=== PATIENT | male | born 1935 | race Caucasian/White ===

== ENCOUNTER 2017-02-20 17:01 | Emergency (ER) | payer MEDICARE, BC ==
[2017-02-20 17:40] VITALS: RESP 18
[2017-02-20] MEDS ORDERED: SODIUM CHLORIDE 0.9% 1,000 ML IV ONE (19:37)
[2017-02-20] MEDS ORDERED: MORPHINE SULFATE 4 MG/ML SYRINGE IVP STA (19:37)
[2017-02-20] MEDS ORDERED: RX INFO: IV CONTRAST WAS GIVEN 1 EACH MISC MISCELLANE PRN (19:37)
[2017-02-20] MEDS ORDERED: ONDANSETRON 4 MG/2 ML VIAL IVP STA (19:37)
--- NOTE | 2017-02-20 20:32 | ED ---
Abdominal Pain HPI - General Chief Complaint: Abdominal Pain Stated Complaint: ABDOMINAL PAIN X 1 DAYS Source: patient Mode of arrival: ambulatory Limitations: no limitations - History of Present Illness Initial Comments: 81-year-old male with past medical history of COPD, GI bleed, osteoporosis, prostate disorder, peptic ulcer disease, bleeding ulcer, upper endoscopy and lower endoscopy presented for evaluation of abdominal pain since last night at 10 PM. He states that he is feeling fine right up until this point and then has been having diffuse abdominal pain. He states that he previously has a perforated viscus that required surgical intervention and that this feels mildly similar. He states his last dose about 8 hours ago and he denies any chest pain, shortness of breath, fevers, chills, vomiting but does admit to nausea. - Related Data Home Medications Medication Instructions Recorded Confirmed Aspirin EC [Ecotrin Low Dose] 81 mg PO DAILY 09/20/14 02/20/17 Tamsulosin HCl [Flomax] 0.4 mg PO DAILY 09/25/14 02/20/17 [id number] [id number] 1 tab PO DAILY PRN 02/20/17 02/20/17 [Excedrin] Previous Rx's Medication Instructions Recorded HYDROcodone/APAP 5-325MG [[place] 1 - 2 tab PO Q6HR PRN #14 tab 02/20/17 5-325] Ibuprofen [Motrin] 800 mg PO Q8HR PRN #20 tab 02/20/17 Polyethylene Glycol 3350 [Miralax] 17 gm PO DAILY #30 packet 02/20/17 Allergies Allergy/AdvReac Type Severity Reaction Status Date / Time No Known Allergies Allergy Verified 02/20/17 19:17 Review of Systems ROS Statement: Those systems with pertinent positive or pertinent negative responses have been documented in the HPI. ROS Other: All systems not noted in ROS Statement are negative. Constitutional: Denies: fever, chills Eyes: Denies: eye pain, eye discharge, vision change ENT: Denies: ear pain, throat pain Respiratory: Denies: cough, dyspnea, wheezes, hemoptysis, stridor Cardiovascular: Denies: chest pain, palpitations, dyspnea on exertion, orthopnea , edema Endocrine: Denies: fatigue, polydipsia, polyuria Gastrointestinal: Reports: abdominal pain, nausea. Denies: vomiting, diarrhea, constipation, hematemesis, melena, hematochezia Genitourinary: Denies: urgency, dysuria Musculoskeletal: Denies: back pain, arthralgia, myalgia Skin: Denies: rash, lesions Neurological: Denies: headache, weakness, numbness Psychiatric: Denies: anxiety, depression Hematological/Lymphatic: Denies: easy bleeding, easy bruising Past Medical History Past Medical History: COPD, GI Bleed, Osteoarthritis (OA), Prostate Disorder Additional Past Medical History / Comment(s): PUD/bleeding ulcer/BPH/OA/tobacco use. History of Any Multi-Drug Resistant Organisms: None Reported Past Surgical History: No Surgical Hx Reported Additional Past Surgical History / Comment(s): upper endoscopy, colonoscopy, Past Anesthesia/Blood Transfusion Reactions: No Reported Reaction Past Psychological History: No Psychological Hx Reported Additional Psychological History / Comment(s): Pt resides in a home with and adult oscar and her family. He is independent. Pt drives a car. Smoking Status: Former smoker Past Alcohol Use History: None Reported, Rare Past Drug Use History: None Reported - Past Family History Father Family Medical History: No Reported History, COPD, Vascular Disorder (Father at age of 59 from cerebral aneurysm and he also had COPD) Mother Family Medical History: No Reported History, Hypertension (Mother at age of 79 she had a history of hypertension) Brother(s) Family Medical History: Coronary Artery Disease (CAD) (Brother at age 48 from massive myocardial infarction.) Sister(s) Family Medical History: No Reported History (One sister no major medical problem.) Daughter(s) Family Medical History: No Reported History (2 daughter one of them at age of 32 from a drug overdose.) General Exam Limitations: no limitations General appearance: alert, in no apparent distress Head exam: Present: atraumatic, normocephalic, normal inspection Eye exam: Present: normal appearance, PERRL, EOMI. Absent: scleral icterus, conjunctival injection, periorbital swelling ENT exam: Present: normal exam, mucous membranes moist Neck exam: Present: normal inspection. Absent: tenderness, meningismus, lymphadenopathy Respiratory exam: Present: normal lung sounds bilaterally. Absent: respiratory distress, wheezes, rales, rhonchi, stridor Cardiovascular Exam: Present: regular rate, normal rhythm, normal heart sounds. Absent: systolic murmur, diastolic murmur, rubs, gallop, clicks GI/Abdominal exam: Present: soft, tenderness, normal bowel sounds. Absent: distended, guarding, rebound, rigid Rectal exam: Present: deferred Extremities exam: Present: normal inspection, full ROM, normal capillary refill. Absent: tenderness, pedal edema, joint swelling, calf tenderness Back exam: Present: normal inspection Neurological exam: Present: alert, oriented X3, CN II-XII intact Psychiatric exam: Present: normal affect, normal mood Skin exam: Present: warm, dry, intact, normal color. Absent: rash Course Vital Signs 02/20/17 02/20/17 02/20/17 17:36 20:30 21:28 Temperature 98 F Pulse Rate 93 102 H 97 Respiratory 18 18 18 Rate Blood Pressure 178/99 153/79 160/80 O2 Sat by Pulse 96 97 100 Oximetry 02/20/17 23:02 Temperature 98.3 F Pulse Rate 98 Respiratory 18 Rate Blood Pressure 140/93 O2 Sat by Pulse 97 Oximetry Medical Decision Making - Medical Decision Making 81-year-old male with a past medical history of COPD, GI bleed, OA, prostate disorder, upper endoscopy, lower endoscopy presented for evaluation of diffuse abdominal pain since 10:00 last night. He has a past medical history of an abdominal perforation and states this feels similar. On physical examination he has a firm abdomen to palpation but the patient states that he works out a lot and it is only mildly tighter than normal. No pulsatile masses are palpated. Concern for recurrent perforation versus bowel traction. We'll obtain CT abdomen and pelvis with IV contrast, labs, EKG, chest x-ray and provide pain control and IV fluids. Labs revealed a mild leukocytosis but otherwise no other significant abnormalities. CT abdomen and pelvis showed prominent bilateral pelvic adenopathy consistent with metastatic carcinoma. The patient was reevaluated and had improvement in his pain and nausea. He was informed of these results with his family present and offered admission as he does not currently have a primary care physician and this would help get him established with both a PCP as well as hematology oncology. He acknowledged the benefit of this but stated that he would rather go home tonight as he is feeling much better. He was informed that he would be given referrals for both the on-call medicine physician as well as to referrals for hematology oncology. He was advised to make appointments and follow-up but to return if his symptoms should worsen or persist. The patient acknowledged an understanding of this information and agreed with this plan of care. - Lab Data Result diagrams: 02/20/17 20:15 02/20/17 20:15 Lab Results 02/20/17 02/20/17 02/20/17 Range/Units 20:15 20:15 20:15 WBC 12.7 H (3.8-10.6) k/uL RBC 5.82 (4.30-5.90) m/uL Hgb 16.5 (13.0-17.5) gm/dL Hct 47.7 (39.0-53.0) % MCV 82.0 (80.0-100.0) fL MCH 28.3 (25.0-35.0) pg MCHC 34.5 (31.0-37.0) g/dL RDW 14.1 (11.5-15.5) % Plt Count 194 (150-450) k/uL Neutrophils % 86 % Lymphocytes % 7 % Monocytes % 5 % Eosinophils % 1 % Basophils % 0 % Neutrophils # 10.9 H (1.3-7.7) k/uL Lymphocytes # 0.8 L (1.0-4.8) k/uL Monocytes # 0.6 (0-1.0) k/uL Eosinophils # 0.2 (0-0.7) k/uL Basophils # 0.1 (0-0.2) k/uL PT (9.0-12.0) sec INR (<1.1) APTT (22.0-30.0) sec Sodium 140 (137-145) mmol/L Potassium 3.8 (3.5-5.1) mmol/L Chloride 104 (98-107) mmol/L Carbon Dioxide 24 (22-30) mmol/L Anion Gap 12 mmol/L BUN 8 L (9-20) mg/dL Creatinine 1.00 (0.66-1.25) mg/dL Est GFR (MDRD) Af Amer >60 (>60 ml/min/1.73 sqM) Est GFR (MDRD) Non-Af >60 (>60 ml/min/1.73 sqM) Glucose 107 H (74-99) mg/dL Plasma Lactic Acid Nish 1.0 (0.7-2.0) mmol/L Calcium 9.6 (8.4-10.2) mg/dL Total Bilirubin 0.8 (0.2-1.3) mg/dL AST 22 (17-59) U/L ALT 32 (21-72) U/L Alkaline Phosphatase 60 (38-126) U/L Troponin I (0.000-0.034) ng/mL NT-Pro-B Natriuret Pep pg/mL Total Protein 6.9 (6.3-8.2) g/dL Albumin 4.1 (3.5-5.0) g/dL Lipase 48 (23-300) U/L 02/20/17 02/20/17 02/20/17 Range/Units 20:15 20:15 20:15 WBC (3.8-10.6) k/uL RBC (4.30-5.90) m/uL Hgb (13.0-17.5) gm/dL Hct (39.0-53.0) % MCV (80.0-100.0) fL MCH (25.0-35.0) pg MCHC (31.0-37.0) g/dL RDW (11.5-15.5) % Plt Count (150-450) k/uL Neutrophils % % Lymphocytes % % Monocytes % % Eosinophils % % Basophils % % Neutrophils # (1.3-7.7) k/uL Lymphocytes # (1.0-4.8) k/uL Monocytes # (0-1.0) k/uL Eosinophils # (0-0.7) k/uL Basophils # (0-0.2) k/uL PT 10.3 (9.0-12.0) sec INR 1.0 (<1.1) APTT 25.8 (22.0-30.0) sec Sodium (137-145) mmol/L Potassium (3.5-5.1) mmol/L Chloride (98-107) mmol/L Carbon Dioxide (22-30) mmol/L Anion Gap mmol/L BUN (9-20) mg/dL Creatinine (0.66-1.25) mg/dL Est GFR (MDRD) Af Amer (>60 ml/min/1.73 sqM) Est GFR (MDRD) Non-Af (>60 ml/min/1.73 sqM) Glucose (74-99) mg/dL Plasma Lactic Acid Nish (0.7-2.0) mmol/L Calcium (8.4-10.2) mg/dL Total Bilirubin (0.2-1.3) mg/dL AST (17-59) U/L ALT (21-72) U/L Alkaline Phosphatase (38-126) U/L Troponin I <0.012 (0.000-0.034) ng/mL NT-Pro-B Natriuret Pep 110 pg/mL Total Protein (6.3-8.2) g/dL Albumin (3.5-5.0) g/dL Lipase (23-300) U/L 02/20/17 20:24 Normal sinus rhythm with right bundle branch block and a ventricular rate of 98 , PA interval 194, QRS 120, QT/QTC 352/449. Disposition Clinical Impression: Abdominal pain, Pelvic lymphadenopathy, Nausea Disposition: HOME SELF-CARE Condition: Stable Instructions: Abdominal Pain (ED) Additional Instructions: Please use medication as discussed. Please follow up with family doctor if symptoms have not improved over the next two days. Please return to the emergency room if your symptoms increase or worsen or for any other concerns. Prescriptions: HYDROcodone/APAP 5-325MG [[place] 5-325] 1 - 2 tab PO Q6HR PRN #14 tab PRN Reason: Analgesia Ibuprofen [Motrin] 800 mg PO Q8HR PRN #20 tab PRN Reason: Analgesia Polyethylene Glycol 3350 [Miralax] 17 gm PO DAILY #30 packet Referrals: None,Stated [Primary Care Provider] - 1-2 days Franco Gill MD [STAFF PHYSICIAN] - 1-2 days Bridgett Amanda MD [STAFF PHYSICIAN] - 1-2 days Nelson Barraza MD [STAFF PHYSICIAN] - 1-2 days Time of Disposition: 22:44
[2017-02-20 20:36] LABS: Basophils # (A) 0.1 k/uL (0-0.2); Basophils % (A) 0 %; CH 29.2; CHCM 35.8; Eosinophils # (A) 0.2 k/uL (0-0.7); Eosinophils % (A) 1 %; HCT 47.7 % (39.0-53.0); HGB 16.5 gm/dL (13.0-17.5); Luc % (Auto) 1; Lymphocytes # (A) 0.8 k/uL (1.0-4.8); Lymphocytes % (A) 7 %; MCH 28.3 pg (25.0-35.0); MCHC 34.5 g/dL (31.0-37.0); Monocytes # (A) 0.6 k/uL (0-1.0); Monocytes % (A) 5 %; Neutrophils # (A) 10.9 k/uL (1.3-7.7); Neutrophils % (A) 86 %; RBC 5.82 m/uL (4.30-5.90); RDW 14.1 % (11.5-15.5); WBC 12.7 k/uL (3.8-10.6)
[2017-02-20 20:45] LABS: Partial Thromboplastin Time 25.8 sec (22.0-30.0); Prothrombin Time 10.3 sec (9.0-12.0)
[2017-02-20 20:48] LABS: ALT 32 U/L (21-72); AST 22 U/L (17-59); Alkaline Phosphatase 60 U/L (38-126); Anion Gap 12 mmol/L; Blood Urea Nitrogen 8 mg/dL (9-20); Calcium 9.6 mg/dL (8.4-10.2); Carbon Dioxide 24 mmol/L (22-30); Chloride 104 mmol/L (98-107); Glucose 107 mg/dL (74-99); Non-African American GFR(MDRD) >60 (>60 ml/min/1.73 sqM); Potassium 3.8 mmol/L (3.5-5.1); Sodium 140 mmol/L (137-145); Total Bilirubin 0.8 mg/dL (0.2-1.3); Total Protein 6.9 g/dL (6.3-8.2)
[2017-02-20] MEDS ORDERED: HYDROmorphone 1 MG/ML 1 ML SYRINGE IVP STA (21:54)
--- NOTE | 2017-02-20 22:05 | XR ---
EXAMINATION TYPE: XR chest 2V DATE OF EXAM: 02/20/2017 8:49 PM HISTORY: Pain TECHNIQUE: Frontal and lateral views of the chest are obtained. FINDINGS: There is no focal air space opacity, pleural effusion, or pneumothorax seen. The cardiac silhouette size is within normal limits. The osseous structures are intact. IMPRESSION: No acute cardiopulmonary process.
--- NOTE | 2017-02-20 22:16 | CT ---
EXAMINATION TYPE: CT abdomen pelvis w con DATE OF EXAM: 02/20/2017 9:24 PM COMPARISON: 08/28/2015 HISTORY: Generalized abdominal pain with nausea and constipation. CT DLP: 1500.00 mGycm Automated exposure control for dose reduction was used. TECHNIQUE: Helical acquisition of images was performed from the lung bases through the pelvis. CONTRAST: Performed without Oral Contrast and with IV Contrast, patient injected with 100 mL of Omnipaque 300. FINDINGS: LUNG BASES: No significant abnormality is appreciated. LIVER/GB: No significant abnormality is appreciated. PANCREAS: No significant abnormality is seen. SPLEEN: No significant abnormality is seen. ADRENALS: No significant abnormality is seen. KIDNEYS: No significant abnormality is seen. FREE AIR: No free air is visualized. RETROPERITONEAL ADENOPATHY: None visualized REPRODUCTIVE ORGANS: No significant abnormality is seen URINARY BLADDER: No significant abnormality is seen. PELVIC ADENOPATHY: There is right upper inguinal and right external iliac adenopathy, with the latte r measuring 2.6 x 2.1 cm in cross-section. This right internal adenopathy measuring 4.1 x 2.7 cm in c ross-section. There is left internal iliac adenopathy measuring 2.6 x 2.0 cm. PROSTATE AND URINARY BLADDER: There is heterogeneous attenuation of the prostate parenchyma with mode rate-plus prostate enlargement, and there is asymmetric prominence of the seminal vesicles, larger on the right. The urinary bladder is mildly distended, and there is relatively mild diffuse bladder mu ral thickening, particularly involving the dome of the urinary bladder. 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 OSSEOUS STRUCTURES: No significant abnormality is seen. BOWEL: No significant abnormality is seen. OTHER: Generalized atherosclerotic calcifications are seen throughout the arterial anatomy, without a neurysmal dilation. IMPRESSION: THERE IS PROMINENT BILATERAL PELVIC ADENOPATHY, CONSISTENT WITH METASTATIC CARCINOMA.
[2017-02-20 23:04] VITALS: BP 140/93; PULSE 98; TEMP 98.3
== END 2017-02-20 22:50 | disposition home or self-care (01) ==
LOC: EC 17:01
DX: R10.9 Unspecified abdominal pain (principal); R11.0 Nausea; R59.0 Localized enlarged lymph nodes; I45.10 Unspecified right bundle-branch block; Z79.82 Long term (current) use of aspirin; Z79.899 Other long term (current) drug therapy; Z87.891 Personal history of nicotine dependence
CPT/HCPCS: 99285; 96374; 96375 ×2; 96361; 36415; 93005; 83880; 80053; 83605; 83690; 84484; 85025; 85610; 85730; 71020; 74177; J2270; J2405; J1170; Q9967

== ENCOUNTER 2017-03-06 14:48 | Inpatient (IN) | payer MEDICARE, BC ==
[2017-03-06] MEDS ORDERED: diphenhydrAMINE 50 MG/ML 1 ML VIAL IVP STA (16:06)
[2017-03-06] MEDS ORDERED: HYDROmorphone 1 MG/ML 1 ML SYRINGE IVP STA ×2 (16:06→18:04)
[2017-03-06] MEDS ORDERED: SODIUM CHLORIDE 0.9% 1,000 ML IV STA (16:06)
[2017-03-06] MEDS ORDERED: METOCLOPRAMIDE 5 MG/ML 2 ML VIAL IVP STA (16:06)
--- NOTE | 2017-03-06 16:06 | ED ---
Abdominal Pain HPI - General Chief Complaint: Abdominal Pain Stated Complaint: Abd Pain Time Seen by Provider: 03/06/17 15:55 Source: patient, RN notes reviewed, old records reviewed Mode of arrival: ambulatory Limitations: no limitations - History of Present Illness Initial Comments: This is a pleasant 81-year-old male presenting to the emergency department with 2 days of right upper quadrant and right lower quadrant abdominal pain. Patient reports that the pain will last for 3-4 minutes and then go away. He reports that he did have one episode of vomiting 2 days ago. He reports that the pain seems to be exacerbated with eating. Patient states that because the pain is worse with leaning has not been having a normal diet over the past few days therefore is not had normal bowel movements. Patient states that he has been diagnosed with prostate cancer and had a CAT scan done 2 weeks ago. Patient reports that he does have a follow-up appointment because the CAT scan showed increased pelvic lymphadenopathy consistent with metastases from prostate cancer. Patient reports that he does have follow-up appointment with his oncologist within the next few weeks. They are informed of these results and if there is something related to this, they want to consult. Patient reports that he's had no fever or chills. Denies any difficulty urinating. Denies any pain radiating towards the back.Patient has a history of peptic ulcer disease, COPD, GI bleed, osteoporosis, prostate cancer. Patient denies any recent fever, chills, shortness of breath, chest pain, back pain, numbness or tingling, dysuria or hematuria, constipation or diarrhea, headaches or visual changes, or any other current symptoms - Related Data Home Medications Medication Instructions Recorded Confirmed Aspirin EC [Ecotrin Low Dose] 81 mg PO DAILY 09/20/14 03/06/17 Tamsulosin HCl [Flomax] 0.4 mg PO DAILY 09/25/14 03/06/17 [id number] 1 tab PO DAILY PRN 02/20/17 03/06/17 [Excedrin] Cyanocobalamin [Vitamin B-12] 500 mcg PO DAILY 03/06/17 03/06/17 Fluticasone Nasal Levan [Flonase 1 spray EA NOSTRIL DAILY 03/06/17 03/06/17 Nasal Levan] Lisinopril [Zestril] 2.5 mg PO DAILY 03/06/17 03/06/17 Allergies Allergy/AdvReac Type Severity Reaction Status Date / Time No Known Allergies Allergy Verified 03/06/17 17:08 Review of Systems ROS Statement: Those systems with pertinent positive or pertinent negative responses have been documented in the HPI. ROS Other: All systems not noted in ROS Statement are negative. Past Medical History Past Medical History: COPD, GI Bleed, Osteoarthritis (OA), Prostate Disorder Additional Past Medical History / Comment(s): PUD/bleeding ulcer/BPH/OA/tobacco use. History of Any Multi-Drug Resistant Organisms: None Reported Past Surgical History: No Surgical Hx Reported Additional Past Surgical History / Comment(s): upper endoscopy, colonoscopy, Past Anesthesia/Blood Transfusion Reactions: No Reported Reaction Past Psychological History: No Psychological Hx Reported Additional Psychological History / Comment(s): Pt resides in a home with and adult oscar and her family. He is independent. Pt drives a car. Smoking Status: Former smoker Past Alcohol Use History: None Reported, Rare Past Drug Use History: None Reported - Past Family History Father Family Medical History: No Reported History, COPD, Vascular Disorder (Father at age of 59 from cerebral aneurysm and he also had COPD) Mother Family Medical History: No Reported History, Hypertension (Mother at age of 79 she had a history of hypertension) Brother(s) Family Medical History: Coronary Artery Disease (CAD) (Brother at age 48 from massive myocardial infarction.) Sister(s) Family Medical History: No Reported History (One sister no major medical problem.) Daughter(s) Family Medical History: No Reported History (2 daughter one of them at age of 32 from a drug overdose.) General Exam Limitations: no limitations General appearance: alert, in no apparent distress Head exam: Present: atraumatic, normocephalic, normal inspection Eye exam: Present: normal appearance, PERRL, EOMI. Absent: scleral icterus, conjunctival injection, periorbital swelling ENT exam: Present: normal exam, mucous membranes moist Neck exam: Present: normal inspection. Absent: tenderness, meningismus, lymphadenopathy Respiratory exam: Present: normal lung sounds bilaterally. Absent: respiratory distress, wheezes, rales, rhonchi, stridor Cardiovascular Exam: Present: regular rate, normal rhythm, normal heart sounds. Absent: systolic murmur, diastolic murmur, rubs, gallop, clicks GI/Abdominal exam: Present: soft, tenderness (Patient is tender to palpation over the right upper quadrant and right lower quadrant.), normal bowel sounds. Absent: distended, guarding, rebound, rigid Extremities exam: Present: normal inspection, full ROM, normal capillary refill. Absent: tenderness, pedal edema, joint swelling, calf tenderness Back exam: Present: normal inspection Neurological exam: Present: alert, oriented X3, CN II-XII intact Psychiatric exam: Present: normal affect, normal mood Skin exam: Present: warm, dry, intact, normal color. Absent: rash Course Vital Signs 03/06/17 03/06/17 03/06/17 15:04 16:46 17:45 Temperature 96.8 F L Pulse Rate 97 91 95 Respiratory 18 20 18 Rate Blood Pressure 125/69 148/92 137/95 O2 Sat by Pulse 97 98 98 Oximetry 03/06/17 03/06/17 03/06/17 19:15 20:10 21:37 Temperature 97.6 F Pulse Rate 78 89 89 Respiratory 16 22 18 Rate Blood Pressure 142/70 153/79 120/76 O2 Sat by Pulse 97 97 96 Oximetry Medical Decision Making - Medical Decision Making A 1-year-old male presenting to emergency Department with right lower quadrant abdominal pain. Patient was given IV fluids and lab work and pain medication. Lab work was relatively unremarkable. Patient is significantly tender in the right lower quadrant. Patient was given a CT abdomen and pelvis with contrast. Evidence is evident a small bowel obstruction. Patient had nasogastric tube placed and 2 L of fluid was drained from the intestines. Patient CAT scan showed evidence of a dilated pancreatic duct no focal pancreatic findings. Amylase and lipase are normal. Patient CAT scan did show multiple areas of pelvic lymphadenopathy and sclerotic lesion on the iliac bone which could represent metastases. is currently complaining to see Dr. lucio thornton for a biopsy of his prostate and further workup. I discussed the case with Dr. Contreras and patient will be admitted for a small bowel obstruction and further evaluation of his pancreas and dilation and pelvic lymphadenopathy and other findings from the CAT scan. Discussed the case with the nurse practitioner and patient will be admitted to Dr. Saldana. She discussed consult to Dr. Zhao for surgery as well as Dr. lucio thornton for prostate enlargement and further evaluation. Patient agrees to admission. - Lab Data Result diagrams: 03/06/17 16:40 03/06/17 16:40 Lab Results 03/06/17 03/06/17 03/06/17 Range/Units 16:40 16:40 16:40 WBC 12.4 H (3.8-10.6) k/uL RBC 5.93 H (4.30-5.90) m/uL Hgb 16.5 (13.0-17.5) gm/dL Hct 47.2 (39.0-53.0) % MCV 79.6 L (80.0-100.0) fL MCH 27.8 (25.0-35.0) pg MCHC 35.0 (31.0-37.0) g/dL RDW 13.1 (11.5-15.5) % Plt Count 523 H D (150-450) k/uL Neutrophils % 80 % Lymphocytes % 12 % Monocytes % 3 % Eosinophils % 3 % Basophils % 0 % Neutrophils # 9.9 H (1.3-7.7) k/uL Lymphocytes # 1.5 (1.0-4.8) k/uL Monocytes # 0.4 (0-1.0) k/uL Eosinophils # 0.3 (0-0.7) k/uL Basophils # 0.0 (0-0.2) k/uL Poikilocytosis Slight PT (9.0-12.0) sec INR (<1.1) APTT (22.0-30.0) sec Sodium 140 (137-145) mmol/L Potassium 3.9 (3.5-5.1) mmol/L Chloride 99 (98-107) mmol/L Carbon Dioxide 31 H (22-30) mmol/L Anion Gap 10 mmol/L BUN 18 (9-20) mg/dL Creatinine 0.93 (0.66-1.25) mg/dL Est GFR (MDRD) Af Amer >60 (>60 ml/min/1.73 sqM) Est GFR (MDRD) Non-Af >60 (>60 ml/min/1.73 sqM) Glucose 137 H (74-99) mg/dL Plasma Lactic Acid Nish 1.9 (0.7-2.0) mmol/L Calcium 10.5 H (8.4-10.2) mg/dL Total Bilirubin 0.6 (0.2-1.3) mg/dL AST 24 (17-59) U/L ALT 27 (21-72) U/L Alkaline Phosphatase 102 (38-126) U/L Troponin I (0.000-0.034) ng/mL Total Protein 7.2 (6.3-8.2) g/dL Albumin 3.8 (3.5-5.0) g/dL Amylase 60 (30-110) U/L Lipase 75 (23-300) U/L Urine Color Urine Appearance (Clear) Urine pH (5.0-8.0) Ur Specific Wynne (1.001-1.035) Urine Protein (Negative) Urine Glucose (UA) (Negative) Urine Ketones (Negative) Urine Blood (Negative) Urine Nitrite (Negative) Urine Bilirubin (Negative) Urine Urobilinogen (<2.0) mg/dL Ur Leukocyte Esterase (Negative) Urine RBC (0-5) /hpf Urine WBC (0-5) /hpf Ur Squamous Epith Cells (0-4) /hpf Urine Bacteria (None) /hpf Hyaline Casts (0-2) /lpf Urine Mucus (None) /hpf 03/06/17 03/06/17 03/06/17 Range/Units 16:40 16:40 17:53 WBC (3.8-10.6) k/uL RBC (4.30-5.90) m/uL Hgb (13.0-17.5) gm/dL Hct (39.0-53.0) % MCV (80.0-100.0) fL MCH (25.0-35.0) pg MCHC (31.0-37.0) g/dL RDW (11.5-15.5) % Plt Count (150-450) k/uL Neutrophils % % Lymphocytes % % Monocytes % % Eosinophils % % Basophils % % Neutrophils # (1.3-7.7) k/uL Lymphocytes # (1.0-4.8) k/uL Monocytes # (0-1.0) k/uL Eosinophils # (0-0.7) k/uL Basophils # (0-0.2) k/uL Poikilocytosis PT 10.1 (9.0-12.0) sec INR 1.0 (<1.1) APTT 28.5 (22.0-30.0) sec Sodium (137-145) mmol/L Potassium (3.5-5.1) mmol/L Chloride (98-107) mmol/L Carbon Dioxide (22-30) mmol/L Anion Gap mmol/L BUN (9-20) mg/dL Creatinine (0.66-1.25) mg/dL Est GFR (MDRD) Af Amer (>60 ml/min/1.73 sqM) Est GFR (MDRD) Non-Af (>60 ml/min/1.73 sqM) Glucose (74-99) mg/dL Plasma Lactic Acid Nish (0.7-2.0) mmol/L Calcium (8.4-10.2) mg/dL Total Bilirubin (0.2-1.3) mg/dL AST (17-59) U/L ALT (21-72) U/L Alkaline Phosphatase (38-126) U/L Troponin I <0.012 (0.000-0.034) ng/mL Total Protein (6.3-8.2) g/dL Albumin (3.5-5.0) g/dL Amylase (30-110) U/L Lipase (23-300) U/L Urine Color Yellow Urine Appearance Clear (Clear) Urine pH 5.5 (5.0-8.0) Ur Specific Wynne 1.050 H (1.001-1.035) Urine Protein Trace H (Negative) Urine Glucose (UA) Negative (Negative) Urine Ketones Negative (Negative) Urine Blood Negative (Negative) Urine Nitrite Negative (Negative) Urine Bilirubin Negative (Negative) Urine Urobilinogen 2.0 (<2.0) mg/dL Ur Leukocyte Esterase Trace H (Negative) Urine RBC 3 (0-5) /hpf Urine WBC 6 H (0-5) /hpf Ur Squamous Epith Cells <1 (0-4) /hpf Urine Bacteria Rare H (None) /hpf Hyaline Casts 7 H (0-2) /lpf Urine Mucus Occasional H (None) /hpf 03/06/17 16:43 EKG shows sinus rhythm. Evidence of right bundle branch block. Ventricular rate 79. Ecchymoses. There is duration 134 seconds. QT QTc is 4/467. No evidence of ST elevation or T-wave inversion. No evidence of a short ventricular arrhythmias. EKG was compared to 02/20/2017. - Radiology Data Radiology results: report reviewed Scattered air-fluid levels with minimally dilated loops of small bowel favored to represent ileus. No acute cardiopulmonary process. Unchanged from prior exam. CT abdomen and pelvis just findings of small bowel obstruction with transition point in the right lower quadrant surrounding mesenteric edema/inflammatory fat stranding. Extensive pelvic adenopathy with largest colonic operation a lymph node measuring 2.5 x 4.2 cm. Consideration could be given to percutaneous biopsy. Heterogeneous and grossly enlarged prostate. Given extensive local adenopathy correlation with PSA could strong consideration for prostate biopsy should be given. Also a solitary irregular sclerotic lesion within the left iliac bone that given the constellation of the above findings could be represent metastasis focused versus irregular bone island. Phone scan could be performed for further evaluation. Also there is evidence of dilation of the main pancreatic duct without focal pancreatic lesion. MRCP could be performed for further observation for underlying mass versus stricture. Disposition Clinical Impression: Small bowel obstruction, Pancreatic duct dilated, Pelvic lymphadenopathy, BPH ( benign prostatic hyperplasia) Disposition: ADMITTED IP TO THIS HOSP Condition: Stable Time of Disposition: 19:06
[2017-03-06 17:02] LABS: Basophils % (A) 0 %; CH 28.5; CHCM 35.9; Eosinophils # (A) 0.3 k/uL (0-0.7); Eosinophils % (A) 3 %; HCT 47.2 % (39.0-53.0); HGB 16.5 gm/dL (13.0-17.5); Luc # (Auto) 0.18; Luc % (Auto) 1; Lymphocytes # (A) 1.5 k/uL (1.0-4.8); Lymphocytes % (A) 12 %; MCH 27.8 pg (25.0-35.0); MCV 79.6 fL (80.0-100.0); Monocytes # (A) 0.4 k/uL (0-1.0); Monocytes % (A) 3 %; Neutrophils # (A) 9.9 k/uL (1.3-7.7); Neutrophils % (A) 80 %; Poikilocytosis Slight; RBC 5.93 m/uL (4.30-5.90); RDW 13.1 % (11.5-15.5); WBC 12.4 k/uL (3.8-10.6); WBC (Perox) 12.94
[2017-03-06] MEDS ORDERED: RX INFO: IV CONTRAST WAS GIVEN 1 EACH MISC MISCELLANE PRN (17:09)
[2017-03-06 17:10] LABS: ALT 27 U/L (21-72); AST 24 U/L (17-59); Alkaline Phosphatase 102 U/L (38-126); Amylase 60 U/L (30-110); Anion Gap 10 mmol/L; Blood Urea Nitrogen 18 mg/dL (9-20); Calcium 10.5 mg/dL (8.4-10.2); Carbon Dioxide 31 mmol/L (22-30); Chloride 99 mmol/L (98-107); Glucose 137 mg/dL (74-99); Non-African American GFR(MDRD) >60 (>60 ml/min/1.73 sqM); Potassium 3.9 mmol/L (3.5-5.1); Sodium 140 mmol/L (137-145); Total Bilirubin 0.6 mg/dL (0.2-1.3); Total Protein 7.2 g/dL (6.3-8.2)
--- NOTE | 2017-03-06 17:11 | XR ---
EXAMINATION TYPE: XR chest 2V DATE OF EXAM: 03/06/2017 COMPARISON: NONE HISTORY: Nausea and right-sided chest pain/abdominal pain. TECHNIQUE: Frontal and lateral views of the chest are obtained. FINDINGS: There is no pleural effusion or pneumothorax. Subtle increased density in the left lung ba ses thought to represent overlapping structures as it is not reproduced on the lateral image. No foca l consolidation. The cardiac silhouette size is within normal limits. The osseous structures are in tact. Degenerative changes are appreciated of the visualized thoracic spine and right acromioclavicul ar joint. IMPRESSION: No acute cardiopulmonary process, unchanged from the prior exam.
--- NOTE | 2017-03-06 17:13 | XR ---
EXAMINATION TYPE: XR KUB DATE OF EXAM: 03/06/2017 COMPARISON: NONE HISTORY: Abdominal pain and nausea TECHNIQUE: Single view upright abdominal radiograph was performed. FINDINGS: Few air-fluid levels are scattered throughout the abdomen within mildly dilated loops of sm all bowel. Largest loop of small bowel measures up to 3.5 cm within the mid abdomen. No abnormal calc ifications are appreciated within the abdomen or pelvis. Air is noted throughout the descending colon and sigmoid colon as well as within the rectal vault. Atheromatous changes are appreciated of the il iac arteries and their branches. Degenerative changes are seen of the femoral acetabular joints and l umbosacral spine. IMPRESSION: Scattered air-fluid levels within minimally dilated loops of small bowel favored to repre sent ileus.
[2017-03-06 17:15] LABS: Partial Thromboplastin Time 28.5 sec (22.0-30.0); Prothrombin Time 10.1 sec (9.0-12.0)
[2017-03-06 18:04] LABS: Appearance,Urine Clear (Clear); Bacteria,Urine Rare /hpf; Bilirubin,Urine Negative (Negative); Glucose,Urine (UA) Negative (Negative); Ketones,Urine Negative (Negative); Leukocyte Esterase,Urine Trace (Negative); Mucus,Urine Occasional /hpf; Nitrite,Urine Negative (Negative); PH, Urine 5.5 (5.0-8.0); Particle Count 5193; Protein,Urine Trace (Negative); RBC,Urine 3 /hpf (0-5); Squamous Epithelial Cell,Urine <1 /hpf (0-4); UA Billing (MACRO vs. MICRO) MICRO; WBC,Urine 6 /hpf (0-5)
--- NOTE | 2017-03-06 18:45 | CT ---
EXAMINATION TYPE: CT abdomen pelvis w con DATE OF EXAM: 03/06/2017 COMPARISON: NONE HISTORY: Right sided pain with nausea CT DLP: 940.9 mGycm Automated exposure control for dose reduction was used. TECHNIQUE: Helical acquisition of images was performed from the lung bases through the pelvis. CONTRAST: Performed without Oral Contrast and with IV Contrast, patient injected with 100 mL of Omnipaque 300. FINDINGS: LUNG BASES: Minimal bibasilar subsegmental atelectasis. LIVER/GB: Few scattered hypoattenuated hepatic lesions are seen predominating within the left lobe th at are subcentimeter and too small to accurately characterize, although may simply represent hepatic cysts. PANCREAS: The main pancreatic duct is dilated beginning at the pancreatic head/body junction extendin g throughout the pancreatic head, appearing to be dilated as it meets the common bile duct near the a mpulla of Vater. No radiographic sequela of chronic pancreatitis are noted. No side branch dilation i s seen. No evidence of acute pancreatitis. No discrete pancreatic mass or abnormal pancreatic enhance ment is appreciated. No intrahepatic or extrahepatic biliary ductal dilatation is seen. SPLEEN: No significant abnormality is seen. ADRENALS: No significant abnormality is seen. KIDNEYS: No significant abnormality is seen. FREE AIR: No free air is visualized. RETROPERITONEAL ADENOPATHY: None visualized REPRODUCTIVE ORGANS: The prostate is grossly enlarged and heterogenous containing calcifications with in the central gland. Prostate measures up to 6.6 cm in greatest transverse dimension with impression upon the posterior anterior urinary bladder. URINARY BLADDER: No significant abnormality is seen. PELVIC ADENOPATHY: Extensive high density pelvic adenopathy is appreciated greatest within the right iliac chain with the largest conglomeration of lymph nodes measuring up to 2.5 cm in short axis by 4 .2 cm situated between the internal and external iliac vasculature. Similarly on the left along the p elvic sidewall there is a second conglomeration of lymph nodes injuring 2.5 cm in short axis. Large e xternal chain iliac node anterior to the acetabulum measures 2.0 cm in short axis. Superficial inguin al lymphadenopathy is less pronounced. No evidence of periaortic or mesenteric adenopathy. OSSEOUS STRUCTURES: Solitary sclerotic lesion is seen within the left iliac bone with irregular jason ins. BOWEL: Large descending duodenal diverticulum is noted. There is gastrectasis without evidence of ga stric outlet obstruction. Numerous loops of small bowel are dilated predominating within the low cent ral abdomen measuring up to 4.0 cm. Transition point with loops of distally decompressed small bowel appears to be located within the right lower quadrant anterior to the psoas muscle. Mesenteric fat st randing is seen within the right lower quadrant. No evidence of pneumatosis intestinalis. Numerous si gmoid diverticula are noted without pericolonic fat stranding. Anastomotic site is seen within the sm all bowel within the right mid abdomen. OTHER: IMPRESSION: 1. FINDINGS SUGGESTING SMALL BOWEL OBSTRUCTION WITH TRANSITION POINT IN THE RIGHT LOWER QUADRANT AND SURROUNDING MESENTERIC EDEMA/INFLAMMATORY FAT STRANDING. 2. EXTENSIVE PELVIC ADENOPATHY WITH THE LARGEST CONGLOMERATION OF LYMPH NODES MEASURING 2.5 X 4.2 CM. CONSIDERATION COULD BE GIVEN TO PERCUTANEOUS BIOPSY. 3. HETEROGENOUS AND GROSSLY ENLARGED PROSTATE. GIVEN EXTENSIVE LOCAL PELVIC ADENOPATHY CORRELATION WI TH PSA, DIGITAL RECTAL EXAM AND CONSIDERATION FOR PROSTATE BIOPSY SHOULD BE GIVEN. 4. SOLITARY IRREGULAR SCLEROTIC LESION WITHIN THE LEFT ILIAC BONE THAT GIVEN THE CONSTELLATION OF ABO VE FINDINGS COULD REPRESENT METASTATIC FOCUS VERSUS IRREGULAR BONE ISLAND. BONE SCAN COULD BE PERFORM ED FOR FURTHER EVALUATION. 5. DILATION OF THE MAIN PANCREATIC DUCT WITHOUT FOCAL PANCREATIC LESION. MRCP COULD BE PERFORMED FOR FURTHER EVALUATION TO EVALUATE FOR UNDERLYING MASS VERSUS STRICTURE.
[2017-03-06] MEDS ORDERED: LORazepam 2 MG/ML SYRINGE IV PRN (19:29)
[2017-03-06] MEDS ORDERED: NALOXONE 0.4 MG/ML 1 ML VIAL IV PRN (19:29)
[2017-03-06] MEDS: HYDROmorphone 1 MG/ML 1 ML SYRINGE IV PRN (20:08)
[2017-03-06] MEDS: SODIUM CHLORIDE 0.9% 1,000 ML IV SCH (22:52)
[2017-03-06 23:00] VITALS: RESP 16
[2017-03-06] MEDS ORDERED: ONDANSETRON 4 MG/2 ML VIAL IVP PRN (23:23)
[2017-03-06] MEDS ORDERED: BENZOCAINE/MENTHOL LOZENG 1 EACH LOZENGE MUCOUS MEM PRN (23:26)
[2017-03-07] MEDS: HYDROmorphone 1 MG/ML 1 ML SYRINGE IV PRN (00:57)
[2017-03-07 01:43] LABS: Glucose,Whole Blood 170 mg/dL (75-99)
[2017-03-07 07:06] LABS: Glucose,Whole Blood 140 mg/dL (75-99)
[2017-03-07] MEDS: SODIUM CHLORIDE 0.9% 1,000 ML IV SCH ×3 (07:36→20:03)
[2017-03-07] MEDS: HEPARIN SODIUM,PORCINE 5,000 UNIT/ML 1 ML VIAL SQ SCH ×2 (07:56→20:06)
[2017-03-07 08:12] LABS: Basophils % (A) 0 %; CHCM 34.6; Eosinophils % (A) 0 %; HCT 45.4 % (39.0-53.0); HDW 3.55; HGB 15.1 gm/dL (13.0-17.5); Luc # (Auto) 0.15; Luc % (Auto) 1; Lymphocytes % (A) 9 %; MCHC 33.2 g/dL (31.0-37.0); MCV 81.3 fL (80.0-100.0); Monocytes # (A) 0.6 k/uL (0-1.0); Monocytes % (A) 5 %; Neutrophils % (A) 85 %; Poikilocytosis Slight; RBC 5.58 m/uL (4.30-5.90); RDW 13.4 % (11.5-15.5); WBC 11.8 k/uL (3.8-10.6); WBC (Perox) 11.82
[2017-03-07 08:20] LABS: Anion Gap 9 mmol/L; Blood Urea Nitrogen 26 mg/dL (9-20); Calcium 9.6 mg/dL (8.4-10.2); Carbon Dioxide 30 mmol/L (22-30); Chloride 103 mmol/L (98-107); Glucose 133 mg/dL (74-99); Magnesium 2.2 mg/dL (1.6-2.3); Non-African American GFR(MDRD) >60 (>60 ml/min/1.73 sqM); Potassium 4.3 mmol/L (3.5-5.1); Sodium 142 mmol/L (137-145)
[2017-03-07] MEDS: PANTOPRAZOLE 40 MG/10 ML VIAL IV SCH (09:49)
[2017-03-07] MEDS ORDERED: KETOROLAC 30 MG/ML 1 ML VIAL IVP PRN (10:06)
[2017-03-07 12:03] LABS: Glucose,Whole Blood 113 mg/dL (75-99)
[2017-03-07] MEDS: HYDROmorphone 1 MG/ML 1 ML SYRINGE IVP PRN ×2 (14:25→20:03)
--- NOTE | 2017-03-07 15:12 | HP ---
DATE OF ADMISSION: Patient is a very pleasant 81-year-old gentleman who came in with complaints of diffuse mild abdominal pain. Patient was having nausea, vomiting. Patient was subsequently admitted. He was found to have a partial small bowel obstruction. Patient was subsequently admitted. Patient's CT of the abdomen also showed some significant adenopathy along with pancreatic bile ductal dilatation. Patient has prostate cancer, follows with Urology as an outpatient. Patient had leukocytosis without any signs or symptoms of sepsis. Patient has an NG tube which drained about 1.8 liters since yesterday. Patient is at present on 125 mL of normal saline with mildly worsening creatinine. The NG tube drainage did slow down. REVIEW OF SYSTEMS: CONSTITUTIONAL: No fever, no malaise, no fatigue. HEENT: No recent visual problems or hearing problems. Denied any sore throat. CARDIOVASCULAR: No chest pain, orthopnea, PND, no palpitations, no syncope. PULMONARY: No shortness of breath, no cough, no hemoptysis. GASTROINTESTINAL: As described in HPI. NEUROLOGICAL: No headaches, no weakness, no numbness. HEMATOLOGICAL: Denies any bleeding or petechiae. GENITOURINARY: Denies any burning micturition, frequency, or urgency. MUSCULOSKELETAL/RHEUMATOLOGICAL: Denies any joint pain, swelling, or any muscle pain. ENDOCRINE: Denies any polyuria or polydipsia. The rest of the 14 point review of systems is negative. Home medications include: 1. Aspirin. 2. Tamsulosin. 3. Cyanocobalamin. 4. Fluticasone. 5. Lisinopril. ALLERGIES: NO KNOWN DRUG ALLERGIES. Past medical history is significant for: 1. COPD, but patient is not taking any medications at home. 2. GI bleed in the past. 3. Prostate cancer, for which patient follows with Urology. SOCIAL HISTORY: Former smoker. Denied any alcohol abuse or any drug abuse. FAMILY HISTORY: Father had COPD and at age 59 with cerebral aneurysm. Mother had hypertension, at age 79. Brother had coronary artery disease. PHYSICAL EXAMINATION: VITAL SIGNS: Temperature 98.4, pulse of 89, respiratory rate of 16. Blood pressure is 119/61. Saturating at 92% on room air. GENERAL: The patient is alert and oriented x3, not in any acute distress. Well developed, well nourished. HEENT: Pupils are round and equally reacting to light. EOMI. No scleral icterus. No conjunctival pallor. Normocephalic, atraumatic. No pharyngeal erythema. No thyromegaly. CARDIOVASCULAR: S1 and S2 present. No murmurs, rubs, or gallops. PULMONARY: Chest is clear to auscultation, no wheezing or crackles. ABDOMEN: Patient does have fairly good bowel sounds. Abdomen distention improved apparently since yesterday. No abdominal pain. Patient has an NG tube in place. MUSCULOSKELETAL: No joint swelling or deformity. EXTREMITIES: No cyanosis, clubbing, or pedal edema. NEUROLOGICAL: Gross neurological examination did not reveal any focal deficits. SKIN: No rashes. LABORATORY DATA: CBC, CMP are abnormal for leukocytosis with WBC count of 12,400; now came down to 11,800. BUN of 26, creatinine 1.16. ASSESSMENT AND PLAN: 1. Partial small bowel obstruction. Patient has an NG tube. Conservative measures. IV fluids at 125 mL/hour. 2. Chronic obstructive pulmonary disease without any acute exacerbation. Will use albuterol as needed. 3. Prostate cancer, for which he is following with Urology. Patient has metastatic disease as well. 4. Hypertension. Hold off antihypertensives because of severe nausea, vomiting. Patient is on Lisinopril, which will be held at this point of time. 5. Tachycardia secondary to dehydration, which is expected to improve with IV fluids. 6. Leukocytosis, reactive response secondary to partial small bowel obstruction. I did not see signs or symptoms of infection, particularly pneumonia or UTI at this time, although patient's urine showed rare bacteria.
--- NOTE | 2017-03-07 16:23 | P.GSCN ---
History of Present Illness Consult date: 03/07/17 Reason for Consult: Bowel obstruction History of present illness: Patient came to the hospital with complaints of crampy abdominal pain and bloating and nausea. He was having vomiting but that was a minor issue he states. This was going on for the last few weeks reportedly. He is having bowel function he states. Even today is passing flatus. A CAT scan was performed which revealed findings consistent with either ileus or bowel obstruction. The distended small bowel is seen entering into the right lower quadrant were gradually tapers. The patient has a history of a previous bowel obstruction. He did not know the cause for that. There is evidence of a previous small bowel resection on CAT scan. This was performed [place] [address] Medina. He is complaining of pain at the nasogastric tube site. He says his abdominal pain has now resolved. He did have quite significant nasogastric output over 2 L in the first several hours. His white blood cell count is 11.8. Hemodynamically he is stable. The CAT scan additionally shows a distended pancreatic duct. Proximal pancreatic pathology has not been completely ruled out. Review of Systems The patient denies any acute changes in his vision or hearing, no dysphagia or odynophagia, no chest pain or shortness of breath, no dysuria or hematuria, no headache, no runny nose, no rectal bleeding or melena, no unexplained weight loss Past Medical History Past Medical History: COPD, GI Bleed, Osteoarthritis (OA), Prostate Disorder Additional Past Medical History / Comment(s): PUD/bleeding ulcer/BPH/OA/tobacco use. History of Any Multi-Drug Resistant Organisms: None Reported Past Surgical History: No Surgical Hx Reported Additional Past Surgical History / Comment(s): upper endoscopy, colonoscopy, Past Anesthesia/Blood Transfusion Reactions: No Reported Reaction Past Psychological History: No Psychological Hx Reported Additional Psychological History / Comment(s): Pt resides in a home with and adult oscar and her family. He is independent. Pt drives a car. Smoking Status: Former smoker Past Alcohol Use History: None Reported, Rare Additional Past Alcohol Use History / Comment(s): smoked from 1946 to 1974 2 ppd. Past Drug Use History: None Reported Additional Drug Use History / Comment(s): used cocaine in the s - Past Family History Father Family Medical History: No Reported History, COPD, Vascular Disorder (Father at age of 59 from cerebral aneurysm and he also had COPD) Additional Family Medical History / Comment(s): age 59 cerebral anuerysm Mother Family Medical History: No Reported History, Hypertension (Mother at age of 79 she had a history of hypertension) Brother(s) Family Medical History: Coronary Artery Disease (CAD) (Brother at age 48 from massive myocardial infarction.) Additional Family Medical History / Comment(s): at age 48 massive mi Sister(s) Family Medical History: No Reported History (One sister no major medical problem.) Daughter(s) Family Medical History: No Reported History (2 daughter one of them at age of 32 from a drug overdose.) Medications and Allergies Home Medications Medication Instructions Recorded Confirmed Type Aspirin EC [Ecotrin Low Dose] 81 mg PO DAILY 09/20/14 03/06/17 History Tamsulosin HCl [Flomax] 0.4 mg PO DAILY 09/25/14 03/06/17 History [id number] 1 tab PO DAILY PRN 02/20/17 03/06/17 History [Excedrin] Cyanocobalamin [Vitamin B-12] 500 mcg PO DAILY 03/06/17 03/06/17 History Fluticasone Nasal [employer] [Flonase 1 spray EA NOSTRIL DAILY 03/06/17 03/06/17 History Nasal [employer]] Lisinopril [Zestril] 2.5 mg PO DAILY 03/06/17 03/06/17 History Allergies Allergy/AdvReac Type Severity Reaction Status Date / Time No Known Allergies Allergy Verified 03/06/17 17:08 Surgical - Exam Vital Signs Temp Pulse Resp BP Pulse Ox 96.8 F L 97 18 125/69 97 03/06/17 15:04 03/06/17 15:04 03/06/17 15:04 03/06/17 15:04 03/06/17 15:04 Physical exam: General: Well-developed, well-nourished HEENT: Normocephalic, sclerae nonicteric Abdomen: Nontender, nondistended, positive bowel sounds, previous incision noted Extremities: No edema Neuro: Alert and oriented Results - Labs 03/07/17 07:40 03/07/17 07:40 Abnormal Lab Results - Last 24 Hours (Table) 03/06/17 03/06/17 03/06/17 Range/Units 16:40 16:40 17:53 WBC 12.4 H (3.8-10.6) k/uL RBC 5.93 H (4.30-5.90) m/uL MCV 79.6 L (80.0-100.0) fL Plt Count 523 H D (150-450) k/uL Neutrophils # 9.9 H (1.3-7.7) k/uL Carbon Dioxide 31 H (22-30) mmol/L BUN (9-20) mg/dL Glucose 137 H (74-99) mg/dL POC Glucose (mg/dL) (75-99) mg/dL Calcium 10.5 H (8.4-10.2) mg/dL Ur Specific [place] 1.050 H (1.001-1.035) Urine Protein Trace H (Negative) Ur Leukocyte Esterase Trace H (Negative) Urine WBC 6 H (0-5) /hpf Urine Bacteria Rare H (None) /hpf Hyaline Casts 7 H (0-2) /lpf Urine Mucus Occasional H (None) /hpf 03/07/17 03/07/17 03/07/17 Range/Units 01:30 07:05 07:40 WBC 11.8 H (3.8-10.6) k/uL RBC (4.30-5.90) m/uL MCV (80.0-100.0) fL Plt Count 528 H (150-450) k/uL Neutrophils # 10.0 H (1.3-7.7) k/uL Carbon Dioxide (22-30) mmol/L BUN (9-20) mg/dL Glucose (74-99) mg/dL POC Glucose (mg/dL) 170 H 140 H (75-99) mg/dL Calcium (8.4-10.2) mg/dL Ur Specific [place] (1.001-1.035) Urine Protein (Negative) Ur Leukocyte Esterase (Negative) Urine WBC (0-5) /hpf Urine Bacteria (None) /hpf Hyaline Casts (0-2) /lpf Urine Mucus (None) /hpf 03/07/17 03/07/17 Range/Units 07:40 12:02 WBC (3.8-10.6) k/uL RBC (4.30-5.90) m/uL MCV (80.0-100.0) fL Plt Count (150-450) k/uL Neutrophils # (1.3-7.7) k/uL Carbon Dioxide (22-30) mmol/L BUN 26 H (9-20) mg/dL Glucose 133 H (74-99) mg/dL POC Glucose (mg/dL) 113 H (75-99) mg/dL Calcium (8.4-10.2) mg/dL Ur Specific [place] (1.001-1.035) Urine Protein (Negative) Ur Leukocyte Esterase (Negative) Urine WBC (0-5) /hpf Urine Bacteria (None) /hpf Hyaline Casts (0-2) /lpf Urine Mucus (None) /hpf Diabetes panel 03/06/17 03/07/17 Range/Units 16:40 07:40 Sodium 140 142 (137-145) mmol/L Potassium 3.9 4.3 (3.5-5.1) mmol/L Chloride 99 103 (98-107) mmol/L Carbon Dioxide 31 H 30 (22-30) mmol/L BUN 18 26 H (9-20) mg/dL Creatinine 0.93 1.16 (0.66-1.25) mg/dL Glucose 137 H 133 H (74-99) mg/dL Calcium 10.5 H 9.6 (8.4-10.2) mg/dL AST 24 (17-59) U/L ALT 27 (21-72) U/L Alkaline Phosphatase 102 (38-126) U/L Total Protein 7.2 (6.3-8.2) g/dL Albumin 3.8 (3.5-5.0) g/dL Calcium panel 03/06/17 03/07/17 Range/Units 16:40 07:40 Calcium 10.5 H 9.6 (8.4-10.2) mg/dL Albumin 3.8 (3.5-5.0) g/dL Pituitary panel 03/06/17 03/07/17 Range/Units 16:40 07:40 Sodium 140 142 (137-145) mmol/L Potassium 3.9 4.3 (3.5-5.1) mmol/L Chloride 99 103 (98-107) mmol/L Carbon Dioxide 31 H 30 (22-30) mmol/L BUN 18 26 H (9-20) mg/dL Creatinine 0.93 1.16 (0.66-1.25) mg/dL Glucose 137 H 133 H (74-99) mg/dL Calcium 10.5 H 9.6 (8.4-10.2) mg/dL Adrenal panel 03/06/17 03/07/17 Range/Units 16:40 07:40 Sodium 140 142 (137-145) mmol/L Potassium 3.9 4.3 (3.5-5.1) mmol/L Chloride 99 103 (98-107) mmol/L Carbon Dioxide 31 H 30 (22-30) mmol/L BUN 18 26 H (9-20) mg/dL Creatinine 0.93 1.16 (0.66-1.25) mg/dL Glucose 137 H 133 H (74-99) mg/dL Calcium 10.5 H 9.6 (8.4-10.2) mg/dL Total Bilirubin 0.6 (0.2-1.3) mg/dL AST 24 (17-59) U/L ALT 27 (21-72) U/L Alkaline Phosphatase 102 (38-126) U/L Total Protein 7.2 (6.3-8.2) g/dL Albumin 3.8 (3.5-5.0) g/dL Assessment and Plan (1) Small bowel obstruction Narrative/Plan: Suspect small bowel obstruction secondary to intra-abdominal adhesions. Underlying ileus is certainly still a possibility however. Would continue conservative approach at this time. Repeat x-rays are pending for tomorrow. Keep nasogastric tube to suction. Patient will require further workup of his dilated pancreatic duct at some point. Status: Acute
[2017-03-07 17:48] LABS: Glucose,Whole Blood 109 mg/dL (75-99)
--- NOTE | 2017-03-07 18:09 | P.CONS ---
History of Present Illness - Reason for Consult Consult date: 03/07/17 Lymphadenopathy. 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 He had an enlarged prostate at that time and elevated PSA. He was following with the urology for possible prostate cancer. However he states that he was never definitely diagnosed with the prostate cancer or had a biopsy. According to the patient, he has not followed with urology for 1-2 years now due to family issues. The patient consented to the emergency room with complains of somewhat diffuse abdominal pain, along with the nausea over the last few days. He was found to have evidence of possible small bowel obstruction and was admitted with NG tube placed. He had CT of the abdomen and pelvis done, which showed the transition point in the right lower quadrant. Enlarged prostate, as well as significant adenopathy in the pelvis and lower abdomen was noted. In addition, dilatation of the pancreatic duct throughout the body of the pancreas was seen, without any definite mass .Consult was therefore placed a further evaluation. Review of Systems Constitutional: Reports poor appetite, Reports weight loss Eyes: denies blurred vision, denies pain Ears: deny: decreased hearing, ear discharge, earache, tinnitus Ears, nose, mouth and throat: Denies headache, Denies sore throat Cardiovascular: Reports decreased exercise tolerance Respiratory: Denies cough Gastrointestinal: Reports abdominal pain, Reports nausea Genitourinary: Reports as per HPI, Reports urinary frequency, Reports urinary hesitancy Musculoskeletal: Denies myalgias Integumentary: Denies pruritus, Denies rash Neurological: Reports weakness Psychiatric: Denies anxiety, Denies depression Endocrine: Reports fatigue, Reports weight change Hematologic/Lymphatic: Reports as per HPI, Reports lymphadenopathy Past Medical History Past Medical History: COPD, GI Bleed, Osteoarthritis (OA), Prostate Disorder Additional Past Medical History / Comment(s): PUD/bleeding ulcer/BPH/OA/tobacco use. History of Any Multi-Drug Resistant Organisms: None Reported Past Surgical History: No Surgical Hx Reported Additional Past Surgical History / Comment(s): upper endoscopy, colonoscopy, Past Anesthesia/Blood Transfusion Reactions: No Reported Reaction Past Psychological History: No Psychological Hx Reported Additional Psychological History / Comment(s): Pt resides in a home with and adult oscar and her family. He is independent. Pt drives a car. Smoking Status: Former smoker Past Alcohol Use History: None Reported, Rare Additional Past Alcohol Use History / Comment(s): smoked from 1946 to 1974 2 ppd. Past Drug Use History: None Reported Additional Drug Use History / Comment(s): used cocaine in the - Past Family History Father Family Medical History: No Reported History, COPD, Vascular Disorder (Father at age of 59 from cerebral aneurysm and he also had COPD) Additional Family Medical History / Comment(s): age 59 cerebral anuerysm Mother Family Medical History: No Reported History, Hypertension (Mother at age of 79 she had a history of hypertension) Brother(s) Family Medical History: Coronary Artery Disease (CAD) (Brother at age 48 from massive myocardial infarction.) Additional Family Medical History / Comment(s): at age 48 massive mi Sister(s) Family Medical History: No Reported History (One sister no major medical problem.) Daughter(s) Family Medical History: No Reported History (2 daughter one of them at age of 32 from a drug overdose.) Medications and Allergies Home Medications Medication Instructions Recorded Confirmed Type Aspirin EC [Ecotrin Low Dose] 81 mg PO DAILY 09/20/14 03/06/17 History Tamsulosin HCl [Flomax] 0.4 mg PO DAILY 09/25/14 03/06/17 History [id number] 1 tab PO DAILY PRN 02/20/17 03/06/17 History [Excedrin] Cyanocobalamin [Vitamin B-12] 500 mcg PO DAILY 03/06/17 03/06/17 History Fluticasone Nasal [place] [Flonase 1 spray EA NOSTRIL DAILY 03/06/17 03/06/17 History Nasal [place]] Lisinopril [Zestril] 2.5 mg PO DAILY 03/06/17 03/06/17 History Allergies Allergy/AdvReac Type Severity Reaction Status Date / Time No Known Allergies Allergy Verified 03/06/17 17:08 Physical Exam Vitals: Vital Signs Temp Pulse Pulse Resp BP BP BP 03/07/17 14:55 98 F 86 16 127/83 03/07/17 07:00 98.4 F 89 16 119/61 03/07/17 00:45 97.9 F 03/06/17 22:50 104 H 16 127/88 03/06/17 21:37 89 18 120/76 03/06/17 20:10 97.6 F 89 22 153/79 03/06/17 19:15 78 16 142/70 Pulse Ox 03/07/17 14:55 96 03/07/17 07:00 92 L 03/07/17 00:45 03/06/17 22:50 96 03/06/17 21:37 96 03/06/17 20:10 97 03/06/17 19:15 97 Intake and Output 03/07/17 03/07/17 03/07/17 06:59 14:59 22:59 Intake Total 960 Output Total 150 150 Balance 810 -150 Intake: IV 960 Sodium Chloride 0.9% 1, 960 000 ml @ 120 mls/hr IV . Q8H20M [facility] Rx#:[id number] Output: Urine 150 150 Other: Voiding Method Urinal Urinal Urinal # Voids 2 - Constitutional General appearance: no acute distress - EENT Eyes: EOMI, PERRLA ENT: hearing grossly normal, normal oropharynx - Neck Neck: no lymphadenopathy Thyroid: bilateral: normal size - Respiratory Respiratory: bilateral: CTA - Cardiovascular Rhythm: regular Heart sounds: normal: S1, S2 - Gastrointestinal General gastrointestinal: normal bowel sounds, soft - Integumentary Integumentary: normal - Neurologic Neurologic: CNII-XII intact - Musculoskeletal Musculoskeletal: generalized weakness, strength equal bilaterally - Psychiatric Psychiatric: A&O x's 3, appropriate affect Results CBC & Chem 7: 03/07/17 07:40 03/07/17 07:40 Labs: Abnormal Lab Results - Last 24 Hours (Table) 03/06/17 03/07/17 03/07/17 Range/Units 17:53 01:30 07:05 WBC (3.8-10.6) k/uL Plt Count (150-450) k/uL Neutrophils # (1.3-7.7) k/uL BUN (9-20) mg/dL Glucose (74-99) mg/dL POC Glucose (mg/dL) 170 H 140 H (75-99) mg/dL Ur Specific [place] 1.050 H (1.001-1.035) Urine Protein Trace H (Negative) Ur Leukocyte Esterase Trace H (Negative) Urine WBC 6 H (0-5) /hpf Urine Bacteria Rare H (None) /hpf Hyaline Casts 7 H (0-2) /lpf Urine Mucus Occasional H (None) /hpf 03/07/17 03/07/17 03/07/17 Range/Units 07:40 07:40 12:02 WBC 11.8 H (3.8-10.6) k/uL Plt Count 528 H (150-450) k/uL Neutrophils # 10.0 H (1.3-7.7) k/uL BUN 26 H (9-20) mg/dL Glucose 133 H (74-99) mg/dL POC Glucose (mg/dL) 113 H (75-99) mg/dL Ur Specific [place] (1.001-1.035) Urine Protein (Negative) Ur Leukocyte Esterase (Negative) Urine WBC (0-5) /hpf Urine Bacteria (None) /hpf Hyaline Casts (0-2) /lpf Urine Mucus (None) /hpf 03/07/17 Range/Units 17:46 WBC (3.8-10.6) k/uL Plt Count (150-450) k/uL Neutrophils # (1.3-7.7) k/uL BUN (9-20) mg/dL Glucose (74-99) mg/dL POC Glucose (mg/dL) 109 H (75-99) mg/dL Ur Specific [place] (1.001-1.035) Urine Protein (Negative) Ur Leukocyte Esterase (Negative) Urine WBC (0-5) /hpf Urine Bacteria (None) /hpf Hyaline Casts (0-2) /lpf Urine Mucus (None) /hpf Chest x-ray: report reviewed Abdominal x-ray: report reviewed CT scan - abdomen: report reviewed CT scan - pelvis: report reviewed Assessment and Plan (1) Pelvic lymphadenopathy Narrative/Plan: The appearance is certainly suspicious for malignancy, though primary site is not known at this time. According to the patient's chart, there was a history of prostate cancer. The patient states that there was suspicion but no definite diagnosis. According to the patient's history it appears that a previously the patient had BPH or at most an early stage prostate cancer He has not had any urology follow-up for your more. Therefore progression of the prostate cancer during that time to metastatic disease is certainly possible. He has been seen by urology. I will order a PSA. If this is markedly elevated, then it would support the adenopathy being related to prostate cancer. The patient was also noted to have a dilated pancreatic duct without any definite mass seen. This could be due to underdiagnose chronic hepatitis, but malignancy is not ruled out. CA 19-9 will also be ordered. If this is elevated , and PSA normal to low, then pancreatic malignancy with lymph node metastasis would need to be considered. In either of these 2 situations, the patient was subsequently need a biopsy Status: Acute (2) Small bowel obstruction Narrative/Plan: Dr. Zhao's note was reviewed. The patient has had a prior history of bowel obstruction and underwent resection. At this time it appears that the obstruction is most likely related to adhesions, rather than the adenopathy. He is being managed conservatively. Defer to Dr. Zhao for further management. Status: Acute
--- NOTE | 2017-03-07 21:50 | CONS ---
DATE OF CONSULTATION: 03/07/2017 REASON FOR CONSULTATION: Pelvic adenopathy and possible prostate cancer. The patient is an 81-year-old male admitted through the emergency room on 03/06 for evaluation of intermittent nausea, vomiting and abdominal distention. The patient says this first began on February 12. He was seen in the emergency room on 02/20 due to abdominal pain and released later that day. A CT scan of the abdomen at that time showed bilateral adenopathy in the region of the internal iliac vessels. The patient says that his intermittent nausea and vomiting continued. A CT scan of the abdomen and pelvis yesterday showed changes consistent with a small-bowel obstruction. The patient was admitted and has had placement of an NG tube and says he feels much better. Repeat CT scan continued to show adenopathy in the right and left internal iliac region with a diameter of lymph nodes between 2.5 and 3 cm. There was evidence of an enlarged prostate. There was also evidence of a sclerotic lesion near the left iliac bone near the sacroiliac junction which was felt to be possible metastatic disease. Nonspecific dilation of the pancreatic duct was noted. No renal abnormalities were present. The patient is well known to me. He was seen by me initially in 12/2014 due to symptoms of bladder outflow obstruction and a PSA of 13. The PSA had been rising gradually over the previous several years from a level of 8 in 10/2011 to the 13 noted in 12/2014. The patient had a long history of bladder outflow obstruction and had been taking tamsulosin. I discussed the possibility that the elevated PSA could be from a slowly growing prostate cancer or prostatic enlargement, as the patient did have a symmetrically enlarged prostate. The patient elected not to proceed with biopsies and instead was started on finasteride. His PSA fell from a 13 in 12/2014 to 10 in 03/2015. 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 A CT urogram at that time showed no abnormalities of the upper urinary system and no pelvic adenopathy. The sclerotic lesion in the left iliac bone was present at that time and had also been present on a CT scan in09/2014. The patient did not return for followup cystoscopy until 04/2016, but at that time no cystoscopic abnormalities were noted. He said that he did not return for his scheduled appointment after that because of a combination of financial difficulties and an illness involving his . The patient has had no gross hematuria since 2014. He says he usually voids every 2 to 4 hours during the day and 2 or 3 times at night. He complains of occasional urgency, but does not have incontinence. Patient's past medical history is significant in regard to a small-bowel obstruction treated by Dr. Medina apparently with resection small-bowel in 09/2014. He has also undergone tonsillectomy and vasectomy. The patient says the only medications that he took on a regular basis were: 1. Tamsulosin and 2. Aspirin. REVIEW OF SYSTEMS: Significant mainly in regard to the above. The patient denies any bone pain. He says his abdominal pain is much better. He is passing flatus. SOCIAL HISTORY: The patient is a former smoker who smoked 2 packs per day for approximately 30 years before quitting this in 1974. Physical exam reveals a well-developed, 81-year-old male who is alert and oriented. Afebrile, blood pressure 127/83. HEENT: Nasogastric tube is in place and is draining green-brown material. No supraclavicular or cervical adenopathy. CHEST: Breathing is unlabored. ABDOMEN: Soft. No hepatosplenomegaly. No focal tenderness. GENITALIA: Both testicles are descended. No hernias noted. RECTAL: Not performed at this time. However, the patient's previous exam showed a prostate volume of over 50 mL which was symmetric in size and consistency. Additional laboratory evaluation on admission included a BUN of 18, creatinine 0.93. Calcium was 10.5. IMPRESSION: Pelvic adenopathy. This has occurred over the last 18 months. Patient does have a history of low-grade bladder cancer, but it would be unusual for this to be metastatic. He does have prostatic enlargement with an elevated PSA in the past and it is possible that the adenopathy could be from prostate cancer; however, other causes cannot be excluded. RECOMMENDATION: PSA will be obtained. If PSA has risen markedly from 2014, then this would support a diagnosis of prostate cancer; however, I believe that eventually biopsy of the pelvic nodes may be necessary for confirmation. It does not appear that the bone lesion is new, as this has been present as long as 09/2014 and does not appear changed. Thank you for allowing me to participate in the care of this gentleman. KAY
[2017-03-08] MEDS: HYDROmorphone 1 MG/ML 1 ML SYRINGE IVP PRN ×2 (00:10→14:55)
[2017-03-08 02:09] LABS: Glucose,Whole Blood 98 mg/dL (75-99)
[2017-03-08] MEDS: SODIUM CHLORIDE 0.9% 1,000 ML IV SCH ×4 (06:15→23:36)
[2017-03-08 06:22] LABS: Glucose,Whole Blood 83 mg/dL (75-99)
[2017-03-08] MEDS: PANTOPRAZOLE 40 MG/10 ML VIAL IV SCH (08:25)
[2017-03-08] MEDS: HEPARIN SODIUM,PORCINE 5,000 UNIT/ML 1 ML VIAL SQ SCH ×2 (08:25→21:17)
[2017-03-08] MEDS ORDERED: MELATONIN 5 MG TABLET PO PRN (11:01)
[2017-03-08] MEDS ORDERED: LORazepam 2 MG/ML SYRINGE IV PRN (11:01)
--- NOTE | 2017-03-08 11:15 | P.PN ---
Subjective Principal diagnosis: Ileus versus small bowel obstruction The patient is denying any pain today he did have bowel movement this morning which was formed. Objective - Vital Signs Vital signs: Vital Signs Temp 97.7 F 03/08/17 07:00 Pulse 69 03/08/17 07:00 Resp 16 03/08/17 07:00 BP 167/74 03/08/17 07:00 Pulse Ox 94 L 03/08/17 07:00 Intake & Output 03/07/17 03/08/17 03/08/17 18:59 06:59 18:59 Intake Total 2140 Output Total 150 750 Balance -150 1390 Intake: IV 960 Sodium Chloride 0.9% 1, 960 000 ml @ 120 mls/hr IV . Q8H20M [facility] Rx#:[id number] Oral 1180 Output: Gastric Drainage 250 Urine 150 500 Other: Voiding Method Urinal Urinal Urinal # Voids 1 - Constitutional General appearance: Present: cooperative, no acute distress - Respiratory Respiratory: bilateral: CTA - Cardiovascular Rhythm: regular - Gastrointestinal General gastrointestinal: Present: decreased bowel sounds, distended (Some distention with tympany to percussion), soft. Absent: tenderness - Labs CBC & Chem 7: 03/07/17 07:40 03/07/17 07:40 Labs: Abnormal Lab Results - Last 24 Hours (Table) 03/07/17 03/07/17 Range/Units 12:02 17:46 POC Glucose (mg/dL) 113 H 109 H (75-99) mg/dL Assessment and Plan (1) Pelvic lymphadenopathy Status: Acute (2) Small bowel obstruction Status: Acute (3) Abdominal pain Status: Acute Plan: This is likely a ileus or partial small bowel obstruction. We'll repeat his x- ray today. If it shows improvement we'll clamp the tube and start him on some clear liquid diet. Further recommendations to follow.
[2017-03-08 11:51] LABS: Anion Gap 8 mmol/L; Blood Urea Nitrogen 21 mg/dL (9-20); Calcium 9.4 mg/dL (8.4-10.2); Carbon Dioxide 30 mmol/L (22-30); Chloride 108 mmol/L (98-107); Glucose 92 mg/dL (74-99); Non-African American GFR(MDRD) >60 (>60 ml/min/1.73 sqM); Potassium 3.9 mmol/L (3.5-5.1); Sodium 146 mmol/L (137-145)
--- NOTE | 2017-03-08 12:00 | XR ---
EXAMINATION TYPE: XR abdomen 2V DATE OF EXAM: 03/08/2017 COMPARISON: 03/06/2017 HISTORY: Pain TECHNIQUE: Supine and upright views of the abdomen are submitted. FINDINGS: NG tube is noted within the stomach. Dilatation of a mid abdominal small bowel loop measuring up to 3.9 cm. Ring of sutures identified wit hin the right upper quadrant. A few scattered air-fluid levels demonstrated. Gas and fecal material is seen in non-distended colon. No convincing evidence for pneumoperitoneum. No unusual calcifications. The lung bases are clear. The osseous structures are intact. IMPRESSION: 1. Nonspecific bowel gas pattern.
--- NOTE | 2017-03-08 16:32 | PN ---
Patient had a bowel movement today and patient is still ( ) through the NG tube. Does have bowel sounds. Getting an abdominal x-ray. Patient wanted to leave AMA, but I am able to convince him to stay tonight. REVIEW OF SYSTEMS: CARDIOVASCULAR: No chest pain, no orthopnea, no PND, no palpitations. PULMONARY: Denied any shortness of breath. No cough or hemoptysis. GASTROINTESTINAL: Patient has discomfort secondary to the NG tube. NEUROLOGIC: No headaches, no weakness, no numbness. Medications are reviewed. PHYSICAL EXAMINATION: VITAL SIGNS: Temperature 97.7, pulse of 69, respiratory rate of 16, blood pressure is 161/74, saturating at 94% on room air. GASTROINTESTINAL: Patient has an NG tube in place. Abdomen is still distended and tympanic a little bit, but better than yesterday. NG tube in place, still draining. GENERAL: The patient is alert and oriented x3, not in any acute distress. Well developed, well nourished. HEENT: Pupils are round and equally reacting to light. EOMI. No scleral icterus. No conjunctival pallor. Normocephalic, atraumatic. No pharyngeal erythema. No thyromegaly. CARDIOVASCULAR: S1 and S2 present. No murmurs, rubs, or gallops. PULMONARY: Chest is clear to auscultation, no wheezing or crackles. MUSCULOSKELETAL: No joint swelling or deformity. EXTREMITIES: No cyanosis, clubbing, or pedal edema. NEUROLOGICAL: Gross neurological examination did not reveal any focal deficits. SKIN: No rashes. LABORATORY DATA: None available from today. ASSESSMENT AND PLAN: 1. Partial small bowel obstruction, conservative measures IV fluids and NG tube. Surgery is following the patient. 2. Chronic obstructive pulmonary disease without any acute exacerbation. 3. Prostate cancer, metastatic disease. Urology and Oncology are following the patient. 4. Hypertension. Hold off lisinopril at this point of time. 5. Tachycardia improved at this point of time secondary to intravascular volume depletion. 6. Acute renal failure secondary to intravascular volume depletion, prerenal azotemia. Continue with IV fluids, leukocytosis, reactive response. Repeat electrolytes and CBC tomorrow.
[2017-03-08 20:20] LABS: Glucose,Whole Blood 97 mg/dL (75-99)
[2017-03-09] MEDS: SODIUM CHLORIDE 0.9% 1,000 ML IV SCH ×2 (06:14→11:20)
[2017-03-09 07:16] LABS: Glucose,Whole Blood 88 mg/dL (75-99)
[2017-03-09 07:25] LABS: CH 27.7; CHCM 34.1; HDW 3.62; HGB 12.4 gm/dL (13.0-17.5); MCH 27.4 pg (25.0-35.0); MCHC 33.7 g/dL (31.0-37.0); MCV 81.4 fL (80.0-100.0); Mean Platelet Volume 6.7; Poikilocytosis Slight; RBC 4.54 m/uL (4.30-5.90); RDW 13.2 % (11.5-15.5); WBC 6.6 k/uL (3.8-10.6)
[2017-03-09 07:36] LABS: Anion Gap 6 mmol/L; Blood Urea Nitrogen 17 mg/dL (9-20); Calcium 9.1 mg/dL (8.4-10.2); Carbon Dioxide 29 mmol/L (22-30); Chloride 107 mmol/L (98-107); Glucose 81 mg/dL (74-99); Non-African American GFR(MDRD) >60 (>60 ml/min/1.73 sqM); Potassium 3.9 mmol/L (3.5-5.1); Sodium 142 mmol/L (137-145)
[2017-03-09 07:56] VITALS: BP 130/70; PULSE 62; TEMP 97.7
--- NOTE | 2017-03-09 10:24 | P.PN ---
Subjective The patient's NG tube was removed yesterday. He was started on a clear liquid diet. He is tolerating and that without problems. He is stooling. Anxious to go home. Objective - Vital Signs Vital signs: Vital Signs Temp 97.7 F 03/09/17 07:00 Pulse 62 03/09/17 07:00 Resp 16 03/09/17 07:00 BP 130/70 03/09/17 07:00 Pulse Ox 97 03/09/17 07:00 Intake & Output 03/08/17 03/09/17 03/09/17 18:59 06:59 18:59 Intake Total 960 1460 Output Total 500 400 400 Balance 460 1060 -400 Weight 79.379 kg Intake: IV 960 480 Sodium Chloride 0.9% 1, 960 480 000 ml @ 120 mls/hr IV . Q8H20M [facility] Rx#:[id number] Oral 980 Output: Gastric Drainage 500 Urine 400 400 Other: Voiding Method Urinal Toilet Toilet Urinal Urinal # Voids 2 2 # Bowel Movements 2 2 - Constitutional General appearance: Present: cooperative, no acute distress - Gastrointestinal General gastrointestinal: Present: normal bowel sounds, soft. Absent: tenderness - Labs CBC & Chem 7: 03/09/17 06:56 03/09/17 06:56 Labs: Abnormal Lab Results - Last 24 Hours (Table) 03/08/17 03/09/17 Range/Units 11:05 06:56 Hgb 12.4 L (13.0-17.5) gm/dL Hct 37.0 L (39.0-53.0) % Sodium 146 H (137-145) mmol/L Chloride 108 H (98-107) mmol/L BUN 21 H (9-20) mg/dL Assessment and Plan (1) Pelvic lymphadenopathy Status: Acute (2) Small bowel obstruction Status: Resolved (3) Abdominal pain Status: Acute Plan: We will advance his diet. If he is able to tolerate that, from a surgical standpoint he could be discharged later this afternoon. Outpatient workup for his prostate abnormality and lymphadenopathy
[2017-03-09] MEDS: PANTOPRAZOLE 40 MG/10 ML VIAL IV SCH (11:19)
[2017-03-09] MEDS: HEPARIN SODIUM,PORCINE 5,000 UNIT/ML 1 ML VIAL SQ SCH (11:19)
[2017-03-09 11:56] LABS: Glucose,Whole Blood 99 mg/dL (75-99)
--- NOTE | 2017-03-10 08:55 | DS ---
DATE OF ADMISSION: 03/06/2017 DATE OF DISCHARGE: 03/09/2017 Patient is admitted for small bowel obstruction and patient has prostate cancer with possible metastatic disease. Patient is otherwise clinically doing well. Patient will follow with Dr. Candy Kruse as an outpatient, Dr. Gill as an outpatient and patient moved his bowels. We are advancing the diet. This afternoon is able to tolerate this, patient will be discharged. Patient does have good bowel sounds at this point of time. Patient was seen and examined on the day of discharge. Vitals are stable. PHYSICAL EXAMINATION: GENERAL: The patient is alert and oriented x3, not in any acute distress. Well developed, well nourished. HEENT: Pupils are round and equally reacting to light. EOMI. No scleral icterus. No conjunctival pallor. Normocephalic, atraumatic. No pharyngeal erythema. No thyromegaly. CARDIOVASCULAR: S1 and S2 present. No murmurs, rubs, or gallops. PULMONARY: Chest is clear to auscultation, no wheezing or crackles. ABDOMEN: Soft, nontender, nondistended, normoactive bowel sounds. No palpable organomegaly. MUSCULOSKELETAL: No joint swelling or deformity. EXTREMITIES: No cyanosis, clubbing, or pedal edema. NEUROLOGICAL: Gross neurological examination did not reveal any focal deficits. SKIN: No rashes. FINAL DIAGNOSES: 1. Partial small bowel obstruction. 2. Prostate cancer probably metastatic disease. Patient will follow with Oncology as an outpatient. 3. Hypertension. Lisinopril can be restarted. 4. Acute renal failure secondary to intravascular volume depletion. The prerenal azotemia is resolved at this point of time. Patient will be discharged today. DISCHARGE DIET: Cardiac. Activity as tolerated. Follow with Dr. Candy Kruse in about 3 to 7 days. Spent greater than 35minutes in total discharge process.
== END 2017-03-09 15:18 | disposition home or self-care (01) | DRG 389 ==
LOC: EC 14:48 → 5ONC 21:18
PROVIDERS: ADMIT Hospitalist; ATTEND Hospitalist
DX: K56.5 Intestinal adhesions [bands] with obstruction (postinfection) (principal); N17.9 Acute kidney failure, unspecified; C79.9 Secondary malignant neoplasm of unspecified site; J44.9 Chronic obstructive pulmonary disease, unspecified; E86.0 Dehydration; K86.89 Other specified diseases of pancreas; C61 Malignant neoplasm of prostate; I10 Essential (primary) hypertension; N40.0 Benign prostatic hyperplasia without lower urinary tract symptoms; N32.0 Bladder-neck obstruction; M19.90 Unspecified osteoarthritis, unspecified site; M81.0 Age-related osteoporosis without current pathological fracture; Z85.51 Personal history of malignant neoplasm of bladder; Z87.891 Personal history of nicotine dependence; Z79.82 Long term (current) use of aspirin; Z79.899 Other long term (current) drug therapy; Z82.49 Family history of ischemic heart disease and other diseases of the circulatory system
CPT/HCPCS: 36415; 71020; 74000; 74020; 74177; 80048; 80053; 81001; 82150; 83605; 83690; 83735; 84153; 84484; 85025; 85027; 85610; 85730; 86301; 93005; 96361; 96374; 96375; 96376; 99285

== ENCOUNTER → 2017-03-26 | Outpatient (CLI) | payer MEDICARE, BC ==
--- NOTE | 2017-03-26 13:33 | FL ---
EXAMINATION TYPE: FL UGI air w small bowel DATE OF EXAM: 03/26/2017 COMPARISON: CT abdomen and pelvis March 06, 2017 HISTORY: Abdominal and pelvic pain. Left-sided pain and constipation. History of prior small bowel archer rgery and prostate cancer. History of recent admission for partial small bowel obstruction. TECHNIQUE: A double contrast UGI study is performed with small bowel follow through. A total of 60 s econds of fluoroscopic time was utilized during procedure. FINDINGS: Batch Unloader image of the abdomen shows no gross abnormality. The esophagus shows normal motility and emptying into the stomach. A small sliding type hiatal hernia is present. The stomach shows normal distensibility, peristalsis, and mucosal folds. No evidence of any mass or ulcer disease. A few episodes of gastroesophageal reflux were seen during real-time performance of st udy. The duodenal bulb and sweep are unremarkable. The small bowel study shows normal transit to the colon in less than 120 minutes. There is normal mu cosal fold pattern throughout the small bowel. There is no evidence of any stricture or filling defe ct noted. Site of small bowel sutures right midabdomen is less well seen on fluoroscopy versus recent CT. The terminal ileum is difficult to distinctly visualize due to densely opacified overlying dista l small bowel loops. IMPRESSION: No obstruction currently. Small sliding-type hiatal hernia with occasional gastroesophag eal reflux noted.
--- NOTE | 2017-03-26 15:59 | NM ---
EXAMINATION TYPE: NM bone scan whole body DATE OF EXAM: 03/26/2017 COMPARISON: CT abdomen pelvis 03/06/2017 HISTORY: Prostate carcinoma, C 61 Delayed whole-body scanning was performed following the injection of 26.5 mCi Tc 99m MDP. Images acq uired 3 hours post injection. FINDINGS: There is uptake within the shoulders, sternoclavicular joints, findings are felt likely to be degener ative. Soft tissue uptake is normal. There is a mild spinal curvature. No abnormal increased uptake s een within the left ilium to suggest metastatic disease. IMPRESSION: Metastatic disease is not evident. Findings in the left ilium likely represent bone island.
== END | disposition home or self-care (01) ==
LOC: RADFLMAIN 10:04
PROVIDERS: ATTEND Internal Medicine Hematology & Oncology
DX: C61 Malignant neoplasm of prostate (principal); K44.9 Diaphragmatic hernia without obstruction or gangrene; K21.9 Gastro-esophageal reflux disease without esophagitis
CPT/HCPCS: 74249; 78306; A9503

== ENCOUNTER → 2017-03-29 | Outpatient (CLI) | payer MEDICARE, BC | LOC: RADMRIMAIN 09:02 | PROVIDERS: ATTEND Internal Medicine Hematology & Oncology | DX: Z53.9 Procedure and treatment not carried out, unspecified reason (principal) ==

== ENCOUNTER → 2017-04-04 | Outpatient (CLI) | payer MEDICARE, BC ==
--- NOTE | 2017-04-04 11:28 | MR ---
MRCP HISTORY: Pancreatitis Multiplanar multisequence imaging obtained through the abdomen. Three-dimensional reconstructions per formed through the biliary system Correlation to CT abdomen pelvis 03/06/2017 The central portion of the pancreatic duct is dilated measuring approximately 7 to 8 mm and tapers di stally. Soft tissue signal present at the level of the junction of the pancreatic duct and duodenum s how some questionable low signal on T2-weighted and possibly T1 weighted sequences. Cannot exclude an ampullary mass. Some small cystic foci are again noted within the left lobe of the liver. The spleen is borderline enlarged. No filling defect evident within the biliary system to suggest stone disease. Gallbladder shows no ab normal luminal signal. The kidneys, adrenal glands, pancreas are otherwise within normal limits. There is no evident ascites . IMPRESSION: Dilated distal pancreatic duct as described, consider endoscopy to exclude ampullary mass . Splenomegaly is borderline.
== END | disposition home or self-care (01) ==
LOC: RADMRIMAIN 08:56
PROVIDERS: ATTEND Internal Medicine Hematology & Oncology
DX: K86.89 Other specified diseases of pancreas (principal); R16.1 Splenomegaly, not elsewhere classified
CPT/HCPCS: 74181

== ENCOUNTER 2017-05-07 10:01 | Day surgery (SDC) | payer MEDICARE, BC ==
[2017-04-24 08:28] VITALS: BMI 25.8
[~2017-05-07 10:01] MED LIST: LACTATED RINGERS 1,000 ML IV SCH; LIDOCAINE 1% 20 ML VIAL (10MG/ML) FOR IV START INTRADERMA PRN
[2017-05-07] MEDS: LACTATED RINGERS 1,000 ML IV SCH ×2 (10:29→11:10)
[2017-05-07 10:33] VITALS: TEMP 97.8
[2017-05-07] MEDS ORDERED: PROPOFOL 10 MG/ML 20 ML VIAL IV ONE (11:15)
--- NOTE | 2017-05-07 11:29 | P.PCN ---
Date of Procedure: 05/07/17 Preoperative Diagnosis: Postoperative Diagnosis: Procedure(s) Performed: BRIEF HISTORY: Patient is a 82-year-old, pleasant, white male, scheduled for an upper endoscopy as a part of evaluation of intermittent dysphagia to solids and also abnormal MRCP that was done recently for evaluation of acute pancreatitis which showed a dilated pancreatic duct and possibly to ampullary mass could not be excluded. His and scheduled for an upper endoscopy for direct visualization. PROCEDURE PERFORMED: Esophagogastroduodenoscopy and biopsy. PREOPERATIVE DIAGNOSIS: Intermittent dysphagia to solids, abnormal MRCP rule out ampullary mass. IV sedation per anesthesia. PROCEDURE: After informed consent was obtained, the patient was brought into the endoscopy unit. IV sedation was administered by Anesthesia under continuous monitoring. Initially the Olympus GIF-140 video endoscope was inserted into the mouth. Esophagus intubated without any difficulty. It was gradually advanced into the stomach and duodenum and carefully examined. The bulb and the second part of the duodenum appeared normal. No ampullary mass identified. The scope at this time was withdrawn to the stomach, adequately insufflated with air, and upon careful examination, mucosa of the antrum, body, had diffuse gastritis and biopsies were done from this area. The cardia and the fundus appeared normal. The scope was then withdrawn into the esophagus. Moderate size hiatal hernia noted. The GE junction was located at 36 cm from the incisors. There was long segment of Waite's esophagus extended from 34-36 cm from the incisors and multiple biopsies were done from this area. The stomach esophagus appeared normal. There were no erosions or ulcerations seen and the patient tolerated the procedure well. IMPRESSION: 1. Long segment Waite's esophagus 2. Moderate hiatal hernia. 3. Diffuse antral gastritis 4. No evidence of any ampullary mass RECOMMENDATIONS: The findings of this examination were discussed with the patient was well as her family. He was advised to follow with the biopsy results. If the biopsy confirms the presence of Waite's esophagus, he can have a repeat upper endoscopy in 2 years. Implants: Indications for Procedure: Operative Findings: Description of Procedure:
[2017-05-07 11:33] VITALS: RESP 16
[2017-05-07 11:56] VITALS: BP 144/86; PULSE 61
== END 2017-05-07 12:24 | disposition home or self-care (01) ==
LOC: ORWHC2ENDO 10:01
PROVIDERS: ATTEND Internal Medicine Gastroenterology
DX: K29.50 Unspecified chronic gastritis without bleeding (principal); R13.10 Dysphagia, unspecified; K22.70 Barrett's esophagus without dysplasia; K44.9 Diaphragmatic hernia without obstruction or gangrene; I10 Essential (primary) hypertension; N40.0 Benign prostatic hyperplasia without lower urinary tract symptoms; K86.89 Other specified diseases of pancreas; Z79.82 Long term (current) use of aspirin; Z79.899 Other long term (current) drug therapy
CPT/HCPCS: 88305; 88342; 43239; J2704

== ENCOUNTER 2018-04-07 09:38 | Emergency (ER) | payer BC, MEDICARE ==
[2018-04-07 09:57] VITALS: BP 166/92; PULSE 102; RESP 18; TEMP 98
--- NOTE | 2018-04-07 10:18 | ED ---
General Adult HPI - General Chief complaint: Extremity Problem,Nontraumatic Stated complaint: Left leg swelling Time Seen by Provider: 04/07/18 10:00 Source: patient, RN notes reviewed Mode of arrival: ambulatory Limitations: no limitations - History of Present Illness Initial comments: Patient 82-year-old male presented to the emergency room today with chief complaint of scrotal swelling and left leg swelling over the last 2 days. Patient states first noticed the swelling 2 days ago. He states his leg feels tight with movements of bending. Also admits that his noticed some swelling into the scrotum and penile shaft. Patient states she's had a little bit of a difficult time urinating. He denies any other complaints. States he's never had similar symptoms in the past. Denies any history of blood clot. Denies any injury or trauma to these areas. Patient denies any recent fever, chills, shortness of breath, chest pain, back pain, abdominal pain, nausea or vomiting, numbness or tingling, headaches or visual changes, or any other complaints. - Related Data Home Medications Medication Instructions Recorded Confirmed Aspirin EC [Ecotrin Low Dose] 81 mg PO DAILY 09/20/14 04/07/18 Tamsulosin HCl [Flomax] 0.4 mg PO DAILY 09/25/14 04/07/18 Multivitamins, Thera [Multivitamin 1 tab PO DAILY 04/07/18 04/07/18 (formulary)] Allergies Allergy/AdvReac Type Severity Reaction Status Date / Time No Known Allergies Allergy Verified 04/07/18 10:23 Review of Systems ROS Statement: Those systems with pertinent positive or pertinent negative responses have been documented in the HPI. ROS Other: All systems not noted in ROS Statement are negative. Past Medical History Past Medical History: GI Bleed, Hearing Disorder / Deafness, Liver Disease, Osteoarthritis (OA), Prostate Disorder Additional Past Medical History / Comment(s): PUD/bleeding ulcer/BPH History of Any Multi-Drug Resistant Organisms: None Reported Past Surgical History: Bowel Resection Additional Past Surgical History / Comment(s): upper endoscopy, colonoscopy, BOWEL RESECTION Past Anesthesia/Blood Transfusion Reactions: No Reported Reaction Past Psychological History: No Psychological Hx Reported Smoking Status: Light tobacco smoker Past Alcohol Use History: Rare Past Drug Use History: None Reported - Past Family History Father Family Medical History: No Reported History, COPD, Vascular Disorder Additional Family Medical History / Comment(s): age 59 cerebral anuerysm Mother Family Medical History: No Reported History Brother(s) Family Medical History: Coronary Artery Disease (CAD) Additional Family Medical History / Comment(s): at age 48 massive mi Sister(s) Family Medical History: No Reported History Daughter(s) Family Medical History: No Reported History General Exam - General Exam Comments Initial Comments: General: The patient is awake and alert, in no distress, and does not appear acutely ill. Eye: Pupils are equal, round and reactive to light, extra-ocular movements are intact. No nystagmus. There is normal conjunctiva bilaterally. No signs of icterus. Ears, nose, mouth and throat: There are moist mucous membranes and no oral lesions. Neck: The neck is supple, there is no tenderness or JVD. Cardiovascular: There is a regular rate and rhythm. No murmur, rub or gallop is appreciated. Respiratory: Lungs are clear to auscultation, respirations are non-labored, breath sounds are equal. No wheezes, stridor, rales, or rhonchi. Gastrointestinal: Soft, non-distended, non-tender abdomen without masses or organomegaly noted. There is no rebound or guarding present. No CVA tenderness. Musculoskeletal: Normal ROM, no tenderness. Strength 5/5. Sensation intact. Pedal Pulses equal bilaterally 2+. Neurological: A&O x 3. CN II-XII intact, There are no obvious motor or sensory deficits. Coordination appears grossly intact. Speech is normal. Skin: Skin is warm and dry and no rashes or lesions are noted. Psychiatric: Cooperative, appropriate mood & affect, normal judgment. : Circumcised male with edema around the penile shaft. Able to retract foreskin. Patient does have edema down to the scrotum no specific tenderness on palpation. Limitations: no limitations Course Vital Signs 04/07/18 09:52 Temperature 98 F Pulse Rate 102 H Respiratory 18 Rate Blood Pressure 166/92 O2 Sat by Pulse 98 Oximetry Medical Decision Making - Medical Decision Making Patient's CT the abdomen and pelvis reviewed shows 1. Progression of metastatic disease. Extensive abdominal, pelvic, and superficial inguinal adenopathy with the largest lymph node now measuring 7.72.5 cm and previously measuring 3.82.4 cm. Numerous nose are centrally necrotic. 2. Diffuse inflammatory change within the pelvis. Etiologies could include urinary tract infection, colitis, or mesenteric edema as there is now scant pelvic ascites and pelvic anterior anasarca with scrotal wall edema. 3. New right sided mild hydronephrosis likely secondary to urinary bladder wall thickening. Diffusely enlarged prostate gland and the patient's known history of prostate cancer is suspected to invade within the posterior urinary bladder wall creating no wall thickening and obstructive hydronephrosis as read by radiologist . Patient's labs reviewed and are unremarkable. No sign of infection. These results were discussed in detail with the patient. Was discussed with patient recommendation for admission for further evaluation. He has declined. He states he would like to follow all patient. He states he does not want stay in the hospital. Patient is advised to follow-up with urology and family physician. - Lab Data Result diagrams: 04/07/18 11:11 04/07/18 11:11 Lab Results 04/07/18 04/07/18 04/07/18 Range/Units 11:11 11:11 11:11 WBC 7.2 (3.8-10.6) k/uL RBC 5.53 (4.30-5.90) m/uL Hgb 15.2 (13.0-17.5) gm/dL Hct 44.4 (39.0-53.0) % MCV 80.2 (80.0-100.0) fL MCH 27.5 (25.0-35.0) pg MCHC 34.3 (31.0-37.0) g/dL RDW 14.2 (11.5-15.5) % Plt Count 268 (150-450) k/uL Neutrophils % 70 % Lymphocytes % 20 % Monocytes % 5 % Eosinophils % 2 % Basophils % 1 % Neutrophils # 5.0 (1.3-7.7) k/uL Lymphocytes # 1.5 (1.0-4.8) k/uL Monocytes # 0.4 (0-1.0) k/uL Eosinophils # 0.1 (0-0.7) k/uL Basophils # 0.1 (0-0.2) k/uL PT (9.0-12.0) sec INR (<1.2) APTT (22.0-30.0) sec Sodium 140 (137-145) mmol/L Potassium 4.4 (3.5-5.1) mmol/L Chloride 104 (98-107) mmol/L Carbon Dioxide 24 (22-30) mmol/L Anion Gap 12 mmol/L BUN 11 (9-20) mg/dL Creatinine 0.95 (0.66-1.25) mg/dL Est GFR (CKD-EPI)AfAm 85 (>60 ml/min/1.73 sqM) Est GFR (CKD-EPI)NonAf 74 (>60 ml/min/1.73 sqM) Glucose 91 (74-99) mg/dL Calcium 9.4 (8.4-10.2) mg/dL Total Bilirubin 0.6 (0.2-1.3) mg/dL AST 19 (17-59) U/L ALT 21 (21-72) U/L Alkaline Phosphatase 59 (38-126) U/L NT-Pro-B Natriuret Pep 116 pg/mL Total Protein 7.1 (6.3-8.2) g/dL Albumin 3.9 (3.5-5.0) g/dL Urine Color Urine Appearance (Clear) Urine pH (5.0-8.0) Ur Specific [place] (1.001-1.035) Urine Protein (Negative) Urine Glucose (UA) (Negative) Urine Ketones (Negative) Urine Blood (Negative) Urine Nitrite (Negative) Urine Bilirubin (Negative) Urine Urobilinogen (<2.0) mg/dL Ur Leukocyte Esterase (Negative) Urine RBC (0-5) /hpf Urine WBC (0-5) /hpf Ur Squamous Epith Cells (0-4) /hpf 04/07/18 04/07/18 Range/Units 11:11 11:11 WBC (3.8-10.6) k/uL RBC (4.30-5.90) m/uL Hgb (13.0-17.5) gm/dL Hct (39.0-53.0) % MCV (80.0-100.0) fL MCH (25.0-35.0) pg MCHC (31.0-37.0) g/dL RDW (11.5-15.5) % Plt Count (150-450) k/uL Neutrophils % % Lymphocytes % % Monocytes % % Eosinophils % % Basophils % % Neutrophils # (1.3-7.7) k/uL Lymphocytes # (1.0-4.8) k/uL Monocytes # (0-1.0) k/uL Eosinophils # (0-0.7) k/uL Basophils # (0-0.2) k/uL PT 9.8 (9.0-12.0) sec INR 1.0 (<1.2) APTT 24.7 (22.0-30.0) sec Sodium (137-145) mmol/L Potassium (3.5-5.1) mmol/L Chloride (98-107) mmol/L Carbon Dioxide (22-30) mmol/L Anion Gap mmol/L BUN (9-20) mg/dL Creatinine (0.66-1.25) mg/dL Est GFR (CKD-EPI)AfAm (>60 ml/min/1.73 sqM) Est GFR (CKD-EPI)NonAf (>60 ml/min/1.73 sqM) Glucose (74-99) mg/dL Calcium (8.4-10.2) mg/dL Total Bilirubin (0.2-1.3) mg/dL AST (17-59) U/L ALT (21-72) U/L Alkaline Phosphatase (38-126) U/L NT-Pro-B Natriuret Pep pg/mL Total Protein (6.3-8.2) g/dL Albumin (3.5-5.0) g/dL Urine Color Yellow Urine Appearance Clear (Clear) Urine pH 5.5 (5.0-8.0) Ur Specific [place] 1.012 (1.001-1.035) Urine Protein Negative (Negative) Urine Glucose (UA) Negative (Negative) Urine Ketones Negative (Negative) Urine Blood Negative (Negative) Urine Nitrite Negative (Negative) Urine Bilirubin Negative (Negative) Urine Urobilinogen <2.0 (<2.0) mg/dL Ur Leukocyte Esterase Trace H (Negative) Urine RBC <1 (0-5) /hpf Urine WBC 3 (0-5) /hpf Ur Squamous Epith Cells <1 (0-4) /hpf Disposition Clinical Impression: Prostate cancer Disposition: HOME SELF-CARE Condition: Good Instructions: Edema (ED) Additional Instructions: Please follow-up with urologist and family physician over the next 2 days. Return here to the emergency room if any symptoms increase or worsen or for any other concerns. Is patient prescribed a controlled substance at d/c from ED?: No Referrals: Candy Kruse DO [Primary Care Provider] - 1-2 days Nahun Miles MD [STAFF PHYSICIAN] - 1-2 days Time of Disposition: 15:19
[2018-04-07 11:39] LABS: Basophils # (A) 0.1 k/uL (0-0.2); Basophils % (A) 1 %; Eosinophils # (A) 0.1 k/uL (0-0.7); Eosinophils % (A) 2 %; HCT 44.4 % (39.0-53.0); HGB 15.2 gm/dL (13.0-17.5); Lymphocytes # (A) 1.5 k/uL (1.0-4.8); Lymphocytes % (A) 20 %; MCH 27.5 pg (25.0-35.0); MCHC 34.3 g/dL (31.0-37.0); MCV 80.2 fL (80.0-100.0); Mean Platelet Volume 6.4; Monocytes # (A) 0.4 k/uL (0-1.0); Monocytes % (A) 5 %; Neutrophils % (A) 70 %; Platelet Count 268 k/uL (150-450); RBC 5.53 m/uL (4.30-5.90); RDW 14.2 % (11.5-15.5); WBC 7.2 k/uL (3.8-10.6)
[2018-04-07 11:43] LABS: Partial Thromboplastin Time 24.7 sec (22.0-30.0); Prothrombin Time 9.8 sec (9.0-12.0)
[2018-04-07 11:50] LABS: Albumin 3.9 g/dL (3.5-5.0); Calcium 9.4 mg/dL (8.4-10.2); Potassium 4.4 mmol/L (3.5-5.1); Total Bilirubin 0.6 mg/dL (0.2-1.3); Total Protein 7.1 g/dL (6.3-8.2)
[2018-04-07 11:56] LABS: Appearance,Urine Clear (Clear); Bilirubin,Urine Negative (Negative); Blood,Urine Negative (Negative); Color,Urine Yellow; Glucose,Urine (UA) Negative (Negative); Ketones,Urine Negative (Negative); Leukocyte Esterase,Urine Trace (Negative); Nitrite,Urine Negative (Negative); PH, Urine 5.5 (5.0-8.0); Protein,Urine Negative (Negative); RBC,Urine <1 /hpf (0-5); Specific Gravity,Urine 1.012 (1.001-1.035); Squamous Epithelial Cell,Urine <1 /hpf (0-4); Urobilinogen,Urine <2.0 mg/dL (<2.0); WBC,Urine 3 /hpf (0-5)
--- NOTE | 2018-04-07 12:06 | US ---
EXAMINATION TYPE: US venous doppler duplex LE LT DATE OF EXAM: 04/07/2018 11:48 AM COMPARISON: NONE CLINICAL HISTORY: Pain. Swelling SIDE PERFORMED: Left TECHNIQUE: The lower extremity deep venous system is examined utilizing real time linear array sonog natasha with graded compression, doppler sonography and color-flow sonography. VESSELS IMAGED: External Iliac Vein (EIV) Common Femoral Vein Deep Femoral Vein Greater Saphenous Vein * Femoral Vein Popliteal Vein Small Saphenous Vein * Proximal Calf Veins (* superficial vessels) Left Leg: Negative for DVT Within the left groin, there are multiple enlarged probable lymph nodes, largest measuring 3.8 x 1.5 x 2.9 cm IMPRESSION: No sonographic evidence of deep venous arthrosis within the left lower extremity. Multipl e enlarged left inguinal lymph nodes are again seen as seen on the prior CT abdomen pelvis dated 2016 and are again concerning for metastasis.
--- NOTE | 2018-04-07 12:19 | US ---
EXAMINATION TYPE: US scrotum with doppler. Grayscale and color Doppler Duplex imaging performed of t he scrotum. DATE OF EXAM: 04/07/2018 COMPARISON: NONE CLINICAL HISTORY: Pain. Swelling left testicle EXAM MEASUREMENTS: TESTICLES: Right Testicle: 4.2 x 1.6 x 2.3 cm Left Testicle: 3.7 x 1.3 x 2.8 cm EPIDIDYMIS HEAD: Right Epididymis: 1.0 cm Left Epididymis: 1.1 cm Doppler performed to assess for testicular vascularity; good bilateral color flow and waveforms are s een. There is no evidence of testicular torsion. Presence of varicoceles: No Heterogeneous testicles bilaterally. Epididymal cyst visualized right side measuring 0.4 cm. Epididym al cyst visualized left side measuring 0.4 cm. Two intratesticular cysts visualized within the left t esticle, largest measuring 1.4 x 1.0 x 1.3 cm Small left-sided hydrocele present. IMPRESSION: Scrotal edema. Testicular torsion is not evident. Intratesticular cystic foci on the left are indeterminate.
--- NOTE | 2018-04-07 14:56 | CT ---
EXAMINATION TYPE: CT abdomen pelvis w con DATE OF EXAM: 04/07/2018 COMPARISON: 03/06/2017 HISTORY: Left leg swelling and abdominal pain. CT DLP: 984 mGycm Automated exposure control for dose reduction was used. TECHNIQUE: Helical acquisition of images was performed from the lung bases through the pelvis. CONTRAST: Performed without Oral Contrast and with IV Contrast, patient injected with 100 mL of Isovue 300. FINDINGS: LUNG BASES: No significant abnormality is appreciated. There is a small hiatal hernia. LIVER/GB: Gallbladder is elongated. Multiple subcentimeter hypoattenuated hepatic lesions are again s een as seen on the prior of 03/06/2017. These are again too small to accurately characterize. PANCREAS: Degree of main pancreatic duct dilatation is similar to the prior predominantly within the pancreatic head. No radiographic sequela of chronic pancreatitis is seen. No side branch dilatation. No peripancreatic fat stranding. No discrete pancreatic masses identified. SPLEEN: No significant abnormality is seen. ADRENALS: No significant abnormality is seen. KIDNEYS: There is new right-sided hydronephrosis, mild in degree as well as ureteral dilatation witho ut radiopaque obstructing calculus. There is urinary bladder wall thickening that may account for the hydronephrosis. The kidneys enhance symmetrically. No left-sided hydronephrosis is seen. FREE AIR: No free air is visualized. ADENOPATHY: Again there is pelvic and retroperitoneal adenopathy that has progressed in the interim. The largest right iliac/pelvic sidewall lymph node on series 5 image 75 measures 7.7 x 2.5 cm and pr eviously measured approximately 3.8 x 2.4 cm. Centrally necrotic markedly enlarged adenopathy is also seen within the bilateral superficial inguinal regions, external iliac chain, common iliac chains, i nternal iliac chains, periaortic region, extending to the aortocaval region near the right adrenal gl and such as on series 5 image 20 measuring 1.2 cm in short axis. Numerous enlarged mesenteric lymph n odes are also seen. REPRODUCTIVE ORGANS: Prostate gland is diffusely enlarged and heterogenous with numerous calcificatio ns. Urinary bladder wall thickening may relate to pelvic outlet obstruction or infection. OSSEOUS STRUCTURES: No new significant abnormality is seen. Again there is a probable bone island wi thin the left iliac wing as this is not avid on nuclear medicine bone scan of 03/26/2017. BOWEL: Inflammatory fat stranding localized within the pelvis could additionally relate to component of colitis with multiple enlarged pericolonic lymph nodes posterior left lateral to the sigmoid colo n with numerous sigmoid diverticula such as on series 5 image 62. Alternatively mesenteric congestion is favored. No dilated bowel. OTHER: New anasarca, scrotal edema, mesenteric congestion, and small amount of abdominal free fluid a re seen within the pelvis. Extensive atherosclerosis is seen of the abdominal aorta and its branches. IMPRESSION: 1. PROGRESSION OF METASTATIC DISEASE. EXTENSIVE ABDOMINAL, PELVIC, AND SUPERFICIAL INGUINAL ADENOPATH Y WITH THE LARGEST LYMPH NODE NOW MEASURING 7. 7 X 2.5 CM AND PREVIOUSLY MEASURING 3. 8 X 2.4 CM. NUM EROUS LYMPH NODES ARE CENTRALLY NECROTIC. 2. DIFFUSE INFLAMMATORY CHANGE WITHIN THE PELVIS. ETIOLOGIES COULD INCLUDE URINARY TRACT INFECTION, C OLITIS, OR MESENTERIC EDEMA THERE IS NOW SCANT PELVIC ASCITES AND PELVIC ANTERIOR ANASARCA WITH SC ROTAL WALL EDEMA. 3. NEW RIGHT-SIDED MILD HYDRONEPHROSIS LIKELY SECONDARY TO THE URINARY BLADDER WALL THICKENING. DIFFU SELY ENLARGED PROSTATE GLAND IN THE PATIENT'S KNOWN HISTORY OF PROSTATE CANCER IS SUSPECTED TO INVADE WITHIN THE POSTERIOR URINARY BLADDER WALL CREATING A WALL THICKENING AND OBSTRUCTIVE HYDRONEPHROSIS. URETERAL STENT COULD BE CONSIDERED.
== END 2018-04-07 15:40 | disposition home or self-care (01) ==
LOC: EC 09:38
DX: C61 Malignant neoplasm of prostate (principal); N13.30 Unspecified hydronephrosis; R59.0 Localized enlarged lymph nodes; F17.200 Nicotine dependence, unspecified, uncomplicated; Z79.82 Long term (current) use of aspirin; Z79.899 Other long term (current) drug therapy; M79.89 Other specified soft tissue disorders
CPT/HCPCS: 99284 ×2; 36415; 83880; 80053; 85025; 85610; 85730; 81001; 87086; 93975; 76870; 93971; 74177; Q9967

== ENCOUNTER 2018-05-11 11:14 | Inpatient (IN) | payer MEDICARE ==
[2018-05-11] MEDS ORDERED: PANTOPRAZOLE 40 MG/10 ML VIAL IVP STA (11:54)
--- NOTE | 2018-05-11 11:56 | ED ---
General Adult HPI - General Chief complaint: GI Bleed Stated complaint: Blood in stool/sob Time Seen by Provider: 05/11/18 11:36 Source: patient, RN notes reviewed, old records reviewed Mode of arrival: wheelchair Limitations: no limitations - History of Present Illness Initial comments: 83-year-old male presents with an episode of bright red rectal bleeding. This happened early this morning. Patient describes this as a significant amount of blood. Patient is not on any anticoagulation, he is on 81 mg aspirin. He is uncertain of when his last colonoscopy was. Denies any pain associated with this rectal bleeding. Episode was not accompanied by any stool. This was described as dark blood with streaking of bright red blood. Patient has history of prostate cancer, currently on oral chemotherapy. Patient has no complaint of abdominal pain, no nausea vomiting. No fever or chills. He does feel lightheaded and somewhat fatigued. - Related Data Home Medications Medication Instructions Recorded Confirmed Aspirin EC [Ecotrin Low Dose] 81 mg PO DAILY 09/20/14 05/11/18 Tamsulosin HCl [Flomax] 0.4 mg PO DAILY 09/25/14 05/11/18 Multivitamins, Thera [Multivitamin 1 tab PO DAILY 04/07/18 05/11/18 (formulary)] Abiraterone Acetate [Zytiga] 1,000 mg PO BID 05/11/18 05/11/18 predniSONE 5 mg PO DAILY 05/11/18 05/11/18 Allergies Allergy/AdvReac Type Severity Reaction Status Date / Time No Known Allergies Allergy Verified 05/11/18 11:34 Review of Systems ROS Statement: Those systems with pertinent positive or pertinent negative responses have been documented in the HPI. ROS Other: All systems not noted in ROS Statement are negative. Past Medical History Past Medical History: Cancer, GI Bleed, Hearing Disorder / Deafness, Liver Disease, Osteoarthritis (OA), Prostate Disorder Additional Past Medical History / Comment(s): PUD/bleeding ulcer/BPH, prostate cancer History of Any Multi-Drug Resistant Organisms: None Reported Past Surgical History: Bowel Resection Additional Past Surgical History / Comment(s): upper endoscopy, colonoscopy, BOWEL RESECTION Past Anesthesia/Blood Transfusion Reactions: No Reported Reaction Past Psychological History: No Psychological Hx Reported Smoking Status: Light tobacco smoker Past Alcohol Use History: Rare Past Drug Use History: None Reported - Past Family History Father Family Medical History: No Reported History, COPD, Vascular Disorder Additional Family Medical History / Comment(s): age 59 cerebral anuerysm Mother Family Medical History: No Reported History Brother(s) Family Medical History: Coronary Artery Disease (CAD) Additional Family Medical History / Comment(s): at age 48 massive mi Sister(s) Family Medical History: No Reported History Daughter(s) Family Medical History: No Reported History General Exam Limitations: no limitations General appearance: alert, in no apparent distress Head exam: Present: atraumatic, normocephalic Eye exam: Present: normal appearance, PERRL ENT exam: Present: normal exam Neck exam: Present: normal inspection. Absent: tenderness, meningismus Respiratory exam: Present: normal lung sounds bilaterally. Absent: respiratory distress, wheezes Cardiovascular Exam: Present: regular rate, normal rhythm GI/Abdominal exam: Present: soft. Absent: distended, tenderness, guarding Rectal exam: Present: normal rectal tone, bloody stool. Absent: hemorrhoids, tenderness Extremities exam: Present: normal inspection, full ROM, normal capillary refill. Absent: pedal edema Neurological exam: Present: alert, oriented X3, CN II-XII intact. Absent: motor sensory deficit Psychiatric exam: Present: normal affect, normal mood Skin exam: Present: warm, dry, intact. Absent: cyanosis, diaphoretic Course Vital Signs 05/11/18 05/11/18 11:32 11:59 Temperature 97.7 F Pulse Rate 114 H 88 Respiratory 20 18 Rate Blood Pressure 122/79 124/77 O2 Sat by Pulse 96 Oximetry EKG Findings - EKG Comments: EKG Findings:: EKG: Normal sinus rhythm, right bundle branch block, rate of 100 , MO interval 146, QRS duration 132, QTC 513, there is no ST segment elevation. Medical Decision Making - Medical Decision Making 83-year-old male presenting with history suggestive of lower GI bleed. On exam there is bright red blood per rectum. No active bleeding. No episodes of hematochezia while in the emergency department. Hemoglobin is 10 however one month ago as hemoglobin was 15. Vital signs remained stable. He will be admitted to the hospital for further evaluation and treatment. Gastroenterology placed on consult. - Lab Data Result diagrams: 05/11/18 11:55 05/11/18 11:55 Lab Results 05/11/18 05/11/18 05/11/18 Range/Units 11:55 11:55 11:55 WBC 9.6 (3.8-10.6) k/uL RBC 3.84 L (4.30-5.90) m/uL Hgb 10.2 L D (13.0-17.5) gm/dL Hct 30.4 L (39.0-53.0) % MCV 79.3 L (80.0-100.0) fL MCH 26.6 (25.0-35.0) pg MCHC 33.6 (31.0-37.0) g/dL RDW 14.4 (11.5-15.5) % Plt Count 438 (150-450) k/uL Neutrophils % 78 % Lymphocytes % 16 % Monocytes % 3 % Eosinophils % 2 % Basophils % 0 % Neutrophils # 7.5 (1.3-7.7) k/uL Lymphocytes # 1.6 (1.0-4.8) k/uL Monocytes # 0.3 (0-1.0) k/uL Eosinophils # 0.2 (0-0.7) k/uL Basophils # 0.0 (0-0.2) k/uL PT (9.0-12.0) sec INR (<1.2) APTT (22.0-30.0) sec Sodium 141 (137-145) mmol/L Potassium 3.3 L (3.5-5.1) mmol/L Chloride 105 (98-107) mmol/L Carbon Dioxide 29 (22-30) mmol/L Anion Gap 7 mmol/L BUN 38 H (9-20) mg/dL Creatinine 1.30 H (0.66-1.25) mg/dL Est GFR (CKD-EPI)AfAm 58 (>60 ml/min/1.73 sqM) Est GFR (CKD-EPI)NonAf 50 (>60 ml/min/1.73 sqM) Glucose 120 H (74-99) mg/dL Plasma Lactic Acid Nish (0.7-2.0) mmol/L Calcium 8.8 (8.4-10.2) mg/dL Magnesium 2.2 (1.6-2.3) mg/dL Total Bilirubin 0.3 (0.2-1.3) mg/dL AST 31 (17-59) U/L ALT 50 (21-72) U/L Alkaline Phosphatase 70 (38-126) U/L Total Creatine Kinase <20 L (55-170) U/L CK-MB (CK-2) <0.2 (0.0-2.4) ng/mL CK-MB (CK-2) Rel Index Troponin I <0.012 (0.000-0.034) ng/mL Total Protein 5.4 L (6.3-8.2) g/dL Albumin 2.7 L (3.5-5.0) g/dL Blood Type Blood Type Recheck Antibody Screen Spec Expiration Date 05/11/18 05/11/18 05/11/18 Range/Units 11:55 11:55 11:55 WBC (3.8-10.6) k/uL RBC (4.30-5.90) m/uL Hgb (13.0-17.5) gm/dL Hct (39.0-53.0) % MCV (80.0-100.0) fL MCH (25.0-35.0) pg MCHC (31.0-37.0) g/dL RDW (11.5-15.5) % Plt Count (150-450) k/uL Neutrophils % % Lymphocytes % % Monocytes % % Eosinophils % % Basophils % % Neutrophils # (1.3-7.7) k/uL Lymphocytes # (1.0-4.8) k/uL Monocytes # (0-1.0) k/uL Eosinophils # (0-0.7) k/uL Basophils # (0-0.2) k/uL PT 9.7 (9.0-12.0) sec INR 1.0 (<1.2) APTT 20.9 L (22.0-30.0) sec Sodium (137-145) mmol/L Potassium (3.5-5.1) mmol/L Chloride (98-107) mmol/L Carbon Dioxide (22-30) mmol/L Anion Gap mmol/L BUN (9-20) mg/dL Creatinine (0.66-1.25) mg/dL Est GFR (CKD-EPI)AfAm (>60 ml/min/1.73 sqM) Est GFR (CKD-EPI)NonAf (>60 ml/min/1.73 sqM) Glucose (74-99) mg/dL Plasma Lactic Acid Nish 1.7 (0.7-2.0) mmol/L Calcium (8.4-10.2) mg/dL Magnesium (1.6-2.3) mg/dL Total Bilirubin (0.2-1.3) mg/dL AST (17-59) U/L ALT (21-72) U/L Alkaline Phosphatase (38-126) U/L Total Creatine Kinase (55-170) U/L CK-MB (CK-2) (0.0-2.4) ng/mL CK-MB (CK-2) Rel Index Troponin I (0.000-0.034) ng/mL Total Protein (6.3-8.2) g/dL Albumin (3.5-5.0) g/dL Blood Type B Positive Blood Type Recheck CABO Indicated Antibody Screen NEGATIVE Spec Expiration Date 05/14/2018 - 2355 Disposition Clinical Impression: Hematochezia Disposition: ADMITTED IP TO THIS [facility] Condition: Stable Is patient prescribed a controlled substance at d/c from ED?: No Referrals: Candy Kruse DO [Primary Care Provider] - 1-2 days Decision to Admit Reason: Admit from EC Decision Date: 05/11/18 Decision Time: 12:51
[2018-05-11] MEDS ORDERED: SODIUM CHLORIDE 0.9% 1,000 ML IV SCH (12:00)
[2018-05-11 12:19] LABS: Albumin 2.7 g/dL (3.5-5.0); Calcium 8.8 mg/dL (8.4-10.2); Magnesium 2.2 mg/dL (1.6-2.3); Potassium 3.3 mmol/L (3.5-5.1); Total Bilirubin 0.3 mg/dL (0.2-1.3); Total Protein 5.4 g/dL (6.3-8.2)
[2018-05-11 12:24] LABS: Prothrombin Time 9.7 sec (9.0-12.0)
[2018-05-11 12:28] LABS: Basophils % (A) 0 %; Eosinophils # (A) 0.2 k/uL (0-0.7); Eosinophils % (A) 2 %; HCT 30.4 % (39.0-53.0); Lymphocytes # (A) 1.6 k/uL (1.0-4.8); Lymphocytes % (A) 16 %; MCH 26.6 pg (25.0-35.0); MCHC 33.6 g/dL (31.0-37.0); MCV 79.3 fL (80.0-100.0); Mean Platelet Volume 6.8; Monocytes # (A) 0.3 k/uL (0-1.0); Monocytes % (A) 3 %; Neutrophils # (A) 7.5 k/uL (1.3-7.7); Neutrophils % (A) 78 %; Partial Thromboplastin Time 20.9 sec (22.0-30.0); Platelet Count 438 k/uL (150-450); RBC 3.84 m/uL (4.30-5.90); RDW 14.4 % (11.5-15.5); WBC 9.6 k/uL (3.8-10.6)
[2018-05-11 12:31] LABS: Creatine Kinase <20 U/L (55-170)
[2018-05-11 12:32] LABS: HGB 10.2 gm/dL (13.0-17.5)
[2018-05-11 12:43] LABS: Creatine Kinase MB <0.2 ng/mL (0.0-2.4); Troponin I <0.012 ng/mL (0.000-0.034)
[2018-05-11] MEDS ORDERED: NALOXONE 0.4 MG/ML 1 ML VIAL IV PRN (12:48)
[2018-05-11] MEDS ORDERED: ACETAMINOPHEN TAB 325 MG TAB PO PRN (13:26)
[2018-05-11] MEDS: SODIUM CHLORIDE 0.9% 1,000 ML IV SCH (13:42)
--- NOTE | 2018-05-11 13:53 | P.HPIM ---
History of Present Illness Chief Complaint: Bright red blood per rectum This is a 83-year-old male diagnosed with state cancer about a year ago currently on chemotherapy and prednisone, otherwise healthy, who suddenly passed bright red blood in his stool last night. Patient is usual state of health is taking his chemotherapy and prednisone with prostate cancer and been tolerating this well. Suddenly last night around 3 AM he woke up and felt that he is losing blood from his bottom. He then went to the bathroom where he noticed a large amount of red blood just pouring out of his bottom. He also noticed several formed blood clots. He did not notice any abdominal pain. He states that maybe a few days ago he has some discomfort on the right side of his stomach but nothing currently. There was no any stool in the blood. There was no mucus. There was no any abdominal pain nausea vomiting fever or chills. There is no heartburns. Along with this he fell this morning somewhat lightheaded and very tired and weak and that's why decided to come to emergency Department. Emergency department was found that his blood pressure stable and heart rate in 100-114 and hemoglobin of 10.4. A month ago his hemoglobin was 15. He was started on IV fluids and admitted for further evaluation. He does not recall any appetite or weight loss. He believes that he had colonoscopy many years ago I not sure if any recent colonoscopies. He denies any family history of any colon malignancies. He does not take any blood thinners. He does take baby aspirin daily for prophylaxis. He does not have any active or known cardiac disease or history of CVA he's been taking 5 mg of prednisone his chemotherapy. He denies any usage of NSAIDs or any new medications or [id number] medications. He denies any difficulties in urination. Denies any changes in the habits his bowel movements recently. Review of Systems Constitutional: Denies anorexia, Denies chills, Denies fatigue, Denies malaise Cardiovascular: Denies chest pain, Denies claudication, Denies decreased exercise tolerance, Denies dyspnea on exertion, Denies edema Respiratory: Denies congestion, Denies cough, Denies cough with sputum, Denies dyspnea, Denies excessive sputum Gastrointestinal: Reports as per HPI Genitourinary: Denies discharge, Denies dysuria, Denies flank pain, Denies polyuria Integumentary: Denies pruritus, Denies rash, Denies sores Neurological: Denies balance difficulties Psychiatric: Denies anxiety, Denies depression Endocrine: Denies excessive thirst, Denies fatigue, Denies heat intolerance, Denies nocturia Hematologic/Lymphatic: Denies easy bleeding, Denies easy bruising Past Medical History Past Medical History: Cancer, GI Bleed, Hearing Disorder / Deafness, Liver Disease, Osteoarthritis (OA), Prostate Disorder Additional Past Medical History / Comment(s): PUD/bleeding ulcer/BPH, prostate cancer History of Any Multi-Drug Resistant Organisms: None Reported Past Surgical History: Bowel Resection Additional Past Surgical History / Comment(s): upper endoscopy, colonoscopy, BOWEL RESECTION Past Anesthesia/Blood Transfusion Reactions: No Reported Reaction Past Psychological History: No Psychological Hx Reported Smoking Status: Light tobacco smoker Past Alcohol Use History: Rare Past Drug Use History: None Reported - Past Family History Father Family Medical History: No Reported History, COPD, Vascular Disorder Additional Family Medical History / Comment(s): age 59 cerebral anuerysm Mother Family Medical History: No Reported History Brother(s) Family Medical History: Coronary Artery Disease (CAD) Additional Family Medical History / Comment(s): at age 48 massive mi Sister(s) Family Medical History: No Reported History Daughter(s) Family Medical History: No Reported History Medications and Allergies Home Medications Medication Instructions Recorded Confirmed Type Aspirin EC [Ecotrin Low Dose] 81 mg PO DAILY 09/20/14 05/11/18 History Tamsulosin HCl [Flomax] 0.4 mg PO DAILY 09/25/14 05/11/18 History Multivitamins, Thera [Multivitamin 1 tab PO DAILY 04/07/18 05/11/18 History (formulary)] Abiraterone Acetate [Zytiga] 1,000 mg PO BID 05/11/18 05/11/18 History predniSONE 5 mg PO DAILY 05/11/18 05/11/18 History Allergies Allergy/AdvReac Type Severity Reaction Status Date / Time No Known Allergies Allergy Verified 05/11/18 11:34 Physical Exam Vitals: Vital Signs Temp Pulse Resp BP Pulse Ox 05/11/18 12:49 76 16 114/63 05/11/18 11:59 88 18 124/77 05/11/18 11:32 97.7 F 114 H 20 122/79 96 Intake and Output 05/10/18 05/11/18 05/11/18 22:59 06:59 14:59 Other: Weight 79.379 kg Gen.: Awake alert oriented 3 no any apparent distress, conversive and cooperative Head and neck examination: Atraumatic normocephalic anicteric sclera and moist mucous membranes without lesions no facial asymmetry neck is supple without any masses or JVD Cardiovascular: Regular rhythm and rate S1-S2 no significant murmurs Respiratory: Normal breathing effort, clear to auscultation bilaterally without any wheezing or crackles Abdomen: Soft and nontender nondistended no guarding or rebound bowel sounds are positive in all 4 quadrants, left inguinal area with small firm lymph nodes nontender reduce mobility size of a peanut no flank tenderness Extremities: Without peripheral edema swelling redness or tenderness Musculoskeletal: Joints without deformities or warmth Skin: Without any rashes Neurological: Cranial nerves are intact and no focal deficits Results CBC & Chem 7: 05/11/18 11:55 05/11/18 11:55 Labs: Abnormal Lab Results - Last 24 Hours (Table) 05/11/18 05/11/18 05/11/18 Range/Units 11:55 11:55 11:55 RBC 3.84 L (4.30-5.90) m/uL Hgb 10.2 L D (13.0-17.5) gm/dL Hct 30.4 L (39.0-53.0) % MCV 79.3 L (80.0-100.0) fL APTT (22.0-30.0) sec Potassium 3.3 L (3.5-5.1) mmol/L BUN 38 H (9-20) mg/dL Creatinine 1.30 H (0.66-1.25) mg/dL Glucose 120 H (74-99) mg/dL Total Creatine Kinase <20 L (55-170) U/L Total Protein 5.4 L (6.3-8.2) g/dL Albumin 2.7 L (3.5-5.0) g/dL 05/11/18 Range/Units 11:55 RBC (4.30-5.90) m/uL Hgb (13.0-17.5) gm/dL Hct (39.0-53.0) % MCV (80.0-100.0) fL APTT 20.9 L (22.0-30.0) sec Potassium (3.5-5.1) mmol/L BUN (9-20) mg/dL Creatinine (0.66-1.25) mg/dL Glucose (74-99) mg/dL Total Creatine Kinase (55-170) U/L Total Protein (6.3-8.2) g/dL Albumin (3.5-5.0) g/dL Thrombosis Risk Factor Assmnt - DVT/VTE Prophylaxis DVT/VTE Prophylaxis: Mechanical Prophylaxis ordered Assessment and Plan Plan: 1. Acute GI bleed, likely lower GI consult NPO Type and screen IV fluids Monitor hemoglobin Admit to stepdown unit for closer observation 2. Acute anemia of blood loss Monitor hemoglobin every 6 hours Will transfuse if hemoglobin less than 7 or if patient symptomatic despite levels above 7 3. Acute kidney injury This could be prerenal due to: Depletion 90 fluids started Given the history of prostate cancer we'll check postvoiding residuals as well 4. Hypokalemia, mild Will replace and check magnesium 5. Prostate cancer Patient to his chemotherapy and prednisone this morning We'll hold chemotherapy He is on low risk for suppression of adrenal gland we will continue his home dose of prednisone We will need to hold Flomax due to effects in the blood pressure 6. Failure to thrive and protein calorie malnutrition, moderate Albumin 2.4 Currently nothing by mouth After that the appropriate high-protein diet PT/OT Case management to evaluate home situation Time with Patient: Greater than 30
[2018-05-11 18:09] LABS: Albumin 2.4 g/dL (3.5-5.0); Calcium 8.4 mg/dL (8.4-10.2); Potassium 3.7 mmol/L (3.5-5.1); Total Bilirubin 0.4 mg/dL (0.2-1.3); Total Protein 4.9 g/dL (6.3-8.2)
[2018-05-11 18:32] LABS: Basophils % (A) 0 %; Eosinophils # (A) 0.1 k/uL (0-0.7); Eosinophils % (A) 1 %; HCT 27.1 % (39.0-53.0); HGB 9.2 gm/dL (13.0-17.5); Lymphocytes # (A) 1.3 k/uL (1.0-4.8); Lymphocytes % (A) 16 %; MCH 27.2 pg (25.0-35.0); MCHC 33.8 g/dL (31.0-37.0); MCV 80.5 fL (80.0-100.0); Mean Platelet Volume 6.8; Monocytes # (A) 0.2 k/uL (0-1.0); Monocytes % (A) 3 %; Neutrophils # (A) 6.3 k/uL (1.3-7.7); Neutrophils % (A) 79 %; Platelet Count 389 k/uL (150-450); RBC 3.37 m/uL (4.30-5.90); RDW 14.3 % (11.5-15.5); WBC 7.9 k/uL (3.8-10.6)
[2018-05-11] MEDS: PANTOPRAZOLE 40 MG/10 ML VIAL IVP SCH (20:30)
[2018-05-11 22:56] LABS: HGB 8.8 gm/dL (13.0-17.5); MCH 26.9 pg (25.0-35.0); MCHC 33.6 g/dL (31.0-37.0); MCV 80.1 fL (80.0-100.0); Mean Platelet Volume 7.2; Platelet Count 379 k/uL (150-450); RBC 3.25 m/uL (4.30-5.90); RDW 14.3 % (11.5-15.5); WBC 7.1 k/uL (3.8-10.6)
[2018-05-12] MEDS: SODIUM CHLORIDE 0.9% 1,000 ML IV SCH (01:08)
[2018-05-12 06:26] LABS: HCT 26.8 % (39.0-53.0); HGB 8.8 gm/dL (13.0-17.5); MCH 26.4 pg (25.0-35.0); MCHC 32.9 g/dL (31.0-37.0); MCV 80.3 fL (80.0-100.0); Mean Platelet Volume 6.7; Platelet Count 364 k/uL (150-450); RBC 3.34 m/uL (4.30-5.90); RDW 14.4 % (11.5-15.5); WBC 7.2 k/uL (3.8-10.6)
[2018-05-12 06:47] LABS: Calcium 8.3 mg/dL (8.4-10.2); Potassium 3.4 mmol/L (3.5-5.1)
--- NOTE | 2018-05-12 08:24 | P.CONS ---
History of Present Illness - Reason for Consult Consult date: 05/12/18 rectal bleeding Requesting physician: Tegan Cope - History of Present Illness 83-year-old man recently diagnosed with metastatic prostate carcinoma status post recent lymph node biopsy 04/22/2018 maintained on chemotherapy and steroids without radiation. Additional past medical history of colonic diverticulosis per CT in 2017, dysphagia and abnormal MRCP 2017 status post EGD last May long segment with findings of of Waite's esophagus but no evidence of ampullary mass. Presents with increased weakness fatigue painless red clot blood-tinged bowel movements. No history GI bleed. He has a history of small bowel resection of 14 years ago for "piece of bowel was distended". Denies fever chills medical emesis or melena. No history of peptic ulcer disease. Last colonoscopy more than 10 years ago does not remember the findings. Denies NSAIDs takes a baby aspirin daily. Admission hemoglobin 10.2 decreased to 8.8 without blood transfusion. Previous hemoglobin one month ago 15.2. Current MCV 80. Platelet 364. INR 1.0. BUN 38. Creatinine 1.3. CEA 1 month ago 1.1. AFP was less than 2.5. Review of Systems Constitutional: Denies fever, chills, sweats, weight gain, or loss. Increased lethargy fatigue weakness. HEENT: Negative for migraines, blurred vision or loss, earaches, drainage, tinnitus, oral mucosal lesions, dysphagia, or odynophagia. Cardiac: Negative for chest pain, arrhythmias, or palpitation. Respiratory: Negative for shortness of breath, hemoptysis, cough, or sputum production. Gastrointestinal: See HPI for pertinent findings. Genitourinary: Currently receiving treatment for prostate cancer. Negative for hematuria, urgency, frequency, polyuria, dysuria, or penile discharge. Musculoskeletal: Negative for muscle aches, swelling, arthritis, and arthralgias. Neurologic: Negative for stroke or TIA. Endocrine: Negative for thyroid problems. Skin: Negative for rash or itching. Psychiatric: Negative history for depression and anxiety Past Medical History Past Medical History: Cancer, GI Bleed, Hearing Disorder / Deafness, Liver Disease, Osteoarthritis (OA), Prostate Disorder Additional Past Medical History / Comment(s): PUD/bleeding ulcer/BPH, prostate cancer, bladder cancer, past sbo, History of Any Multi-Drug Resistant Organisms: None Reported Past Surgical History: Bladder Surgery, Bowel Resection Additional Past Surgical History / Comment(s): upper endoscopy, colonoscopy,exp lap,BOWEL RESECTION Past Anesthesia/Blood Transfusion Reactions: No Reported Reaction Smoking Status: Former smoker - Past Family History Father Family Medical History: No Reported History, COPD, Vascular Disorder Additional Family Medical History / Comment(s): age 59 cerebral anuerysm Mother Family Medical History: No Reported History Brother(s) Family Medical History: Coronary Artery Disease (CAD) Additional Family Medical History / Comment(s): at age 48 massive mi Sister(s) Family Medical History: No Reported History Daughter(s) Family Medical History: No Reported History Medications and Allergies Home Medications Medication Instructions Recorded Confirmed Type Aspirin EC [Ecotrin Low Dose] 81 mg PO DAILY 09/20/14 05/11/18 History Tamsulosin HCl [Flomax] 0.4 mg PO DAILY 09/25/14 05/11/18 History Multivitamins, Thera [Multivitamin 1 tab PO DAILY 04/07/18 05/11/18 History (formulary)] Abiraterone Acetate [Zytiga] 1,000 mg PO BID 05/11/18 05/11/18 History predniSONE 5 mg PO DAILY 05/11/18 05/11/18 History Allergies Allergy/AdvReac Type Severity Reaction Status Date / Time No Known Allergies Allergy Verified 05/11/18 11:34 Physical Exam Vitals: Vital Signs Temp Pulse Pulse Resp BP BP Pulse Ox 05/12/18 04:00 97.1 F L 63 18 134/72 98 05/11/18 23:39 97.1 F L 69 18 149/77 99 05/11/18 20:00 97.2 F L 76 18 137/76 100 05/11/18 18:37 98.6 F 78 16 147/77 96 05/11/18 16:38 81 16 151/75 100 05/11/18 13:48 98 05/11/18 12:49 76 16 114/63 05/11/18 11:59 88 18 124/77 05/11/18 11:32 97.7 F 114 H 20 122/79 96 Intake and Output 05/11/18 05/12/18 05/12/18 22:59 06:59 14:59 Intake Total 1000 Output Total 950 Balance 50 Intake: Intake, IV Titration 1000 Amount Sodium Chloride 0.9% 1, 1000 000 ml @ 100 mls/hr IV . Q10H [facility] Rx#:[id number] Output: Urine 950 Other: Voiding Method Urinal Urinal Weight 80 kg General appearance: The patient is alert, oriented, in no acute distress. HET: Head is normocephalic and atraumatic. Pupils are equal and reactive. Oropharynx is clear without lesions. Neck: Supple without lymphadenopathy. Trachea midline. Heart: S1 S2. Regular rate and rhythm. Lungs: No crackles or wheezes are heard. Abdomen: Soft, nontender, nondistended with bowel sounds. No peritoneal signs. No palpable organomegaly or masses. Extremities: Normal skin color and turgor. No cyanosis, rash, ulceration, clubbing, or edema. Radial and pedal pulses are 2/4 bilaterally. Neurological: No focal deficits. Strength and sensation are grossly intact. Results CBC & Chem 7: 05/14/18 05:39 05/14/18 05:39 Labs: Abnormal Lab Results - Last 24 Hours (Table) 05/11/18 05/11/18 05/11/18 Range/Units 11:55 11:55 11:55 RBC 3.84 L (4.30-5.90) m/uL Hgb 10.2 L D (13.0-17.5) gm/dL Hct 30.4 L (39.0-53.0) % MCV 79.3 L (80.0-100.0) fL APTT (22.0-30.0) sec Potassium 3.3 L (3.5-5.1) mmol/L Chloride (98-107) mmol/L BUN 38 H (9-20) mg/dL Creatinine 1.30 H (0.66-1.25) mg/dL Glucose 120 H (74-99) mg/dL Calcium (8.4-10.2) mg/dL Total Creatine Kinase <20 L (55-170) U/L Total Protein 5.4 L (6.3-8.2) g/dL Albumin 2.7 L (3.5-5.0) g/dL 05/11/18 05/11/18 05/11/18 Range/Units 11:55 17:33 17:33 RBC 3.37 L (4.30-5.90) m/uL Hgb 9.2 L (13.0-17.5) gm/dL Hct 27.1 L (39.0-53.0) % MCV (80.0-100.0) fL APTT 20.9 L (22.0-30.0) sec Potassium (3.5-5.1) mmol/L Chloride (98-107) mmol/L BUN 35 H (9-20) mg/dL Creatinine 1.31 H (0.66-1.25) mg/dL Glucose (74-99) mg/dL Calcium (8.4-10.2) mg/dL Total Creatine Kinase (55-170) U/L Total Protein 4.9 L (6.3-8.2) g/dL Albumin 2.4 L (3.5-5.0) g/dL 05/11/18 05/12/18 05/12/18 Range/Units 22:41 06:08 06:08 RBC 3.25 L 3.34 L (4.30-5.90) m/uL Hgb 8.8 L 8.8 L (13.0-17.5) gm/dL Hct 26.0 L 26.8 L (39.0-53.0) % MCV (80.0-100.0) fL APTT (22.0-30.0) sec Potassium 3.4 L (3.5-5.1) mmol/L Chloride 111 H (98-107) mmol/L BUN 33 H (9-20) mg/dL Creatinine 1.29 H (0.66-1.25) mg/dL Glucose (74-99) mg/dL Calcium 8.3 L (8.4-10.2) mg/dL Total Creatine Kinase (55-170) U/L Total Protein (6.3-8.2) g/dL Albumin (3.5-5.0) g/dL Assessment and Plan (1) Hematochezia Narrative/Plan: Suspect colonic diverticular bleed however upper GI source cannot be excluded other differential considerations is local invasion into the rectal wall from prostate disease. Current Visit: Yes Status: Acute Code(s): K92.1 - MELENA SNOMED Code(s): 406077941 (2) Acute blood loss anemia Current Visit: Yes Status: Acute Code(s): D62 - ACUTE POSTHEMORRHAGIC ANEMIA SNOMED Code(s): 621574990 (3) Prostate cancer Narrative/Plan: Metastatic Current Visit: Yes Status: Acute Code(s): C61 - MALIGNANT NEOPLASM OF PROSTATE SNOMED Code(s): 950931724 (4) Barretts esophagus Current Visit: Yes Status: Acute Code(s): K22.70 - WAITE'S ESOPHAGUS WITHOUT DYSPLASIA SNOMED Code(s): 974470721 Plan: 1. EGD/colonoscopy tomorrow. Patient has requested an agreeable to endoscopic investigation of his bleeding. 2. Liquid diet today. 3. Continue Protonix 40 mg twice daily. Nothing by mouth after clear liquid breakfast tomorrow. 4. CBC monitoring. 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 The patient has indicated understanding and acceptance of the risks and procedures discussed. Thank you for this kind referral and the opportunity to participate in the care of your patient. This consultation was discussed with Dr. Cam. The impression and plan of care have been directed as dictated.
[2018-05-12] MEDS: PANTOPRAZOLE 40 MG/10 ML VIAL IVP SCH ×2 (08:54→20:39)
[2018-05-12] MEDS: predniSONE 5 MG TAB PO SCH (08:54)
[2018-05-12 09:14] LABS: Appearance,Urine Cloudy (Clear); Bacteria,Urine Rare /hpf; Bilirubin,Urine Negative (Negative); Blood,Urine Moderate (Negative); Color,Urine Light Yellow; Glucose,Urine (UA) Negative (Negative); Ketones,Urine Negative (Negative); Leukocyte Esterase,Urine Large (Negative); Mucus,Urine Rare /hpf; Nitrite,Urine Negative (Negative); PH, Urine 5.5 (5.0-8.0); Protein,Urine Trace (Negative); RBC,Urine 7 /hpf (0-5); Specific Gravity,Urine 1.009 (1.001-1.035); Squamous Epithelial Cell,Urine <1 /hpf (0-4); Urobilinogen,Urine <2.0 mg/dL (<2.0); WBC,Urine >182 /hpf (0-5)
--- NOTE | 2018-05-12 12:03 | P.PN ---
Subjective No new episodes of visible bleeding. Hb stablized at 8.8. Reports dizziness when standing up and fatigue. Some urinary frequency, but no dysuria or starining. Reports good urine output. Otherwise no new events or complaints. Objective - Vital Signs Vital signs: Vital Signs Temp 97.1 F L 05/12/18 11:47 Pulse 95 05/12/18 11:47 Resp 16 05/12/18 11:47 BP 136/77 05/12/18 11:47 Pulse Ox 97 05/12/18 11:47 Intake & Output 05/11/18 05/12/18 05/12/18 18:59 06:59 18:59 Intake Total 1000 0 Output Total 950 300 Balance 50 -300 Weight 79.379 kg 80 kg Intake: Intake, IV Titration 1000 Amount Sodium Chloride 0.9% 1, 1000 000 ml @ 100 mls/hr IV . Q10H [facility] Rx#:[id number] Blood Product 0 Rc As-1 Unit 0 [id number] Output: Urine 950 300 Other: Voiding Method Urinal Urinal Urinal - Constitutional General appearance: Present: cooperative, no acute distress - EENT Eyes: Present: anicteric sclerae, normal appearance - Neck Neck: Present: normal ROM. Absent: lymphadenopathy - Respiratory Respiratory: bilateral: CTA - Cardiovascular Heart sounds: normal: S1, S2 Abnormal Heart Sounds: Present: systolic murmur, diastolic murmur - Gastrointestinal General gastrointestinal: Present: normal bowel sounds, soft. Absent: organomegaly, rigid, tenderness - Integumentary Integumentary: Absent: pale, rash - Neurologic Neurologic: Present: CNII-XII intact - Musculoskeletal Musculoskeletal: Present: strength equal bilaterally - Psychiatric Psychiatric: Present: A&O x's 3, appropriate affect - Labs CBC & Chem 7: 05/12/18 06:08 05/12/18 06:08 Labs: Abnormal Lab Results - Last 24 Hours (Table) 05/11/18 05/11/18 05/11/18 Range/Units 11:55 11:55 11:55 RBC 3.84 L (4.30-5.90) m/uL Hgb 10.2 L D (13.0-17.5) gm/dL Hct 30.4 L (39.0-53.0) % MCV 79.3 L (80.0-100.0) fL APTT (22.0-30.0) sec Potassium 3.3 L (3.5-5.1) mmol/L Chloride (98-107) mmol/L BUN 38 H (9-20) mg/dL Creatinine 1.30 H (0.66-1.25) mg/dL Glucose 120 H (74-99) mg/dL Calcium (8.4-10.2) mg/dL Total Creatine Kinase <20 L (55-170) U/L Total Protein 5.4 L (6.3-8.2) g/dL Albumin 2.7 L (3.5-5.0) g/dL Urine Protein (Negative) Urine Blood (Negative) Ur Leukocyte Esterase (Negative) Urine RBC (0-5) /hpf Urine WBC (0-5) /hpf Urine WBC Clumps (None) /hpf Urine Bacteria (None) /hpf Urine Mucus (None) /hpf Crossmatch 05/11/18 05/11/18 05/11/18 Range/Units 11:55 11:55 17:33 RBC 3.37 L (4.30-5.90) m/uL Hgb 9.2 L (13.0-17.5) gm/dL Hct 27.1 L (39.0-53.0) % MCV (80.0-100.0) fL APTT 20.9 L (22.0-30.0) sec Potassium (3.5-5.1) mmol/L Chloride (98-107) mmol/L BUN (9-20) mg/dL Creatinine (0.66-1.25) mg/dL Glucose (74-99) mg/dL Calcium (8.4-10.2) mg/dL Total Creatine Kinase (55-170) U/L Total Protein (6.3-8.2) g/dL Albumin (3.5-5.0) g/dL Urine Protein (Negative) Urine Blood (Negative) Ur Leukocyte Esterase (Negative) Urine RBC (0-5) /hpf Urine WBC (0-5) /hpf Urine WBC Clumps (None) /hpf Urine Bacteria (None) /hpf Urine Mucus (None) /hpf Crossmatch See Detail 05/11/18 05/11/18 05/12/18 Range/Units 17:33 22:41 06:08 RBC 3.25 L (4.30-5.90) m/uL Hgb 8.8 L (13.0-17.5) gm/dL Hct 26.0 L (39.0-53.0) % MCV (80.0-100.0) fL APTT (22.0-30.0) sec Potassium 3.4 L (3.5-5.1) mmol/L Chloride 111 H (98-107) mmol/L BUN 35 H 33 H (9-20) mg/dL Creatinine 1.31 H 1.29 H (0.66-1.25) mg/dL Glucose (74-99) mg/dL Calcium 8.3 L (8.4-10.2) mg/dL Total Creatine Kinase (55-170) U/L Total Protein 4.9 L (6.3-8.2) g/dL Albumin 2.4 L (3.5-5.0) g/dL Urine Protein (Negative) Urine Blood (Negative) Ur Leukocyte Esterase (Negative) Urine RBC (0-5) /hpf Urine WBC (0-5) /hpf Urine WBC Clumps (None) /hpf Urine Bacteria (None) /hpf Urine Mucus (None) /hpf Crossmatch 05/12/18 05/12/18 Range/Units 06:08 07:55 RBC 3.34 L (4.30-5.90) m/uL Hgb 8.8 L (13.0-17.5) gm/dL Hct 26.8 L (39.0-53.0) % MCV (80.0-100.0) fL APTT (22.0-30.0) sec Potassium (3.5-5.1) mmol/L Chloride (98-107) mmol/L BUN (9-20) mg/dL Creatinine (0.66-1.25) mg/dL Glucose (74-99) mg/dL Calcium (8.4-10.2) mg/dL Total Creatine Kinase (55-170) U/L Total Protein (6.3-8.2) g/dL Albumin (3.5-5.0) g/dL Urine Protein Trace H (Negative) Urine Blood Moderate H (Negative) Ur Leukocyte Esterase Large H (Negative) Urine RBC 7 H (0-5) /hpf Urine WBC >182 H (0-5) /hpf Urine WBC Clumps Few H (None) /hpf Urine Bacteria Rare H (None) /hpf Urine Mucus Rare H (None) /hpf Crossmatch Assessment and Plan Plan: 1. Acute GI bleed cont H&H surrvailance EGD/colonoscopy in am 2. Acute anemia of blood loss hb 15 (in April) downt t o8.8, now stable symptomatic transfuse 1 U PRBC 3. Prostate ca currently on chemotx Prednisone contined no difficulties in voiding clinically Flomax on hold currently due to BP UA concerning for UTI, check urine culture 4. Acute on chronic kidney injury stable monitor urine output monitor PVR
[2018-05-12] MEDS ORDERED: PEG 3350-NA SULF,BICARB,CL/KCL 4,000 ML BOTTLE PO ONE (16:00)
[2018-05-12 17:03] LABS: Basophils % (A) 0 %; Eosinophils # (A) 0.2 k/uL (0-0.7); Eosinophils % (A) 2 %; HCT 30.3 % (39.0-53.0); HGB 9.8 gm/dL (13.0-17.5); Lymphocytes # (A) 1.5 k/uL (1.0-4.8); Lymphocytes % (A) 21 %; MCH 26.6 pg (25.0-35.0); MCHC 32.3 g/dL (31.0-37.0); MCV 82.4 fL (80.0-100.0); Mean Platelet Volume 6.3; Monocytes # (A) 0.2 k/uL (0-1.0); Monocytes % (A) 3 %; Neutrophils # (A) 5.2 k/uL (1.3-7.7); Neutrophils % (A) 73 %; Platelet Count 419 k/uL (150-450); RBC 3.67 m/uL (4.30-5.90); WBC 7.1 k/uL (3.8-10.6)
[2018-05-12] MEDS ORDERED: MIDAZOLAM 2 MG/2 ML VIAL IV PRN (18:44)
[2018-05-12] MEDS ORDERED: LIDOCAINE 1% 20 ML VIAL (10MG/ML) FOR IV START INTRADERMA PRN (18:44)
[2018-05-12] MEDS: LACTATED RINGERS 1,000 ML IV SCH (20:30)
[2018-05-13 00:36] VITALS: RESP 16
[2018-05-13] MEDS: LACTATED RINGERS 1,000 ML IV SCH ×2 (06:29→19:10)
[2018-05-13 06:43] LABS: HCT 29.2 % (39.0-53.0); HGB 9.7 gm/dL (13.0-17.5); MCH 26.7 pg (25.0-35.0); MCHC 33.2 g/dL (31.0-37.0); MCV 80.5 fL (80.0-100.0); Mean Platelet Volume 6.9; Platelet Count 437 k/uL (150-450); RBC 3.63 m/uL (4.30-5.90); RDW 14.8 % (11.5-15.5); WBC 7.8 k/uL (3.8-10.6)
[2018-05-13 07:03] LABS: Calcium 8.7 mg/dL (8.4-10.2); Potassium 3.5 mmol/L (3.5-5.1)
[2018-05-13] MEDS: PANTOPRAZOLE 40 MG/10 ML VIAL IVP SCH ×2 (09:22→20:37)
[2018-05-13] MEDS: predniSONE 5 MG TAB PO SCH (09:22)
[2018-05-13] MEDS: amLODIPine 5 MG TAB PO SCH (09:24)
[2018-05-13] MEDS: TAMSULOSIN 0.4 MG CAP.ER.24H PO SCH (09:24)
--- NOTE | 2018-05-13 09:47 | P.PN ---
Subjective Now complaint is burnning with urination radiatng to right inguinal area. Not present outside of urination. No significant straining. Lighthadedness resolved post transfusion Objective - Vital Signs Vital signs: Vital Signs Temp 96.9 F L 05/13/18 04:00 Pulse 88 05/13/18 04:00 Resp 16 05/13/18 04:00 BP 186/97 05/13/18 04:00 Pulse Ox 100 05/13/18 04:00 Intake & Output 05/12/18 05/13/18 05/13/18 18:59 06:59 18:59 Intake Total 670 20 Output Total 700 300 Balance -30 -280 Weight 80.6 kg Intake: IV 20 Invasive Line 1 20 Oral 360 Blood Product 310 Rc As-1 Unit 310 [id number] Output: Urine 700 300 Other: Voiding Method Urinal Urinal # Voids 1 - Constitutional General appearance: Present: no acute distress - EENT Eyes: Present: anicteric sclerae, EOMI, PERRLA - Respiratory Respiratory: bilateral: CTA - Cardiovascular Rhythm: regular Heart sounds: normal: S1, S2 - Gastrointestinal Gastrointestinal Comment(s): no CVA tenderness General gastrointestinal: Present: normal bowel sounds, organomegaly, soft. Absent: tenderness - Musculoskeletal Musculoskeletal: Present: gait normal, strength equal bilaterally - Psychiatric Psychiatric: Present: A&O x's 3, appropriate affect - Labs CBC & Chem 7: 05/13/18 06:17 05/13/18 06:17 Labs: Abnormal Lab Results - Last 24 Hours (Table) 05/11/18 05/12/18 05/13/18 Range/Units 11:55 16:44 06:17 RBC 3.67 L (4.30-5.90) m/uL Hgb 9.8 L (13.0-17.5) gm/dL Hct 30.3 L (39.0-53.0) % Chloride 109 H (98-107) mmol/L BUN 28 H (9-20) mg/dL Creatinine 1.27 H (0.66-1.25) mg/dL Crossmatch See Detail 05/13/18 Range/Units 06:17 RBC 3.63 L (4.30-5.90) m/uL Hgb 9.7 L (13.0-17.5) gm/dL Hct 29.2 L (39.0-53.0) % Chloride (98-107) mmol/L BUN (9-20) mg/dL Creatinine (0.66-1.25) mg/dL Crossmatch Microbiology - Last 24 Hours (Table) 05/12/18 07:55 Urine Culture - Preliminary Urine,Voided Assessment and Plan Plan: 1. Acute GI bleed cont H&H surrvailance EGD/colonoscopy 2. Acute anemia of blood loss, symptomatic s/p 1 U PRBC with elevation of Hb in expected range and maintained stable lightheadedness has resolved 3. Prostate ca currently on chemotx Prednisone contined no difficulties in voiding clinically Flomax restarted 4. UTI non toxic non septic no flank tenderness no colicky pain or hematuria start Ceftriaxone today empirically urine cxpending 4. Acute on chronic kidney injury stable, improving electrolytes stable urine output satisfacotry monitor urine output monitor PVR 5. Elevated BP r/o HTN Amlodipine started but will reassess need prior discharge 6. Acte debility PT/OT
[2018-05-13] MEDS ORDERED: cefTRIAXone 1,000 MG VIAL (IM USE) IM SCH (10:00)
[2018-05-13] MEDS ORDERED: LIDOCAINE 1% INJ 10MG/ML (20 ML MDV) ONE (14:15)
[2018-05-13] MEDS ORDERED: PROPOFOL 10 MG/ML 20 ML VIAL IV ONE (14:15)
[2018-05-13] MEDS ORDERED: IV FLUID CONTINUATION 1,000 ML IV ONE ×2 (14:24)
--- NOTE | 2018-05-13 14:59 | P.PCN ---
Date of Procedure: 05/13/18 Procedure(s) Performed: Procedure: 1. Esophagogastroduodenoscopy. 2. Total colonoscopy. Preoperative diagnosis: GI bleeding and anemia. Postoperative diagnosis: 1. Hiatal hernia and Waite's esophagus but no evidence of active bleeding or potential sources of bleeding on upper endoscopy. 2. Left-sided diverticulosis with no evidence of acute diverticulitis or strictures. 3. No other potential sources of bleeding in the colon and I suspect this was a direticular bleeding that subsided spontaneously. Preparation: GoLYTELY prep. Sedation: Was provided by anesthesia. Brief clinical history: The patient is an 83-year-old male recently diagnosed with metastatic prostate carcinoma status post lymph node biopsy 04/22/2018 maintained on chemotherapy and steroids without radiation. Additional past medical includes history of colonic diverticulosis per CT in 2016, dysphagia and abnormal MRCP 2017 status post EGD last May showing long segment of Waite's esophagus but no evidence of ampullary mass. He presented with increased weakness, fatigue, painless red clot blood-tinged bowel movements. No history of peptic ulcer disease. Last colonoscopy more than 10 years ago. Denies NSAIDs other than a baby aspirin daily. Admission hemoglobin 10.2 decreased to 8.8 without blood transfusion. Previous hemoglobin one month ago 15.2. Other details are summarized in the history and physical and dictated consultations and progress notes. Procedure: With the patient on his left lateral decubitus position and after informed consent and adequate sedation, I passed the Olympus-GIF 160 video upper endoscope through the cricopharyngeus down the esophagus. GE junction was irregular and started around 34 cm from the incisors and the tubular esophagus extended to around 38-39 cm. The endoscope was then advanced through a moderately sized hiatal hernia into the stomach which was insufflated with air and inspected in detail including the retroflex view in the cardia. Finally , the endoscope was passed through the pylorus into the duodenum. The stomach, pyloric channel, duodenal bulb, post bulbar area and descending duodenum appeared healthy with no ulcers or bleeding. The esophagus did not show any evidence of esophagitis, mucosal tear, esophageal varices or bleeding. No biopsies were indicated and I proceeded with the colonoscopy. Perianal area did not show any fissures or fistulas. There were no masses felt on digital rectal examination. The Olympus CFQ 160L video colonoscope was then inserted in the rectum in the usual fashion and advanced to the cecum. There were multiple diverticular orifices seen scattered in the sigmoid and left colon but I saw no evidence of active bleeding. The mucosa appeared healthy. No polyps or tumors were seen or any obvious angiodysplasias or other potential sources of bleeding. Low-grade internal hemorrhoids were noted upon withdrawing the endoscope. The patient tolerated the procedure well. Plan: The patient was reassured. I suspect his bleeding was related to diverticular bleed that spontaneously subsided. Will allow regular diet as tolerated and continue to monitor his progress. We will discuss with you and follow with you with interest.
[2018-05-13] MEDS: cefTRIAXone IN SWFI 1,000 MG/10 ML SYRINGE IVP SCH (19:10)
[2018-05-14] MEDS: LACTATED RINGERS 1,000 ML IV SCH (03:27)
[2018-05-14 06:03] LABS: HCT 30.1 % (39.0-53.0); HGB 9.9 gm/dL (13.0-17.5); MCH 26.7 pg (25.0-35.0); MCV 80.7 fL (80.0-100.0); Mean Platelet Volume 6.6; Platelet Count 445 k/uL (150-450); RBC 3.73 m/uL (4.30-5.90); RDW 15.1 % (11.5-15.5); WBC 8.5 k/uL (3.8-10.6)
[2018-05-14 06:15] LABS: Calcium 8.7 mg/dL (8.4-10.2); Potassium 3.3 mmol/L (3.5-5.1)
[2018-05-14] MEDS: cefTRIAXone IN SWFI 1,000 MG/10 ML SYRINGE IVP SCH (09:33)
[2018-05-14] MEDS: predniSONE 5 MG TAB PO SCH (09:33)
[2018-05-14] MEDS: amLODIPine 5 MG TAB PO SCH (09:33)
[2018-05-14] MEDS: TAMSULOSIN 0.4 MG CAP.ER.24H PO SCH (09:33)
[2018-05-14] MEDS: PANTOPRAZOLE 40 MG/10 ML VIAL IVP SCH (09:33)
--- NOTE | 2018-05-14 09:49 | P.PN ---
Subjective Progress Note Date: 05/14/18 Principal diagnosis: Hematochezia Status post EGD colonoscopy findings of Hartley's esophagus and colonic diverticular disease. No active bleeding. Hemoglobin stable. Tolerating diet. Objective - Vital Signs Vital signs: Vital Signs Temp 97.3 F L 05/14/18 04:00 Pulse 75 05/14/18 04:00 Resp 16 05/14/18 04:00 BP 187/92 05/14/18 04:00 Pulse Ox 99 05/14/18 04:00 Intake & Output 05/13/18 05/14/18 05/14/18 18:59 06:59 18:59 Intake Total 690 0 Output Total 1700 650 Balance -1010 -650 0 Weight 81.5 kg Intake: IV 450 Oral 240 0 Output: Urine 1700 650 Other: Voiding Method Urinal Urinal # Bowel Movements 9 1 - Exam General appearance: The patient is alert, oriented, in no acute distress. Hard of hearing. HET: Head is normocephalic and atraumatic. Pupils are equal and reactive. Oropharynx is clear without lesions. Neck: Supple without lymphadenopathy. Trachea midline. Heart: S1 S2. Regular rate and rhythm. Lungs: No crackles or wheezes are heard. Abdomen: Soft, nontender, nondistended with bowel sounds. No peritoneal signs. No palpable organomegaly or masses. Extremities: Normal skin color and turgor. No cyanosis, rash, ulceration, clubbing, or edema. Radial and pedal pulses are 2/4 bilaterally. Neurological: No focal deficits. Strength and sensation are grossly intact. - Labs CBC & Chem 7: 05/14/18 05:39 05/14/18 05:39 Labs: Abnormal Lab Results - Last 24 Hours (Table) 05/14/18 05/14/18 Range/Units 05:39 05:39 RBC 3.73 L (4.30-5.90) m/uL Hgb 9.9 L (13.0-17.5) gm/dL Hct 30.1 L (39.0-53.0) % Potassium 3.3 L (3.5-5.1) mmol/L Chloride 108 H (98-107) mmol/L Creatinine 1.34 H (0.66-1.25) mg/dL Microbiology - Last 24 Hours (Table) 05/12/18 07:55 Urine Culture - Preliminary Urine,Voided Gram Neg Bacilli Assessment and Plan (1) Hematochezia Narrative/Plan: Colonic diverticular bleed resolved Current Visit: Yes Status: Acute Code(s): K92.1 - MELENA SNOMED Code(s): 012390355 (2) Acute blood loss anemia Current Visit: Yes Status: Acute Code(s): D62 - ACUTE POSTHEMORRHAGIC ANEMIA SNOMED Code(s): 434627651 (3) Prostate cancer Current Visit: Yes Status: Acute Code(s): C61 - MALIGNANT NEOPLASM OF PROSTATE SNOMED Code(s): 749513891 (4) Barretts esophagus Current Visit: Yes Status: Acute Code(s): K22.70 - HARTLEY'S ESOPHAGUS WITHOUT DYSPLASIA SNOMED Code(s): 794881857 Plan: 1. Discharge per medicine. No further workup. Return to office in 3-4 weeks for reevaluation. Will follow as needed. Assessment and plan of care with Dr. Cam
[2018-05-14] MEDS ORDERED: MAGNESIUM OXIDE 400 MG TAB PO STA (11:00)
[2018-05-14] MEDS ORDERED: POTASSIUM CHLORIDE ER 10 MEQ TAB.ER.PRT PO STA (11:00)
--- NOTE | 2018-05-14 11:00 | P.PN ---
Subjective Doing well today. No further bleedng. Hb stable. No orthostatic lightheadedness. Tolerated regular diet well Still some dysuria with urination but improving. No falnk pain, no fever, nausea or vomiting. Suprapubic discomfort with urination only and much better today. He has some strianing but generaly he has been able to void good amount of urine each time. On urgency. Urine cx growing GNB. No hematuria. he has follow up appointment with urologist on 05/28. No ddifficutlies in ambulation, no back pain. Urine output 1700 cc yesterday Objective - Vital Signs Vital signs: Vital Signs Temp 97.3 F L 05/14/18 04:00 Pulse 75 05/14/18 04:00 Resp 16 05/14/18 04:00 BP 187/92 05/14/18 04:00 Pulse Ox 99 05/14/18 04:00 Intake & Output 05/13/18 05/14/18 05/14/18 18:59 06:59 18:59 Intake Total 690 0 Output Total 1700 650 Balance -1010 -650 0 Weight 81.5 kg Intake: IV 450 Oral 240 0 Output: Urine 1700 650 Other: Voiding Method Urinal Urinal # Bowel Movements 9 1 - Constitutional General appearance: Present: cooperative, no acute distress - EENT Eyes: Present: anicteric sclerae, EOMI, PERRLA - Neck Neck: Present: normal ROM. Absent: lymphadenopathy - Respiratory Respiratory: bilateral: CTA - Cardiovascular Rhythm: regular Heart sounds: normal: S1, S2 - Gastrointestinal General gastrointestinal: Present: normal bowel sounds, soft. Absent: organomegaly, tenderness - Integumentary Integumentary: Absent: cellulitis, cyanotic, pale - Neurologic Neurologic: Present: CNII-XII intact. Absent: focal deficits - Musculoskeletal Musculoskeletal: Present: strength equal bilaterally - Psychiatric Psychiatric: Present: A&O x's 3, appropriate affect, intact judgment & insight - Allied health notes Allied health notes reviewed: case management - Labs CBC & Chem 7: 05/14/18 05:39 05/14/18 05:39 Labs: Abnormal Lab Results - Last 24 Hours (Table) 05/14/18 05/14/18 Range/Units 05:39 05:39 RBC 3.73 L (4.30-5.90) m/uL Hgb 9.9 L (13.0-17.5) gm/dL Hct 30.1 L (39.0-53.0) % Potassium 3.3 L (3.5-5.1) mmol/L Chloride 108 H (98-107) mmol/L Creatinine 1.34 H (0.66-1.25) mg/dL Microbiology - Last 24 Hours (Table) 05/12/18 07:55 Urine Culture - Preliminary Urine,Voided Gram Neg Bacilli Assessment and Plan Plan: 1. Acute GI bleed Hb stable Colonoscopy/EGD results reviewed tolerated diet cleared for dc by GI 3. Prostate ca discharge home on usual chemotherapy Flomax restarted 4. UTI non toxic non septic no flank tenderness no colicky pain or hematuria start Ceftriaxone today empirically Urine cx GNB will dc on Ceftin for 5 days 4. Acute on chronic kidney injury stable electrolytes stable urine output exellent To repeat BMP in 1 week keep hydrated 5. Elevated BP will discharge without BP meds for now and close follow up with PCP 6. Mild hypokalemia, 3.3 due to decreased po intake, diarrhea from laxatives will replace with Klyte and po magnesium 6. Acte debility PT/OT 7. OK for discharge from medicine stand point, discussed ith CM. pt is motivated for discharge and to go home. Will need to evaluate plan with the daughter Time with Patient: Greater than 30
[2018-05-14 11:31] VITALS: TEMP 97.8
--- NOTE | 2018-05-14 12:07 | P.DS ---
Providers Date of admission: 05/11/18 12:48 Attending physician: Tegan Cope DO Consults: Dr. Meraz Gastroenter[facility] Primary care physician: Candy Kruse - Discharge Diagnosis(es) (1) GI bleed Patient was admitted and serial hemoglobin was ordered. Gastroenterology was consulted. No further active GI bleeding was observed during hospital stay. Gastroenterology proceeded with EGD and colonoscopy. EGD was unremarkable and colonoscopy shows some chronic diverticular disease. Impression by gastroenterology was that this is most likely one time particular bleeding. Patient tolerated the procedure well. He was started on a regular diet which tolerated well. His hemoglobin was stable and he was clear for discharge by gastroenterology. Current Visit: Yes Status: Acute Priority: High (2) Acute blood loss anemia This was due to acute GI bleed which was felt to be lower GI bleed. Hemoglobin on admission was in the range of 9. Month prior to that hemoglobin was 15.4. Serial hemoglobin was ordered. Hemoglobin came down to 8.8 and Stieber lies at that point. Patient was feeling tired and fatigued and dizzy when standing up. In view of that 1 unit of PRBC was transfused. After which his hemoglobin increased to 9.8 and stayed stable in that range. Patient's orthostatic dizziness resolved. Current Visit: Yes Status: Acute Priority: High (3) UTI (urinary tract infection) During hospital stay patient complained of urinary frequency and dysuria with urination. He has prostate cancer and large prostate and obstructive problems in view of that. Patient was nontoxic and nonseptic. There was no leukocytosis and tachycardia or fever. There was no flank tenderness there was no significant suprapubic or left or right lower quadrant tenderness his abdomen was benign. UA showed large leukocyte esterase lots of WBCs and bacteria. Urine culture was drawn and was growing gram-negative bacilli no specific at the time of discharge. Patient was started on ceftriaxone and received 2 doses of this antibiotic and was discharge on Ceftin for 5 days. He is pending urinary culture final results and this will be followed an outpatient basis as in case he needs to adjust his antibiotics. Current Visit: Yes Status: Acute Priority: Medium (4) Prostate cancer Patient was diagnosed recently with the prostate cancer. He is on chemotherapy and prednisone. Prednisone was continued without stress dose of prednisone. He was discharged on his usual regimen. He has follow-up appointment with his urologist on 05/28/2018 and also follow-up with the oncologist. Patient did not have any significant urinary retention. He does have some straining with urination but was able to void good amount of urine every time. He'll follow- up on this with his urologist. We continued his Flomax. Current Visit: Yes Status: Chronic Priority: Medium (5) [id number] kidney injury Patient had mild elevation of creatinine the range of 1.34-1.27 range. This stays stable. He is electrolytes and bicarbonate was stable. He was voiding up to 2 L of urine a day. He did not have significant urinary retention. We will recommend patient to follow up with his urologist regarding any possible obstructive changes and possibly ultrasound of the kidneys not done already. He is to repeat BMP in 1 week. Current Visit: Yes Status: Acute Priority: Medium (6) Elevated blood pressure reading Patient blood pressure has been elevated in the range of 150 to 18T during this hospital stay. He remained symptomatically without any headache vision change or chest pain or shortness of breath. He was given 1 time of amlodipine in anticipation of colonoscopy and conscious sedation. Otherwise no treatment was provided the time of discharge a history of follow-up with blood pressure checks with his PCP. Would recommend checking blood pressure in the doctor's office in one week Current Visit: Yes Status: Acute Priority: Medium Hospital Course: Reason for admission: 1. Bright red blood in stool X Discharge diagnosis 1. Hematochezia 2. Acute anemia blood loss 3. Acute on chronic kidney injury 4. Urinary tract infection 5. Prostate cancer 6. Elevated blood pressure Pertinent Studies: Hemoglobin at discharge 9.8 Creatinine time of discharge 1.34 Procedures: EGD and colonoscopy on 05/13/2018: No significant abnormalities on EGD Colonoscopy showed some chronic old diverticular disease without any active bleeding Patient Condition at Discharge: Good Plan - Discharge Summary Discharge Rx Participant: No New Discharge Prescriptions: New Pantoprazole [Protonix] 40 mg PO DAILY #2 tablet. Cefuroxime Axetil [Ceftin] 500 mg PO BID #10 tab Ferrous Sulfate [Iron] 325 mg PO BID-W/MEALS #60 tablet Continue Tamsulosin HCl [Flomax] 0.4 mg PO DAILY Multivitamins, Thera [Multivitamin (formulary)] 1 tab PO DAILY predniSONE 5 mg PO DAILY Abiraterone Acetate [Zytiga] 1,000 mg PO BID Discontinued Aspirin EC [Ecotrin Low Dose] 81 mg PO DAILY Discharge Medication List Tamsulosin HCl [Flomax] 0.4 mg PO DAILY 09/25/14 [History] Multivitamins, Thera [Multivitamin (formulary)] 1 tab PO DAILY 04/07/18 [History ] Abiraterone Acetate [Zytiga] 1,000 mg PO BID 05/11/18 [History] predniSONE 5 mg PO DAILY 05/11/18 [History] Cefuroxime Axetil [Ceftin] 500 mg PO BID #10 tab 05/14/18 [Rx] Ferrous Sulfate [Iron] 325 mg PO BID-W/MEALS #60 tablet 05/14/18 [Rx] Pantoprazole [Protonix] 40 mg PO DAILY #2 tablet. 05/14/18 [Rx] Follow up Appointment(s)/Referral(s): Franco Gill MD [STAFF PHYSICIAN] - 1 Week (new diagnosis of prostate cancer ) Aries Cam MD [STAFF PHYSICIAN] - 06/11/18 4:45 pm Candy Kruse DO [Primary Care Provider] - 05/21/18 10:00 am () Activity/Diet/Wound Care/Special Instructions: preadmission acitivity and diet BMP in 1 week BP check in 1 week
--- NOTE | 2018-05-14 13:31 | CDI ---
Last Revision, September 2017 Documentation Clarification Form Date: 05/14/18 From: Velvet Pedersen RN, CCDS Admit Date: 05/11/2018 12:48:00 PM Patient Name: Fito Lr Visit Number: [id number] Discharge Date: ATTENTION: The Clinical Documentation Specialists (CDI) and [facility] Coding Staff appreciate your assistance in clarifying documentation. Please respond to the clarification below the line at the bottom and electronically sign. The CDI & [facility] Coding staff will review the response and follow-up if needed. Please note: Queries are made part of the Legal Health Record. If you have any questions, please contact the author of this message via ITS. Jeffry Douglas MD History/Risk Factors: Prostate cancer on oral chemotherapy, GI Bleeding, Liver Disease, Clinical Indicators: Present with episode of bright red rectal bleeding. He does feel lightheaded and somewhat fatigued. On admission BUN 38, CR 1.30, GFR 50 Current BUN 19, CR 1.34 GFR 48 Patients Baseline: BUN/CR/GFR: 1.34-1.27 (per discharge summary) Treatment: Monitor Labs IVF In order to capture the severity of condition, please clarify if the condition signifies: CKD Stage 1 (GFR > 90) CKD Stage 2 (GFR 60-89) CKD Stage 3 (GFR 30-59) CKD Stage 4 (GFR 15-29) CKD Stage 5 (GFR <15) ESRD Other, please specify Unable to determine Please continue to document in your progress notes and discharge summary in order to capture severity of illness and risk of mortality. Include clinical findings that support your diagnosis. CKD stage 3 MTDD
[2018-05-14 15:30] VITALS: BP 186/82; PULSE 73
[2018-05-15] MEDS ORDERED: PANTOPRAZOLE 40 MG TABLET PO SCH (07:30)
== END 2018-05-14 15:00 | disposition home or self-care (01) | DRG 378 ==
LOC: EC 11:14 → 6SEL 12:48
PROVIDERS: ADMIT Internal Medicine; ATTEND Internal Medicine
PROC: 30233N1 Transfusion of Nonautologous Red Blood Cells into Peripheral Vein, Percutaneous Approach (ICD-10-PCS; 2018-05-12)
PROC: 0DJ08ZZ Inspection of Upper Intestinal Tract, Via Natural or Artificial Opening Endoscopic (ICD-10-PCS; principal; 2018-05-13 13:30)
PROC: 0DJD8ZZ Inspection of Lower Intestinal Tract, Via Natural or Artificial Opening Endoscopic (ICD-10-PCS; 2018-05-13 13:30)
DX: K57.31 Diverticulosis of large intestine without perforation or abscess with bleeding (principal); D62 Acute posthemorrhagic anemia; E44.0 Moderate protein-calorie malnutrition; N17.9 Acute kidney failure, unspecified; N39.0 Urinary tract infection, site not specified; C61 Malignant neoplasm of prostate; E87.6 Hypokalemia; H91.90 Unspecified hearing loss, unspecified ear; K22.70 Barrett's esophagus without dysplasia; K44.9 Diaphragmatic hernia without obstruction or gangrene; K64.8 Other hemorrhoids; N40.0 Benign prostatic hyperplasia without lower urinary tract symptoms; R62.7 Adult failure to thrive; M19.90 Unspecified osteoarthritis, unspecified site; R03.0 Elevated blood-pressure reading, without diagnosis of hypertension; N18.3 Chronic kidney disease, stage 3 (moderate); Z87.891 Personal history of nicotine dependence; Z79.82 Long term (current) use of aspirin; Z79.52 Long term (current) use of systemic steroids; Z79.899 Other long term (current) drug therapy; Z85.51 Personal history of malignant neoplasm of bladder; Z87.11 Personal history of peptic ulcer disease; Z90.49 Acquired absence of other specified parts of digestive tract; Z82.49 Family history of ischemic heart disease and other diseases of the circulatory system
CPT/HCPCS: 36415; 43235; 45378; 80048; 80053; 81001; 82550; 82553; 83605; 83735; 84484; 85025; 85027; 85610; 85730; 86850; 86900; 86901; 86920; 87077; 87086; 87186; 96361; 96374; 99285

== ENCOUNTER → 2018-08-06 | Outpatient (CLI) | payer MEDICARE ==
--- NOTE | 2018-08-06 09:04 | MR ---
EXAMINATION TYPE: MR brain wo/w con DATE OF EXAM: 08/06/2018 COMPARISON: NONE HISTORY: 83-year-old male recent onset of seizures, prostate cancer TECHNIQUE: Multiplanar, multisequence images of the brain and brainstem were acquired before and aft er administration of 8.5 mL IV Gadavist. Diffusion weighted imaging is performed. Fast brain protoc ol was utilized as the patient was claustrophobic. FINDINGS: No evidence for acute infarction, hemorrhage, mass, mass effect, midline shift, herniation, effacemen t of basal cisterns, or extra-axial fluid collection. There is moderate generalized supratentorial volume loss. Secondary mild ventriculomegaly. There is no abnormal increased signal in the region of the mesial temporal lobes or asymmetric hippoc ampal volume loss. Major intracranial flow voids are intact. T2/FLAIR weighted sequences show moderate to severe patchy burden of white matter change in the subco rtical, deep, and periventricular regions of both cerebral hemispheres. Prominent perivascular space in the left frazier radiata. Midline structures demonstrate normal morphology. The craniocervical junction is normal. Post contrast images demonstrate no evidence of pathologic enhancement. Dural venous sinuses are pat ent. Trace mucosal thickening maxillary sinuses. Globes are intact. IMPRESSION: There is moderate generalized cerebral atrophy and secondary mild prominence to the ventricular syste m. Additional moderate to severe patchy burden of chronic small vessel ischemic disease. No acute int racranial abnormality or evidence for brain metastases.
== END ==
LOC: RADMRIMAIN 06:52
PROVIDERS: ATTEND Urology
DX: G31.9 Degenerative disease of nervous system, unspecified (principal); I67.82 Cerebral ischemia
CPT/HCPCS: 70553; A9585

== ENCOUNTER → 2021-07-16 | Outpatient (CLI) | payer MEDICARE ==
--- NOTE | 2021-07-16 15:29 | NM ---
EXAMINATION TYPE: NM bone scan whole body DATE OF EXAM: 07/16/2021 COMPARISON: 03/26/2017 HISTORY: Prostate cancer Delayed whole-body scanning was performed following the injection of 23.4 mCi Tc 99m MDP. Images acq uired 3 hours post injection. FINDINGS: Stable abnormal uptake involving the shoulders and sternum. Soft tissue uptake involving the perineum likely related to examination. Faint abnormal uptake in the midthoracic region stable likely degener ative. Faint abnormal uptake involving the feet likely post arthritic. IMPRESSION: 1. Stable bone scan no diagnostic evidence
== END | disposition home or self-care (01) ==
LOC: RADNMMAIN 10:58
PROVIDERS: ATTEND Internal Medicine Hematology & Oncology
DX: C61 Malignant neoplasm of prostate (principal)
CPT/HCPCS: 78306; A9503

== ENCOUNTER 2022-05-11 21:57 | Inpatient (IN) | payer MEDICARE ==
[2022-05-11] MEDS ORDERED: MORPHINE SULFATE 4 MG/ML SYRINGE IV STA (22:27)
[2022-05-11] MEDS ORDERED: SODIUM CHLORIDE 0.9% 1,000 ML IV STA (22:27)
[2022-05-11] MEDS ORDERED: SODIUM CHLORIDE 0.9% 500 ML 500 ML IV STA (22:27)
[2022-05-11] MEDS ORDERED: SODIUM CHLORIDE 0.9% 1,000 ML IV SCH (22:30)
[2022-05-11] MEDS ORDERED: NALOXONE 0.4 MG/ML 1 ML VIAL IV PRN (22:30)
[2022-05-11] MEDS ORDERED: ACETAMINOPHEN TAB 325 MG TAB PO PRN (22:30)
--- NOTE | 2022-05-11 22:30 | ED ---
General Adult HPI - General Chief complaint: Weakness Stated complaint: Weakness, Constipation, Cancer Patient Time Seen by Provider: 05/11/22 22:13 Source: patient Mode of arrival: ambulatory Limitations: no limitations - History of Present Illness Initial comments: Dictation was produced using Revelation dictation software. please excuse any grammatical, word or spelling errors. Chief Complaint: 87-year-old male presents emergency department for weakness and pain History of Present Illness: In his 87-year-old male he is on hospice. He is brought in by daughter and other family member for weakness, intractable pain. Patient has a history of prostate cancer. He has undergone several rounds of chemotherapy. Family and patient decided that he is hospice and now is DO NOT RESUSCITATE. We are not pursuing any more treatments. Patient stated at home and has been having worsening weakness and intractable pain. He is postop a follow-up appointment with hospice in one week however family does not feel that patient can wait that long. Patient has no other complaints except for his acute on chronic back pain that is presumed to be secondary to his prostate cancer. Family feels that patient is too weak to be cared for at home The ROS documented in this emergency department record has been reviewed and confirmed by me. Those systems with pertinent positive or negative responses have been documented in the HPI. All other systems are other negative and/or noncontributory. PHYSICAL EXAM: General Impression: Alert and oriented x3, not in acute distress HEENT: Normocephalic atraumatic, extra-ocular movements intact, pupils equal and reactive to light bilaterally, mucous membranes moist. Cardiovascular: Heart regular rate and rhythm Chest: Able to complete full sentences, no retractions, no tachypnea Abdomen: abdomen soft, non-tender, non-distended, no organomegaly Musculoskeletal: Pulses present and equal in all extremities, no peripheral edema Motor: no focal deficits noted Neurological: CN II-XII grossly intact, no focal motor or sensory deficits noted Skin: Intact with no visualized rashes Psych: Normal affect and mood ED course: 87-year-old well-appearing male presents to the emergency department for worsening weakness and intractable cancer pain. Patient is hospice and DO NOT RESUSCITATE, DO NOT INTUBATE. Upon arrival are within acceptable limits. His brought to the emergency department for admission for grave disability and intractable pain. Patient given IV fluids and IV analgesics. He'll be admitted with consultation to hospice. Patient will have when necessary IV analgesics ordered. - Related Data Home Medications Medication Instructions Recorded Confirmed Tamsulosin HCl [Flomax] 0.4 mg PO DAILY 09/25/14 05/11/18 Multivitamins, Thera [Multivitamin 1 tab PO DAILY 04/07/18 05/11/18 (formulary)] Abiraterone Acetate [Zytiga] 1,000 mg PO BID 05/11/18 05/11/18 predniSONE 5 mg PO DAILY 05/11/18 05/11/18 Previous Rx's Medication Instructions Recorded Ferrous Sulfate [Iron] 325 mg PO BID-W/MEALS #60 tablet 05/14/18 Pantoprazole [Protonix] 40 mg PO DAILY #2 tablet. 05/14/18 cefUROXime axetiL [Ceftin] 500 mg PO BID #10 tab 05/14/18 Allergies Allergy/AdvReac Type Severity Reaction Status Date / Time No Known Allergies Allergy Verified 05/11/22 22:08 Review of Systems ROS Statement: Those systems with pertinent positive or pertinent negative responses have been documented in the HPI. ROS Other: All systems not noted in ROS Statement are negative. Past Medical History Past Medical History: Cancer, GI Bleed, Hearing Disorder / Deafness, Liver Disease, Osteoarthritis (OA), Prostate Disorder Additional Past Medical History / Comment(s): PUD/bleeding ulcer/BPH, prostate cancer, bladder cancer, past sbo, History of Any Multi-Drug Resistant Organisms: None Reported Past Surgical History: Bladder Surgery, Bowel Resection Additional Past Surgical History / Comment(s): upper endoscopy, colonoscopy,exp lap,BOWEL RESECTION Past Anesthesia/Blood Transfusion Reactions: No Reported Reaction Past Psychological History: No Psychological Hx Reported Smoking Status: Light tobacco smoker Past Alcohol Use History: Rare Past Drug Use History: None Reported - Past Family History Father Family Medical History: No Reported History, COPD, Vascular Disorder Additional Family Medical History / Comment(s): age 59 cerebral anuerysm Mother Family Medical History: No Reported History Brother(s) Family Medical History: Coronary Artery Disease (CAD) Additional Family Medical History / Comment(s): at age 48 massive mi Sister(s) Family Medical History: No Reported History Daughter(s) Family Medical History: No Reported History General Exam Limitations: no limitations Course Vital Signs 05/11/22 22:05 Temperature 97.6 F Pulse Rate 113 H Respiratory 20 Rate Blood Pressure 106/69 O2 Sat by Pulse 98 Oximetry Disposition Clinical Impression: Weakness, Gravely disabled, Intractable pain Disposition: ADMITTED IP TO THIS HOSP Condition: Fair Referrals: Olga Palafox MD [Primary Care Provider] - 1-2 days Decision Time: 22:29
[2022-05-11 23:22] LABS: Basophils % (A) 0 %; Eosinophils # (A) 0.1 k/uL (0-0.7); Eosinophils % (A) 1 %; HCT 33.3 % (39.0-53.0); HGB 10.6 gm/dL (13.0-17.5); Lymphocytes # (A) 0.7 k/uL (1.0-4.8); Lymphocytes % (A) 6 %; MCH 26.6 pg (25.0-35.0); MCHC 31.8 g/dL (31.0-37.0); MCV 83.4 fL (80.0-100.0); Mean Platelet Volume 7.3; Monocytes # (A) 0.2 k/uL (0-1.0); Monocytes % (A) 2 %; Neutrophils # (A) 10.6 k/uL (1.3-7.7); Neutrophils % (A) 91 %; Platelet Count 399 k/uL (150-450); RBC 3.99 m/uL (4.30-5.90); RDW 14.8 % (11.5-15.5); WBC 11.6 k/uL (3.8-10.6)
[2022-05-11 23:31] LABS: Calcium 8.9 mg/dL (8.4-10.2)
[2022-05-11 23:45] LABS: Potassium 6.8 mmol/L (3.5-5.1)
[2022-05-12] MEDS ORDERED: SODIUM POLYSTYRENE SULFONATE 15 GM/60 ML BOTTLE PO ONE (00:08)
[2022-05-12] MEDS ORDERED: DEXTROSE 50% SYRINGE 50 ML IVP ONE (00:08)
[2022-05-12] MEDS ORDERED: INSULIN REGULAR 100 UNIT/ML VIAL (IV) IV ONE (00:08)
[2022-05-12] MEDS ORDERED: ALBUTEROL NEB (CONC) 2.5 MG/0.5 ML INHALATION ONE (00:08)
[2022-05-12] MEDS ORDERED: CALCIUM GLUCONATE IN NACL 1 GM in SALINE 1 100ML.BAG IVPB ONE (00:08)
--- NOTE | 2022-05-12 00:08 | ED ---
Medical Decision Making - Medical Decision Making Laboratory Evaluation obtained. CBC within acceptable limits potassium level .8. EKG does not show any evidence to suggest toxic hyperkalemia. Creatinine is 9.95 and BUN is 97. Nonetheless patient is given hyperkalemia cocktail. Nephrology was consulted for further treatment. - Lab Data Result diagrams: 05/11/22 23:16 05/11/22 23:16 Disposition Clinical Impression: Weakness, Gravely disabled, Intractable pain Disposition: ADMITTED IP TO THIS [facility] Condition: Fair
[2022-05-12] MEDS: MORPHINE SULFATE 4 MG/ML SYRINGE IV PRN ×3 (03:15→11:41)
[2022-05-12 06:46] LABS: Calcium 8.8 mg/dL (8.4-10.2); Potassium 5.9 mmol/L (3.5-5.1)
[2022-05-12 06:52] LABS: Glucose,Whole Blood 127 mg/dL (70-110)
[2022-05-12] MEDS: ONDANSETRON 4 MG/2 ML VIAL IVP PRN ×2 (07:16→12:48)
[2022-05-12] MEDS ORDERED: DEXTROSE 5% IN WATER 1,000 ML with SODIUM BICARB (1 MEQ/ML) 150 ML IV SCH (07:30)
[2022-05-12 08:18] VITALS: RESP 12
--- NOTE | 2022-05-12 08:24 | P.NPCON ---
History of Present Illness - Reason for Consult hyperkalemia - History of Present Illness Patient is an 87-year-old male with history of metastatic prostate cancer. Patient was actually in hospice and was admitted with increased weakness. Patient is noted to have a potassium of 6.9 and serum creatinine of 10. CO2 was 12. Patient has not had much urine output. Blood pressure has not been low Patient received a dose of Kayexalate and IV cocktail for hyperkalemia Previous creatinine 1.3 on 09/20/2021 Patient states that he does not want any aggressive treatment and "wants to leave this Earth". he has refused any renal replacement therapy Review of Systems as per HPI Past Medical History Past Medical History: Cancer, GI Bleed, Hearing Disorder / Deafness, Liver Disease, Osteoarthritis (OA), Prostate Disorder Additional Past Medical History / Comment(s): PUD/bleeding ulcer/BPH, prostate cancer, bladder cancer, past sbo, History of Any Multi-Drug Resistant Organisms: None Reported Past Surgical History: Bladder Surgery, Bowel Resection Additional Past Surgical History / Comment(s): upper endoscopy, colonoscopy,exp lap,BOWEL RESECTION Past Anesthesia/Blood Transfusion Reactions: No Reported Reaction Past Psychological History: No Psychological Hx Reported Additional Psychological History / Comment(s): pt's daughter and her family live with pt. He is independent. Pt drives a car.no home care services reieved, no medical equipment used. Smoking Status: Former smoker Past Alcohol Use History: Rare Additional Past Alcohol Use History / Comment(s): smoked from 1946 to 1974- 2 ppd. Past Drug Use History: None Reported Additional Drug Use History / Comment(s): used cocaine in the - Past Family History Father Family Medical History: No Reported History, COPD, Vascular Disorder Additional Family Medical History / Comment(s): age 59 cerebral anuerysm Mother Family Medical History: No Reported History Brother(s) Family Medical History: Coronary Artery Disease (CAD) Additional Family Medical History / Comment(s): at age 48 massive mi Sister(s) Family Medical History: No Reported History Daughter(s) Family Medical History: No Reported History Medications and Allergies Home Medications Medication Instructions Recorded Confirmed Type Tamsulosin HCl [Flomax] 0.4 mg PO DAILY 09/25/14 05/11/18 History Multivitamins, Thera [Multivitamin 1 tab PO DAILY 04/07/18 05/11/18 History (formulary)] Abiraterone Acetate [Zytiga] 1,000 mg PO BID 05/11/18 05/11/18 History predniSONE 5 mg PO DAILY 05/11/18 05/11/18 History Ferrous Sulfate [Iron] 325 mg PO BID-W/MEALS #60 tablet 05/14/18 Rx Pantoprazole [Protonix] 40 mg PO DAILY #2 tablet. 05/14/18 Rx cefUROXime axetiL [Ceftin] 500 mg PO BID #10 tab 05/14/18 Rx Allergies Allergy/AdvReac Type Severity Reaction Status Date / Time No Known Allergies Allergy Verified 05/11/22 22:08 Physical Exam Vitals: Vital Signs Temp Pulse Pulse Resp BP BP Pulse Ox 05/12/22 06:50 98.1 F 109 H 14 145/79 96 05/12/22 03:16 99 16 143/81 95 05/11/22 22:05 97.6 F 113 H 20 106/69 98 Intake and Output 05/11/22 05/12/22 05/12/22 22:59 06:59 14:59 Other: Weight 78.018 kg 78.018 kg awake, comfortable, not in any acute distress Examination of the heart S1 and S2 Examination lungs bilateral breath sounds are heard Abdomen is soft nontender Examination of the lower extremities shows no evidence of edema [place] [employer] exam grossly intact Results - Lab Results Most recent lab results Calcium 8.8 mg/dL (8.4-10.2) 05/12/22 05:37 05/11/22 23:16 05/12/22 05:37 Assessment and Plan Assessment: 1. Acute kidney injury possibly obstructive versus ATN. No plans for renal replacement therapy. 2. Hyperkalemia associated with acute kidney injury and metabolic acidosis 3. Non-gap metabolic acidosis secondary to renal failure as well as possible underlying obstructive uropathy 4. Chronic kidney disease NKF stage III a with previous creatinine around 1.3 mg/dL 5. Metastatic prostatic cancer, details not known Plan: treat hyperkalemia with IV insulin and D50 Add IV bicarb drip No plans for renal replacement therapy Check ultrasound of the kidneys if no plans for immediate hospice care/comfort care
[2022-05-12] MEDS ORDERED: MORPHINE SULFATE 4 MG/ML SYRINGE IV PRN (12:14)
[2022-05-12 14:22] VITALS: BP 126/84; PULSE 84; TEMP 98.3
--- NOTE | 2022-05-12 14:22 | P.HPIM ---
History of Present Illness H&P Date: 05/12/22 Chief Complaint: Uncontrolled pain 87-year-old male he is on hospice. He is brought in by daughter and other family member for weakness, intractable pain. Patient has a history of prostate cancer. He has undergone several rounds of chemotherapy. Family and patient decided that he is hospice and now is DO NOT RESUSCITATE. We are not pursuing any more treatments. Patient stated at home and has been having worsening weakness and intractable pain. He is postop a follow-up appointment with hospice in one week however family does not feel that patient can wait that lo ng. Patient has no other complaints except for his acute on chronic back pain that is presumed to be secondary to his prostate cancer. Family feels that patient is too weak to be cared for at home Hematocrit patient and family at bedside and they are requesting to proceed with hospice care; hospice consult was placed Review of Systems REVIEW OF SYSTEMS: CONSTITUTIONAL: No fever, no malaise, no fatigue. HEENT: No recent visual problems or hearing problems. Denied any sore throat. CARDIOVASCULAR: No chest pain, orthopnea, PND, no palpitations, no syncope. PULMONARY: No shortness of breath, no cough, no hemoptysis. GASTROINTESTINAL: No diarrhea, no nausea, no vomiting, no abdominal pain. NEUROLOGICAL: No headaches, no weakness, no numbness. HEMATOLOGICAL: Denies any bleeding or petechiae. GENITOURINARY: Denies any burning micturition, frequency, or urgency. MUSCULOSKELETAL/RHEUMATOLOGICAL: Denies any joint pain, swelling, or any muscle pain. ENDOCRINE: Denies any polyuria or polydipsia. The rest of the 14-point review of systems is negative. Past Medical History Past Medical History: Cancer, GI Bleed, Hearing Disorder / Deafness, Liver Disease, Osteoarthritis (OA), Prostate Disorder Additional Past Medical History / Comment(s): PUD/bleeding ulcer/BPH, prostate cancer, bladder cancer, past sbo, History of Any Multi-Drug Resistant Organisms: None Reported Past Surgical History: Bladder Surgery, Bowel Resection Additional Past Surgical History / Comment(s): upper endoscopy, colonoscopy,exp lap,BOWEL RESECTION Past Anesthesia/Blood Transfusion Reactions: No Reported Reaction Past Psychological History: No Psychological Hx Reported Additional Psychological History / Comment(s): pt's daughter and her family live with pt. He is independent. Pt drives a car.no home care services reieved, no medical equipment used. Smoking Status: Former smoker Past Alcohol Use History: Rare Additional Past Alcohol Use History / Comment(s): smoked from 1946 to 1974- 2 ppd. Past Drug Use History: None Reported Additional Drug Use History / Comment(s): used cocaine in the - Past Family History Father Family Medical History: No Reported History, COPD, Vascular Disorder Additional Family Medical History / Comment(s): age 59 cerebral anuerysm Mother Family Medical History: No Reported History Brother(s) Family Medical History: Coronary Artery Disease (CAD) Additional Family Medical History / Comment(s): at age 48 massive mi Sister(s) Family Medical History: No Reported History Daughter(s) Family Medical History: No Reported History Medications and Allergies Home Medications Medication Instructions Recorded Confirmed Type Tamsulosin HCl [Flomax] 0.4 mg PO DAILY 09/25/14 05/11/18 History Multivitamins, Thera [Multivitamin 1 tab PO DAILY 04/07/18 05/11/18 History (formulary)] Abiraterone Acetate [Zytiga] 1,000 mg PO BID 05/11/18 05/11/18 History predniSONE 5 mg PO DAILY 05/11/18 05/11/18 History Ferrous Sulfate [Iron] 325 mg PO BID-W/MEALS #60 tablet 05/14/18 Rx Pantoprazole [Protonix] 40 mg PO DAILY #2 tablet. 05/14/18 Rx cefUROXime axetiL [Ceftin] 500 mg PO BID #10 tab 05/14/18 Rx Allergies Allergy/AdvReac Type Severity Reaction Status Date / Time No Known Allergies Allergy Verified 05/11/22 22:08 Physical Exam Vitals: Vital Signs Temp Pulse Pulse Resp BP BP Pulse Ox 05/12/22 08:00 98.1 F 100 12 121/73 94 L 05/12/22 06:50 98.1 F 109 H 14 145/79 96 05/12/22 03:16 99 16 143/81 95 05/11/22 22:05 97.6 F 113 H 20 106/69 98 Intake and Output 05/11/22 05/12/22 05/12/22 22:59 06:59 14:59 Other: Weight 78.018 kg 78.018 kg PHYSICAL EXAMINATION: GENERAL: The patient is alert and oriented x3, not in any acute distress. Well developed, well nourished. HEENT: Pupils are round and equally reacting to light. EOMI. No scleral icterus. No conjunctival pallor. Normocephalic, atraumatic. No pharyngeal erythema. No thyromegaly. CARDIOVASCULAR: S1 and S2 present. No murmurs, rubs, or gallops. PULMONARY: Chest is clear to auscultation, no wheezing or crackles. ABDOMEN: Soft, nontender, nondistended, normoactive bowel sounds. No palpable organomegaly. MUSCULOSKELETAL: No joint swelling or deformity. EXTREMITIES: No cyanosis, clubbing, or pedal edema. NEUROLOGICAL: Gross neurological examination did not reveal any focal deficits. SKIN: No rashes. Results CBC & Chem 7: 05/11/22 23:16 05/12/22 05:37 Labs: Abnormal Lab Results - Last 24 Hours (Table) 05/11/22 05/11/22 05/12/22 Range/Units 23:16 23:16 05:37 WBC 11.6 H (3.8-10.6) k/uL RBC 3.99 L (4.30-5.90) m/uL Hgb 10.6 L (13.0-17.5) gm/dL Hct 33.3 L (39.0-53.0) % Neutrophils # 10.6 H (1.3-7.7) k/uL Lymphocytes # 0.7 L (1.0-4.8) k/uL Sodium 133 L 133 L (137-145) mmol/L Potassium 6.8 H* 5.9 H (3.5-5.1) mmol/L Carbon Dioxide 13 L 12 L (22-30) mmol/L BUN 97 H 91 H (9-20) mg/dL Creatinine 9.95 H* 10.31 H* (0.66-1.25) mg/dL Glucose 132 H 110 H (74-99) mg/dL POC Glucose (mg/dL) (70-110) mg/dL 05/12/22 Range/Units 06:50 WBC (3.8-10.6) k/uL RBC (4.30-5.90) m/uL Hgb (13.0-17.5) gm/dL Hct (39.0-53.0) % Neutrophils # (1.3-7.7) k/uL Lymphocytes # (1.0-4.8) k/uL Sodium (137-145) mmol/L Potassium (3.5-5.1) mmol/L Carbon Dioxide (22-30) mmol/L BUN (9-20) mg/dL Creatinine (0.66-1.25) mg/dL Glucose (74-99) mg/dL POC Glucose (mg/dL) 127 H (70-110) mg/dL Assessment and Plan Assessment: 1. Acute renal injury; obstructive versus ATN - Nephrology on board; patient is refusing any treatment at this time; no plans for renal replacement therapy 2. Hyperkalemia related to AK I; patient refuses treatment in the ED and wants to be kept comfortable 3. Metabolic acidosis related to renal failure/obstructive uropathy; nephrology is recommending IV bicarbonate infusion; patient is refusing 4. Chronic kidney disease stage III; patient is a previous baseline of creatinine 1.30 and was found to have creatinine of 10.30 upon admission; renal replacement therapy - Nephrology recommending renal ultrasound if patient doesn't proceed with hospice/comfort care 5. Metastatic prostate cancer; patient has been placed on comfort; morphine every 12 hours as needed; hospice to evaluate patient and make further changes
[2022-05-12] MEDS ORDERED: SCOPOLAMINE 1 MG/72 HR PATCH TRANSDERM SCH (15:00)
== END 2022-05-12 16:03 | disposition hospice, inpatient (51) | DRG 947 ==
LOC: EC 21:57 → 5NMEDONC 22:30 → 3SCARD 05-12 00:16 → 2SICU 05-12 07:10
PROVIDERS: ADMIT Hospitalist; ATTEND Hospitalist
DX: G89.3 Neoplasm related pain (acute) (chronic) (principal); N17.0 Acute kidney failure with tubular necrosis; C79.9 Secondary malignant neoplasm of unspecified site; E87.2 Acidosis; C61 Malignant neoplasm of prostate; E87.5 Hyperkalemia; R53.1 Weakness; N13.9 Obstructive and reflux uropathy, unspecified; N18.31 Chronic kidney disease, stage 3a; K59.00 Constipation, unspecified; M54.9 Dorsalgia, unspecified; H91.90 Unspecified hearing loss, unspecified ear; K76.9 Liver disease, unspecified; M19.90 Unspecified osteoarthritis, unspecified site; N40.0 Benign prostatic hyperplasia without lower urinary tract symptoms; Z66 Do not resuscitate; Z28.310 Unvaccinated for COVID-19; Z87.891 Personal history of nicotine dependence; Z92.21 Personal history of antineoplastic chemotherapy; Z79.899 Other long term (current) drug therapy; Z87.11 Personal history of peptic ulcer disease; Z85.51 Personal history of malignant neoplasm of bladder; Z82.41 Family history of sudden cardiac death; Z82.49 Family history of ischemic heart disease and other diseases of the circulatory system
CPT/HCPCS: 80048; 84132; 85025; 93005; 96361; 96365; 96375; 96376; 99285

== ENCOUNTER 2022-05-12 15:45 | Inpatient (IN) | payer MEDICAID ==
[2022-05-12] MEDS ORDERED: ONDANSETRON 4 MG/2 ML VIAL IVP PRN (15:56)
[2022-05-12] MEDS ORDERED: ATROPINE OPHTH SOLN 1% 5ML BTL SUBLINGUAL PRN (15:56)
[2022-05-12] MEDS ORDERED: MORPHINE SULFATE 4 MG/ML SYRINGE IVP PRN (16:01)
[2022-05-12] MEDS: SCOPOLAMINE 1 MG/72 HR PATCH TRANSDERM SCH (16:10)
[2022-05-12] MEDS: MORPHINE SULFATE (100 MG/2 ML) 100 MG in SODIUM CHLORIDE 0.9% 100 ML IV SCH (17:21)
[2022-05-13 05:10] VITALS: BP 122/67; TEMP 97.2
[2022-05-13 08:45] VITALS: PULSE 94
[2022-05-13] MEDS: MORPHINE SULFATE (100 MG/2 ML) 100 MG in SODIUM CHLORIDE 0.9% 100 ML IV SCH ×2 (10:26→23:13)
--- NOTE | 2022-05-13 13:58 | P.HPIM ---
History of Present Illness H&P Date: 05/13/22 Chief Complaint: Pain and symptom management 87-year-old male he is on hospice. He is brought in by daughter and other family member for weakness, intractable pain. Patient has a history of prostate cancer. He has undergone several rounds of chemotherapy. Family and patient decided that he is hospice and now is DO NOT RESUSCITATE. We are not pursuing any more treatments. Patient stated at home and has been having worsening weakness and intractable pain. He is postop a follow-up appointment with hospice in one week however family does not feel that patient can wait that long. Patient has no other complaints except for his acute on chronic back pain that is presumed to be secondary to his prostate cancer. Family feels that patient is too weak to be cared for at home Hematocrit patient and family at bedside and they are requesting to proceed with hospice care; hospice consult was placed Patient seen and evaluated with daughter at bedside; patient seems to be comfortable and pain-free Review of Systems ROS unobtainable: due to mental status Past Medical History Past Medical History: Cancer, GI Bleed, Hearing Disorder / Deafness, Liver Disease, Osteoarthritis (OA), Prostate Disorder Additional Past Medical History / Comment(s): PUD/bleeding ulcer/BPH, prostate cancer, bladder cancer, past sbo, History of Any Multi-Drug Resistant Organisms: None Reported Past Surgical History: Bladder Surgery, Bowel Resection Additional Past Surgical History / Comment(s): upper endoscopy, colonoscopy,exp lap,BOWEL RESECTION Past Anesthesia/Blood Transfusion Reactions: No Reported Reaction Past Psychological History: No Psychological Hx Reported Additional Psychological History / Comment(s): pt's daughter and her family live with pt. He is independent. Pt drives a car.no home care services reieved, no m edical equipment used. Smoking Status: Former smoker Past Alcohol Use History: Rare Additional Past Alcohol Use History / Comment(s): smoked from 1946 to 1974- 2 ppd. Past Drug Use History: None Reported Additional Drug Use History / Comment(s): used cocaine in the s - Past Family History Father Family Medical History: No Reported History, COPD, Vascular Disorder Additional Family Medical History / Comment(s): age 59 cerebral anuerysm Mother Family Medical History: No Reported History Brother(s) Family Medical History: Coronary Artery Disease (CAD) Additional Family Medical History / Comment(s): at age 48 massive mi Sister(s) Family Medical History: No Reported History Daughter(s) Family Medical History: No Reported History Medications and Allergies Home Medications Medication Instructions Recorded Confirmed Type Tamsulosin HCl [Flomax] 0.4 mg PO DAILY 09/25/14 05/12/22 History Multivitamins, Thera [Multivitamin 1 tab PO DAILY 04/07/18 05/12/22 History (formulary)] Abiraterone Acetate [Zytiga] 1,000 mg PO BID 05/11/18 05/12/22 History predniSONE 5 mg PO DAILY 05/11/18 05/12/22 History Ferrous Sulfate [Iron] 325 mg PO BID-W/MEALS #60 tablet 05/14/18 05/12/22 Rx Pantoprazole [Protonix] 40 mg PO DAILY #2 tablet. 05/14/18 05/12/22 Rx cefUROXime axetiL [Ceftin] 500 mg PO BID #10 tab 05/14/18 05/12/22 Rx Allergies Allergy/AdvReac Type Severity Reaction Status Date / Time No Known Allergies Allergy Verified 05/12/22 22:11 Physical Exam Vitals: Vital Signs Temp Pulse Resp BP Pulse Ox 05/13/22 08:00 94 8 L 122/67 96 05/13/22 02:00 97.2 F L 90 10 L 122/67 98 05/12/22 19:54 97.4 F L 81 8 L 127/69 90 L Intake and Output 05/12/22 05/13/22 05/13/22 22:59 06:59 14:59 Intake Total 1.930 Output Total 0 Balance 1.930 0 Intake: Intake, IV Titration 1.930 Amount Morphine Sulfate (100 mg/ 1.930 2 ml) 100 mg In Sodium Chloride 0.9% 100 ml @ 1 MG/HR 1.02 mls/hr IV . Q24H [facility] Rx#:[id number] Output: Urine 0 Other: Weight 78 kg PHYSICAL EXAMINATION: GENERAL: Resting comfortably, not in any acute distress. HEENT: Pupils are round and equally reacting to light. EOMI. No scleral icterus. No conjunctival pallor. Normocephalic, atraumatic. No pharyngeal erythema. No thyromegaly. CARDIOVASCULAR: S1 and S2 present. No murmurs, rubs, or gallops. PULMONARY: Chest is clear to auscultation, no wheezing or crackles. ABDOMEN: Soft, nontender, nondistended, normoactive bowel sounds. No palpable organomegaly. MUSCULOSKELETAL: No joint swelling or deformity. EXTREMITIES: No cyanosis, clubbing, or pedal edema. NEUROLOGICAL: Gross neurological examination did not reveal any focal deficits. SKIN: No rashes. Assessment and Plan Assessment: 1. Acute renal injury; obstructive versus ATN - Nephrology on board; patient is refusing any treatment at this time; no plans for renal replacement therapy 2. Hyperkalemia related to AK I; patient refuses treatment in the ED and wants to be kept comfortable 3. Metabolic acidosis related to renal failure/obstructive uropathy; nephrology is recommending IV bicarbonate infusion; patient is refusing 4. Chronic kidney disease stage III; patient is a previous baseline of creatinine 1.30 and was found to have creatinine of 10.30 upon admission; renal replacement therapy - Nephrology recommending renal ultrasound if patient doesn't proceed with hospice/comfort care 5. Metastatic prostate cancer; patient has been placed on comfort; morphine every 12 hours as needed; hospice to evaluate patient and make further changes
[2022-05-13] MEDS: LORazepam 2 MG/ML INJ IV PRN ×2 (16:02→22:26)
[2022-05-14] MEDS: MORPHINE SULFATE (100 MG/2 ML) 100 MG in SODIUM CHLORIDE 0.9% 100 ML IV SCH ×2 (08:19→17:26)
[2022-05-14] MEDS: LORazepam 2 MG/ML INJ IV PRN ×2 (11:18→20:27)
--- NOTE | 2022-05-14 16:39 | P.PN ---
Subjective Progress Note Date: 05/14/22 Patient is evaluated today resting in bed with family at the bedside he is continuing with inpatient hospice. He continues on morphine gtt, he does have spontaneous eye opening, respirations are around 10. He displays intermittent arm twitching and per family has been moaning on and off as well. Blood pressure this morning 122/67. No review of systems completed patient is on morphine gtt and sedated, resting comfortable. Physical Examination General: Sedated, spontaneous eye opening, no acute distress Cardiopulmonary: Lung sounds clear, S1 S2 auscultated, respirations 10 GI: Abdomen soft nontender, indwelling catheter in place Neurological: Unable to complete Assessment and Plan Assessment Acute renal injury, obstructive versus ATN recommended for renal replacement therapy Hyperkalemia related to HIRAL patient refused treatment Metabolic acidosis related to renal failure/obstructive uropathy, recommending for IV bicarbonate which patient refused Chronic kidney disease stage 3, previous baseline creatinine 1.30, creatinine 10.30 on admission refusing renal replacement therapy Metastatic prostate cancer patient is admitted to inpatient hospice Plan Continue with morphine gtt and comfort care measures Ativan dosing adjusted today Patient appears to be resting comfortably at this time Hospice following patient Continue other supportive care The impression and plan of care has been dictated by Roxanne Tellez Nurse Practitioner as directed. Dr. Josafat MD I have performed a history and physical examination and medical decision making of this patient, discussed the same with the dictator, and agree with the dictators assessment and plan as written, documented as a scribe. Based on total visit time, I have performed more than 50% of this visit. Objective - Vital Signs Vital signs: Vital Signs Temp 97.2 F L 05/13/22 02:00 Pulse 94 05/13/22 08:00 Resp 8 L 05/13/22 08:00 BP 122/67 05/13/22 08:00 Pulse Ox 96 05/13/22 08:00 FiO2 Intake & Output 05/13/22 05/14/22 05/14/22 18:59 06:59 18:59 Intake Total 129.665 49.500 100.833 Output Total 0 Balance 129.665 49.500 100.833 Intake: Intake, IV Titration 129.665 49.500 100.833 Amount Morphine Sulfate (100 mg/ 129.665 49.500 100.833 2 ml) 100 mg In Sodium Chloride 0.9% 100 ml @ 1 MG/HR 1.02 mls/hr IV . Q24H [facility] Rx#:[id number] Oral 0 Output: Urine 0 Assessment and Plan Time with Patient: Less than 30
[2022-05-14] MEDS: LORazepam 2 MG/ML INJ IV SCH ×2 (17:25→23:38)
[2022-05-15] MEDS: MORPHINE SULFATE (100 MG/2 ML) 100 MG in SODIUM CHLORIDE 0.9% 100 ML IV SCH ×3 (02:14→17:47)
[2022-05-15] MEDS: LORazepam 2 MG/ML INJ IV SCH ×4 (06:14→23:47)
[2022-05-15] MEDS: LORazepam 2 MG/ML INJ IV PRN (11:08)
--- NOTE | 2022-05-15 13:38 | P.PN ---
Subjective Progress Note Date: 05/15/22 Patient is evaluated today resting in bed with family at the bedside he is continuing with inpatient hospice. He continues on morphine gtt, he does have spontaneous eye opening, respirations are around 10. He displays intermittent arm twitching and per family has been moaning on and off as well. Blood pressure this morning 122/67. 05/15/2022 Patient continues on morphine gtt with inpatient hospice. Family at the bedside. He appears to be resting comfortably. Respirations between 10 and 12 today. No a dditional medication changes or anticipated needs today. Morphine gtt being titrated appropriately. No review of systems completed patient is on morphine gtt and sedated, resting comfortable. Physical Examination General: Sedated, spontaneous eye opening, no acute distress Cardiopulmonary: Lung sounds clear, S1 S2 auscultated, respirations 10 GI: Abdomen soft nontender, indwelling catheter in place Neurological: Unable to complete Assessment and Plan Assessment Acute renal injury, obstructive versus ATN recommended for renal replacement therapy Hyperkalemia related to HIRAL patient refused treatment Metabolic acidosis related to renal failure/obstructive uropathy, recommending for IV bicarbonate which patient refused Chronic kidney disease stage 3, previous baseline creatinine 1.30, creatinine 10.30 on admission refusing renal replacement therapy Metastatic prostate cancer patient is admitted to inpatient hospice Plan Continue with morphine gtt and comfort care measures Patient appears to be resting comfortably at this time Hospice following patient Continue all other supportive care The impression and plan of care has been dictated by Roxanne Tellez, Nurse Practitioner as directed. Dr. Josafat MD I have performed a history and physical examination and medical decision making of this patient, discussed the same with the dictator, and agree with the dictators assessment and plan as written, documented as a scribe. Based on total visit time, I have performed more than 50% of this visit. Objective - Vital Signs Vital signs: Vital Signs Temp 97.2 F L 05/13/22 02:00 Pulse 94 05/13/22 08:00 Resp 14 05/15/22 04:42 BP 122/67 05/13/22 08:00 Pulse Ox 96 05/13/22 08:00 FiO2 Intake & Output 05/14/22 05/15/22 05/15/22 18:59 06:59 18:59 Intake Total 202.833 102.0 102.00 Balance 202.833 102.0 102.00 Intake: Intake, IV Titration 202.833 102.0 102.00 Amount Morphine Sulfate (100 mg/ 202.833 102.0 102.00 2 ml) 100 mg In Sodium Chloride 0.9% 100 ml @ 1 MG/HR 1.02 mls/hr IV . Q24H [facility] Rx#:[id number] Oral 0 Other: # Voids 0 Assessment and Plan Time with Patient: Less than 30
[2022-05-15] MEDS: SCOPOLAMINE 1 MG/72 HR PATCH TRANSDERM SCH (14:46)
[2022-05-16] MEDS: MORPHINE SULFATE (100 MG/2 ML) 100 MG in SODIUM CHLORIDE 0.9% 100 ML IV SCH ×3 (01:35→16:20)
[2022-05-16] MEDS: LORazepam 2 MG/ML INJ IV SCH ×3 (06:02→17:54)
--- NOTE | 2022-05-16 18:32 | P.PN ---
Subjective Patient is evaluated today resting in bed with family at the bedside he is continuing with inpatient hospice. He continues on morphine gtt, he does have spontaneous eye opening, respirations are around 10. He displays intermittent arm twitching and per family has been moaning on and off as well. Blood pressure this morning 122/67. 05/15/2022 Patient continues on morphine gtt with inpatient hospice. Family at the bedside. He appears to be resting comfortably. Respirations between 10 and 12 today. No additional medication changes or anticipated needs today. Morphine gtt being titrated appropriately. Subjective: Resuming the care of the patient today 05/16/2022 Patient is under hospice care Patient looks calm, no distress or pain signs are noted Family at bedside Objective - Vital Signs Vital signs: Vital Signs Temp 97.2 F L 05/13/22 02:00 Pulse 94 05/13/22 08:00 Resp 14 05/15/22 20:00 BP 122/67 05/13/22 08:00 Pulse Ox 96 05/13/22 08:00 FiO2 Intake & Output 05/15/22 05/16/22 05/16/22 18:59 06:59 18:59 Intake Total 193.266 102 102 Output Total 0 Balance 193.266 102 102 Intake: Intake, IV Titration 193.266 102 102 Amount Morphine Sulfate (100 mg/ 193.266 102 102 2 ml) 100 mg In Sodium Chloride 0.9% 100 ml @ 1 MG/HR 1.02 mls/hr IV . Q24H [facility] Rx#:[id number] Output: Urine 0 Other: # Voids 0 # Bowel Movements 0 - Exam -GENERAL: The patient is sleepy, no distress HEENT: Pupils are round and equally reacting to light. EOMI. No scleral icterus. No conjunctival pallor. Normocephalic, atraumatic. No pharyngeal erythema. No thyromegaly. CARDIOVASCULAR: S1 and S2 present. No murmurs, rubs, or gallops. PULMONARY: Chest is clear to auscultation, no wheezing or crackles. ABDOMEN: Soft, nontender, nondistended, normoactive bowel sounds. No palpable organomegaly. MUSCULOSKELETAL: No joint swelling or deformity. EXTREMITIES: No cyanosis, clubbing, or pedal edema. NEUROLOGICAL: Gross neurological examination did not reveal any focal deficits. SKIN: No rashes. no petechiae. Assessment and Plan Assessment: Metastatic prostate cancer patient is admitted to inpatient hospice Acute renal injury, obstructive versus ATN recommended for renal replacement therapy Hyperkalemia related to HIRAL patient refused treatment Metabolic acidosis related to renal failure/obstructive uropathy, recommending for IV bicarbonate which patient refused Chronic kidney disease stage 3, previous baseline creatinine 1.30, creatinine 10.30 on admission refusing renal replacement therapy Plan: Continue with morphine gtt and comfort care measures Patient appears to be resting comfortably at this time Hospice following patient Continue all other supportive care
[2022-05-17] MEDS: LORazepam 2 MG/ML INJ IV SCH ×4 (00:47→17:53)
[2022-05-17] MEDS: MORPHINE SULFATE (100 MG/2 ML) 100 MG in SODIUM CHLORIDE 0.9% 100 ML IV SCH ×4 (00:48→22:48)
[2022-05-17 12:04] VITALS: BMI 25.4
--- NOTE | 2022-05-17 19:51 | P.PN ---
Subjective Patient is evaluated today resting in bed with family at the bedside he is continuing with inpatient hospice. He continues on morphine gtt, he does have spontaneous eye opening, respirations are around 10. He displays intermittent arm twitching and per family has been moaning on and off as well. Blood pressure this morning 122/67. 05/15/2022 Patient continues on morphine gtt with inpatient hospice. Family at the bedside. He appears to be resting comfortably. Respirations between 10 and 12 today. No additional medication changes or anticipated needs today. Morphine gtt being titrated appropriately. Subjective: Resuming the care of the patient today 05/16/2022 Patient is under hospice care Patient looks calm, no distress or pain signs are noted Family at bedside 05/17/2022 Patient looks comfortable No family at bedside Continue with comfort care measures Objective - Vital Signs Vital signs: Vital Signs Temp 97.2 F L 05/13/22 02:00 Pulse 94 05/13/22 08:00 Resp 14 05/15/22 20:00 BP 122/67 05/13/22 08:00 Pulse Ox 96 05/13/22 08:00 FiO2 Intake & Output 05/16/22 05/17/22 05/17/22 18:59 06:59 18:59 Intake Total 195.6 102 121.607 Balance 195.6 102 121.607 Weight 78 kg Intake: Intake, IV Titration 195.6 102 121.607 Amount Morphine Sulfate (100 mg/ 195.6 102 121.607 2 ml) 100 mg In Sodium Chloride 0.9% 100 ml @ 1 MG/HR 1.02 mls/hr IV . Q24H [facility] Rx#:[id number] - Exam -GENERAL: The patient is sleepy, no distress HEENT: Pupils are round and equally reacting to light. EOMI. No scleral icterus. No conjunctival pallor. Normocephalic, atraumatic. No pharyngeal erythema. No thyromegaly. CARDIOVASCULAR: S1 and S2 present. No murmurs, rubs, or gallops. PULMONARY: Chest is clear to auscultation, no wheezing or crackles. ABDOMEN: Soft, nontender, nondistended, normoactive bowel sounds. No palpable organomegaly. MUSCULOSKELETAL: No joint swelling or deformity. EXTREMITIES: No cyanosis, clubbing, or pedal edema. NEUROLOGICAL: Gross neurological examination did not reveal any focal deficits. SKIN: No rashes. no petechiae. Assessment and Plan Assessment: Metastatic prostate cancer patient is admitted to inpatient hospice Acute renal injury, obstructive versus ATN recommended for renal replacement therapy Hyperkalemia related to HIRAL patient refused treatment Metabolic acidosis related to renal failure/obstructive uropathy, recommending for IV bicarbonate which patient refused Chronic kidney disease stage 3, previous baseline creatinine 1.30, creatinine 10.30 on admission refusing renal replacement therapy Plan: Continue with morphine gtt and comfort care measures Patient appears to be resting comfortably at this time Hospice following patient Continue all other supportive care
[2022-05-18] MEDS: LORazepam 2 MG/ML INJ IV SCH ×2 (00:12→06:00)
[2022-05-18] MEDS: MORPHINE SULFATE (100 MG/2 ML) 100 MG in SODIUM CHLORIDE 0.9% 100 ML IV SCH (04:45)
[2022-05-18 06:02] VITALS: RESP 16
[2022-05-18] MEDS: LORazepam 2 MG/ML INJ IV PRN (07:49)
--- NOTE | 2022-05-18 23:16 | P.DS ---
Providers Date of admission: 05/12/22 16:04 Attending physician: Shikha Saldana Primary care physician: Olga Palafox Hospital Course: Diagnoses: Metastatic prostate cancer patient is admitted to inpatient hospice Acute renal injury, obstructive versus ATN recommended for renal replacement therapy Hyperkalemia related to HIRAL patient refused treatment Metabolic acidosis related to renal failure/obstructive uropathy, recommending for IV bicarbonate which patient refused Chronic kidney disease stage 3, previous baseline creatinine 1.30, creatinine 10.30 on admission refusing renal replacement therapy Hospital course: Patient is evaluated today resting in bed with family at the bedside he is continuing with inpatient hospice. He continues on morphine gtt, he does have spontaneous eye opening, respirations are around 10. He displays intermittent arm twitching and per family has been moaning on and off as well. Blood pressure this morning 122/67. 05/15/2022 Patient continues on morphine gtt with inpatient hospice. Family at the bedside. He appears to be resting comfortably. Respirations between 10 and 12 today. No additional medication changes or anticipated needs today. Morphine gtt being titrated appropriately. Subjective: Resuming the care of the patient today 05/16/2022 Patient is under hospice care Patient looks calm, no distress or pain signs are noted Family at bedside 05/17/2022 Patient looks comfortable No family at bedside Continue with comfort care measures 05/18/2022 Today patient intermission coordinator before have a chance to evaluate him. Please refer to nurses note for more details Plan - Discharge Summary New Discharge Prescriptions: No Action Tamsulosin HCl [Flomax] 0.4 mg PO DAILY Multivitamins, Thera [Multivitamin (formulary)] 1 tab PO DAILY predniSONE 5 mg PO DAILY Abiraterone Acetate [Zytiga] 1,000 mg PO BID Pantoprazole [Protonix] 40 mg PO DAILY #2 tablet. cefUROXime axetiL [Ceftin] 500 mg PO BID #10 tab Ferrous Sulfate [Iron] 325 mg PO BID-W/MEALS #60 tablet Discharge Medication List Tamsulosin HCl [Flomax] 0.4 mg PO DAILY 09/25/14 [History] Multivitamins, Thera [Multivitamin (formulary)] 1 tab PO DAILY 04/07/18 [ History] Abiraterone Acetate [Zytiga] 1,000 mg PO BID 05/11/18 [History] predniSONE 5 mg PO DAILY 05/11/18 [History] Ferrous Sulfate [Iron] 325 mg PO BID-W/MEALS #60 tablet 05/14/18 [Rx] Pantoprazole [Protonix] 40 mg PO DAILY #2 tablet. 05/14/18 [Rx] cefUROXime axetiL [Ceftin] 500 mg PO BID #10 tab 05/14/18 [Rx] Discharge Disposition: - Preliminary Cause of Preliminary Cause of : metastatic cancer of prostate
== END 2022-05-18 10:30 | disposition expired | DRG 951 ==
LOC: 2SICU 16:04 → 5NMEDONC 05-13 13:33
PROVIDERS: ADMIT Hospitalist; ATTEND Hospitalist
DX: Z51.5 Encounter for palliative care (principal); N17.0 Acute kidney failure with tubular necrosis; E87.2 Acidosis; C79.9 Secondary malignant neoplasm of unspecified site; Z66 Do not resuscitate; G89.3 Neoplasm related pain (acute) (chronic); C61 Malignant neoplasm of prostate; N18.30 Chronic kidney disease, stage 3 unspecified; E87.5 Hyperkalemia; H91.90 Unspecified hearing loss, unspecified ear; N40.0 Benign prostatic hyperplasia without lower urinary tract symptoms; Z79.899 Other long term (current) drug therapy; Z87.891 Personal history of nicotine dependence; Z87.11 Personal history of peptic ulcer disease; Z85.51 Personal history of malignant neoplasm of bladder